=== PATIENT | female | born 1950 | race Caucasian/White ===

== ENCOUNTER → 2017-02-02 | Outpatient (CLI) | payer MEDICARE, OTHER ==
--- NOTE | 2017-02-02 15:54 | REPMRS ---
Patient History The patient states she has not had a clinical breast exam in over a year. Baseline Mammogram Patient is postmenopausal. No known family history of cancer. Reductions of both breasts, 2006. Digital Woman Screen Mammo: February 02, 2017 - Exam #: [id number] Bilateral CC and MLO view(s) were taken. Technologist: Sweetie White, Technologist FINDINGS: There are scattered fibroglandular densities. There is no evidence of cancer on this mammogram. ASSESSMENT: BI-RADS/ACR category 2 mammogram. Benign finding(s). Recommendation Routine screening mammogram of both breasts in 1 year (for women over age 40). This mammogram was interpreted with the aid of an FDA-approved computer-aided dectection system. Electronically Signed By: Jimbo Driver MD 02/02/17 [id number]
== END ==
LOC: M WHC 14:23
PROVIDERS: ATTEND Family Medicine
DX: Z12.31 Encounter for screening mammogram for malignant neoplasm of breast (principal)

== ENCOUNTER → 2017-04-28 | Outpatient (CLI) | payer MEDICARE, OTHER ==
[2017-04-28 12:50] LABS: CALCIUM LEVEL 9.6 MG/DL (8.8-10.2); CREATININE FOR GFR 1.17 MG/DL (0.55-1.02); GLOMERULAR FILTRATION RATE 49.3 (>45); PHOSPHORUS LEVEL 2.8 MG/DL (2.5-4.9); POTASSIUM SERUM 4.3 MEQ/L (3.5-5.1)
== END ==
LOC: M LAB 11:28
PROVIDERS: ATTEND Nurse Practitioner Family
DX: I10 Essential (primary) hypertension (principal)

== ENCOUNTER → 2017-12-15 | Outpatient (CLI) | payer MEDICARE, OTHER | LOC: M RAD 07:13 | DX: I70.1 Atherosclerosis of renal artery (principal) | CPT/HCPCS: 76775 ==

== ENCOUNTER → 2017-12-22 | Outpatient (CLI) | payer MEDICARE, OTHER ==
[2017-12-22 13:45] LABS: ANION GAP 6 MEQ/L (8-16); BLOOD UREA NITROGEN 12 MG/DL (7-18); CARBON DIOXIDE LEVEL 31 MEQ/L (21-32); CHLORIDE LEVEL 105 MEQ/L (98-107); GLOMERULAR FILTRATION RATE > 60.0 (>45); GLUCOSE, FASTING 113 MG/DL (70-100); POTASSIUM SERUM 4.1 MEQ/L (3.5-5.1); SODIUM LEVEL 142 MEQ/L (136-145)
== END ==
LOC: M LAB 13:00
DX: I11.9 Hypertensive heart disease without heart failure (principal)
CPT/HCPCS: 80048

== ENCOUNTER → 2018-04-18 | Outpatient (CLI) | payer MEDICARE, OTHER ==
[2018-04-18 13:14] LABS: ANION GAP 4 MEQ/L (8-16); BLOOD UREA NITROGEN 20 MG/DL (7-18); CALCIUM LEVEL 9.5 MG/DL (8.8-10.2); CARBON DIOXIDE LEVEL 34 MEQ/L (21-32); CHLORIDE LEVEL 104 MEQ/L (98-107); CREATININE FOR GFR 1.23 MG/DL (0.55-1.30); GLOMERULAR FILTRATION RATE 46.4 (>45); GLUCOSE, FASTING 87 MG/DL (70-100); POTASSIUM SERUM 4.7 MEQ/L (3.5-5.1); SODIUM LEVEL 142 MEQ/L (136-145)
== END ==
LOC: M LAB 12:05
DX: I11.9 Hypertensive heart disease without heart failure (principal)
CPT/HCPCS: 80048

== ENCOUNTER → 2018-07-12 | Outpatient (CLI) | payer MEDICARE, OTHER ==
[2018-07-12 11:09] LABS: BILIRUBIN,TOTAL 0.6 MG/DL (0.2-1.0); CALCIUM LEVEL 9.5 MG/DL (8.8-10.2); CHOLESTEROL RISK RATIO 2.253 (<5); CREATININE FOR GFR 1.26 MG/DL (0.55-1.30); GLOMERULAR FILTRATION RATE 45.1 (>45); POTASSIUM SERUM 3.8 MEQ/L (3.5-5.1); TOTAL PROTEIN 6.7 GM/DL (6.4-8.2)
== END ==
LOC: M LAB 09:57
PROVIDERS: ATTEND Physician Assistant
DX: I11.9 Hypertensive heart disease without heart failure (principal); E78.2 Mixed hyperlipidemia

== ENCOUNTER 2018-09-13 11:44 | Inpatient (IN) | payer MEDICARE, OTHER ==
[~2018-09-13] VITALS: Ht 157.5 cm; Wt 76.0 kg
[2018-09-13] MEDS: ASCORBIC ACID 500 MG TAB PO SCH (09:00)
[2018-09-13] MEDS: guaiFENesin ER 600 MG TAB PO SCH ×2 (09:00→21:41)
[2018-09-13] MEDS: IPRATROPIUM 0.5MG/ALBUTEROL 2.5MG INH SOL UD 3ML (DUONEB)(J7620) NEB PRN ×3 (11:55→12:35)
[2018-09-13 12:07] LABS: BASO % 0.2 % (0.0-1.0); EOS # 0.3 10^3/uL (0.0-0.50); EOS % 1.9 % (0.0-3.0); HEMATOCRIT 44.9 % (36.0-47.0); HEMOGLOBIN 14.6 g/dl (12.0-15.5); LYMPH # 0.9 10^3/uL (1.5-4.5); LYMPH % 6.7 % (24.0-44.0); MEAN CORPUSCULAR HEMOGLOBIN 30.5 pg (27.0-33.0); MEAN CORPUSCULAR HGB CONC 32.5 g/dl (32.0-36.5); MEAN CORPUSCULAR VOLUME 93.7 fl (80.0-96.0); MONO # 1.1 10^3/uL (0.0-0.8); MONO % 8.5 % (0.0-5.0); NEUTROPHILS # 11.1 10^3/uL (1.8-7.7); NEUTROPHILS % 82.3 % (36.0-66.0); PLATELET COUNT, AUTOMATED 211 10^3/uL (150-450); RED BLOOD COUNT 4.79 10^6/uL (4.00-5.40); WHITE BLOOD COUNT 13.4 10^3/uL (4.0-10.0)
[2018-09-13] MEDS ORDERED: CRES40TA PO (12:15)
[2018-09-13] MEDS ORDERED: ADVA230A INH (12:15)
[2018-09-13] MEDS ORDERED: PRED5TA PO (12:15)
[2018-09-13] MEDS ORDERED: PROAAER10 INH (12:15)
[2018-09-13] MEDS ORDERED: SPIR1CAP INH (12:15)
[2018-09-13] MEDS ORDERED: ASPI1TAB PO (12:15)
[2018-09-13] MEDS ORDERED: TELM1TAB37 PO (12:15)
[2018-09-13 12:19] LABS: ABG BASE EXCESS 3.5 (-2.0-2.0); ABG HCO3 29.8 MEQ/L (22.0-26.0); ABG O2 SATURATION 98.7 % (95.0-99.0); ABG PARTIAL PRESSURE CO2 51.1 mmHg (35.0-45.0); ABG PARTIAL PRESSURE O2 134.5 mmHg (75.0-100.0); ABG STANDARD HCO3 27.6 MEQ/L (22.0-26.0); ABG TOTAL CO2 31.3 MEQ/L (23.0-31.0); ABG pH (ARTERIAL) 7.383 UNITS (7.350-7.450)
--- NOTE | 2018-09-13 12:33 | REP ---
Chest one-view HISTORY: Cough Comparison: 11/03/2015 The lungs are clear. The heart is normal in size. The pulmonary vasculature is normal in appearance. Impression: No acute disease. Electronically Signed by Jesse Pierson MD 09/13/2018 12:24 P
[2018-09-13 12:47] LABS: INFLUENZA A AMPLIFICATION POSITIVE (NEGATIVE); INFLUENZA B AMPLIFICATION NEGATIVE (NEGATIVE)
[2018-09-13 12:50] LABS: ALBUMIN 4.1 GM/DL (3.2-5.2); ALT/SGPT 27 U/L (12-78); BILIRUBIN,DIRECT 0.2 MG/DL (0.0-0.2); BILIRUBIN,TOTAL 0.6 MG/DL (0.2-1.0); BLOOD UREA NITROGEN 22 MG/DL (7-18); CALCIUM LEVEL 8.6 MG/DL (8.8-10.2); CARBON DIOXIDE LEVEL 30 MEQ/L (21-32); CHLORIDE LEVEL 107 MEQ/L (98-107); CPK CREATINE PHOSPHOKINASE 252 U/L (26-192); CREATININE FOR GFR 0.98 MG/DL (0.55-1.30); GLOMERULAR FILTRATION RATE > 60.0 (>45); GLUCOSE, FASTING 100 MG/DL (70-100); POTASSIUM SERUM 3.6 MEQ/L (3.5-5.1); SODIUM LEVEL 144 MEQ/L (136-145); TOTAL PROTEIN 6.6 GM/DL (6.4-8.2)
[2018-09-13 12:51] LABS: TROPONIN I < 0.02 NG/ML (< 0.10)
[2018-09-13] MEDS ORDERED: OSELTAMIVIR PHOSPHATE 75 MG CAP (TAMIFLU) PO ONE (13:00)
[2018-09-13 13:10] LABS: MB/CK RELATIVE INDEX 1.67 (< OR =4); NT-PRO BNP 308 PG/ML (<125); THYROID STIMULATING HORMONE 0.701 uIU/ML (0.358-3.740)
[2018-09-13] MEDS ORDERED: FIBECHW4 PO (13:34)
[2018-09-13] MEDS ORDERED: MUCI600T31 PO (13:34)
[2018-09-13] MEDS ORDERED: ALBU83IN INH (13:34)
[2018-09-13] MEDS ORDERED: VITA500C24 PO (13:34)
[2018-09-13] MEDS: IPRATROPIUM 0.5MG/ALBUTEROL 2.5MG INH SOL UD 3ML (DUONEB)(J7620) NEB SCH ×2 (13:57→19:49)
[2018-09-13] MEDS ORDERED: IPRATROPIUM 0.5MG/ALBUTEROL 2.5MG INH SOL UD 3ML (DUONEB)(J7620) NEB PRN (14:00)
[2018-09-13] MEDS: HEPARIN SOD (PORCINE) 5000 UNITS/ML VIAL SC SCH ×2 (14:00→21:45)
--- NOTE | 2018-09-13 14:49 | HPE ---
DATE OF ADMISSION: 09/13/2018 CHIEF COMPLAINT: Shortness of breath times 1 day. HISTORY OF PRESENT ILLNESS: This is a 68-year-old female with a past medical history of chronic obstructive pulmonary disease (COPD) on 2 liters home oxygen at night, hypertension, hyperlipidemia, who presents with significant shortness of breath since 2 a.m. this morning. Patient reports that she does have chronic COPD for which she follows with Dr. Washburn and she has been compliant with her home inhalers and 2 liters oxygen, which she takes at night. She does report her granddaughter, who visits her son, whom she lives with, recently had respiratory syncytial virus (RSV) infection. She does have a chronic cough with white productive phlegm that is unchanged but since about 2 a.m. this morning, she just felt very tight with difficulty breathing and felt like she could not catch her breath. She also reports some chest pain only with her cough. She denies any recent fevers. Her chronic cough, again is unchanged. REVIEW OF SYSTEMS: Negative on 14 out of 14 systems except as noted above. PAST MEDICAL HISTORY: As noted above in the history of present illness (HPI). PAST SURGICAL HISTORY: Patient has a history of a stent placed in a brain aneurysm. She has a history of a cholecystectomy, section, breast reduction surgery and a right carotid endarterectomy. HOME MEDICATIONS: Patient's home medications are: - albuterol every 4 hours as needed shortness of breath. - prednisone 5 mg daily - Advair two puffs twice daily - Spiriva one inhalation daily - vitamin C 500 mg by mouth daily - aspirin 81 mg daily - Mucinex 600 mg twice daily - Crestor 40 mg at bedtime - telmisartan 80 mg at bedtime ALLERGIES: No known drug allergies. FAMILY HISTORY: No significant family history of lung cancer. SOCIAL HISTORY: Patient is . She currently lives with one of her sons. She was a former smoker, smoking one pack a day for many years but she quite 4 years ago. 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 No alcohol or drug use. PHYSICAL EXAMINATION: On exam, she is currently afebrile to 98.4. She is tachycardic up to 117, blood pressure 160/79, respiratory rate 18, saturating 93% on 2 liters. GENERAL: She appears uncomfortable and complains of chest pain while coughing. HEENT: Oropharynx is clear. CARDIOVASCULAR: Tachycardic. No murmurs, rubs or gallops. LUNGS: She has got prominent expiratory wheezing throughout with decreased air movement. ABDOMEN: Soft, nontender. Nondistended. EXTREMITIES: No clubbing, cyanosis or edema. NEURO: She is alert and oriented times three. Follows simple commands. No focal neurological deficits. SKIN: Intact. PSYCH: Mood stable. MUSCULOSKELETAL: Moves all extremities equally. LABS: Reveal a leukocytosis with white count at 13.4, hemoglobin 14.6, platelets are 211. Chemistry reveals creatinine of 0.98, potassium 3.6, blood gas shows a pH of 7.38, pCO2 51, pO2 134. She is Influenza A positive. IMAGING: She does have a chest x-ray, which shows clear lungs and no acute disease. ASSESSMENT/PLAN: This is a 68-year-old female with past medical history of COPD on home oxygen as needed at night. Hypertension, hyperlipidemia, who presents with 1-day history of shortness of breath likely secondary to COPD exacerbation triggered by influenza A infection. PROBLEMS: 1. Acute on chronic hypoxemic respiratory failure likely secondary to COPD exacerbation triggered by an influenza infection. At this time, we will admit the patient for supportive care for her COPD exacerbation likely triggered by flu. I have placed her on nebulizers around the clock and as needed. She will received supplemental oxygen. I will place her on IV steroids with Solu-Medrol 80 mg IV every 8 hours. She should continue to have this steroid tapered. I have also started her on Tamiflu given that she is less than 72 hours of symptom onset. She can continue 75 mg twice daily for 5 days. She can be discharged when she is clinically improving. 2. Hypertension: I will continue her home telmisartan. 3. Hyperlipidemia: I will continue her home Crestor. 4. Deep venous thrombosis (DVT) prophylaxis: She is placed on subcutaneous heparin.
[2018-09-13] MEDS: methylPREDNISolone INJ 125 MG/2 ML VIAL (J2930) IV SCH ×2 (15:00→23:43)
--- NOTE | 2018-09-13 15:19 | ECGEPIP ---
Stationary ECG Study [facility] - ED Test Date: 2018-09-13 Pat Name: NEELIMA HURTADO Department: Room: - Gender: F [employer]: : 1950 Requested By: Satish Mcnally Order Number: [id number] Reading MD: Susie Valdez Measurements Intervals [place] Rate: 116 P: 63 GA: 127 QRS: 63 QRSD: 86 T: 57 QT: 314 QTc: 437 Interpretive Statements SINUS TACHYCARDIA ABNORMAL RHYTHM ECG NSTTW ABNORMALITY INCREASED RATE 03/03/15 Electronically Signed On 09-13-2018 15:19:02 EDT by Susie Valdez
[2018-09-13 16:43] LABS: ABG HCO3 26.1 MEQ/L (22.0-26.0); ABG O2 SATURATION 97.3 % (95.0-99.0); ABG PARTIAL PRESSURE CO2 43.1 mmHg (35.0-45.0); ABG PARTIAL PRESSURE O2 90.3 mmHg (75.0-100.0); ABG STANDARD HCO3 25.4 MEQ/L (22.0-26.0); ABG TOTAL CO2 27.4 MEQ/L (23.0-31.0)
[2018-09-13] MEDS: ACETAMINOPHEN TAB 650MG DOSE (2X325MG) PO PRN (21:04)
[2018-09-13 21:35] VITALS: BP 172/76
[2018-09-13] MEDS: ROSUVASTATIN 10 MG TAB (CRESTOR) PO SCH (21:41)
[2018-09-13] MEDS: OSELTAMIVIR PHOSPHATE 75 MG CAP (TAMIFLU) PO SCH (21:41)
[2018-09-13] MEDS: TELMISARTAN 20 MG TAB PO SCH (21:45)
[2018-09-13] MEDS ORDERED: CHLORASEPTIC SPRAY MT PRN (23:00)
[2018-09-14] VITALS: BP 142/59
[2018-09-14] MEDS: IPRATROPIUM 0.5MG/ALBUTEROL 2.5MG INH SOL UD 3ML (DUONEB)(J7620) NEB SCH ×4 (02:00→20:00)
[2018-09-14 04:00] VITALS: BP 153/87
[2018-09-14] MEDS: HEPARIN SOD (PORCINE) 5000 UNITS/ML VIAL SC SCH ×3 (06:12→22:06)
[2018-09-14] MEDS: methylPREDNISolone INJ 125 MG/2 ML VIAL (J2930) IV SCH ×3 (06:12→22:06)
[2018-09-14] MEDS: ACETAMINOPHEN TAB 650MG DOSE (2X325MG) PO PRN (06:13)
[2018-09-14 06:17] LABS: HEMATOCRIT 41.7 % (36.0-47.0); HEMOGLOBIN 13.8 g/dl (12.0-15.5); MEAN CORPUSCULAR HGB CONC 33.1 g/dl (32.0-36.5); MEAN CORPUSCULAR VOLUME 90.7 fl (80.0-96.0); PLATELET COUNT, AUTOMATED 211 10^3/uL (150-450); WHITE BLOOD COUNT 9.4 10^3/uL (4.0-10.0)
[2018-09-14 06:42] LABS: BLOOD UREA NITROGEN 22 MG/DL (7-18); CARBON DIOXIDE LEVEL 29 MEQ/L (21-32); CHLORIDE LEVEL 105 MEQ/L (98-107); CREATININE FOR GFR 0.99 MG/DL (0.55-1.30); GLOMERULAR FILTRATION RATE 59.6 (>45); GLUCOSE, FASTING 137 MG/DL (70-100); POTASSIUM SERUM 3.9 MEQ/L (3.5-5.1); SODIUM LEVEL 140 MEQ/L (136-145)
[2018-09-14 08:00] VITALS: BP 122/78
[2018-09-14] MEDS: TIOTROPIUM INHALER/CAPSULE (SPIRIVA) INH SCH (08:00)
[2018-09-14] MEDS: ASPIRIN 81 MG ENTERIC TAB PO SCH (08:14)
[2018-09-14] MEDS: guaiFENesin ER 600 MG TAB PO SCH ×2 (08:14→22:05)
[2018-09-14] MEDS: ASCORBIC ACID 500 MG TAB PO SCH (08:14)
[2018-09-14] MEDS: OSELTAMIVIR PHOSPHATE 75 MG CAP (TAMIFLU) PO SCH ×2 (08:14→22:05)
[2018-09-14 08:33] LABS: CPK CREATINE PHOSPHOKINASE 219 U/L (26-192); MB/CK RELATIVE INDEX 2.92 (< OR =4); TROPONIN I < 0.02 NG/ML (< 0.10)
[2018-09-14] MEDS: ADVAIR HFA 230/21MCG INHALER INH SCH ×2 (09:00→20:03)
[2018-09-14 14:00] VITALS: BP 148/74
[2018-09-14 18:00] VITALS: BP 146/88
[2018-09-14 22:00] VITALS: BP 157/84
[2018-09-14] MEDS: ROSUVASTATIN 10 MG TAB (CRESTOR) PO SCH (22:05)
[2018-09-14] MEDS: TELMISARTAN 20 MG TAB PO SCH (23:43)
[2018-09-15] VITALS (7 sets, daily range): BP systolic 135–188; BP diastolic 78–89
[2018-09-15] MEDS: IPRATROPIUM 0.5MG/ALBUTEROL 2.5MG INH SOL UD 3ML (DUONEB)(J7620) NEB SCH ×4 (01:32→20:00)
[2018-09-15] MEDS: ACETAMINOPHEN TAB 650MG DOSE (2X325MG) PO PRN (03:21)
[2018-09-15] MEDS: BENZONATATE 100 MG CAP PO PRN ×2 (03:39→03:40)
[2018-09-15 06:22] LABS: HEMATOCRIT 41.7 % (36.0-47.0); HEMOGLOBIN 13.5 g/dl (12.0-15.5); MEAN CORPUSCULAR HEMOGLOBIN 29.9 pg (27.0-33.0); MEAN CORPUSCULAR HGB CONC 32.4 g/dl (32.0-36.5); MEAN CORPUSCULAR VOLUME 92.3 fl (80.0-96.0); PLATELET COUNT, AUTOMATED 216 10^3/uL (150-450); RED BLOOD COUNT 4.52 10^6/uL (4.00-5.40); WHITE BLOOD COUNT 13.1 10^3/uL (4.0-10.0)
--- NOTE | 2018-09-15 06:22 | IPN ---
DATE OF VISIT: 09/14/2018 The patient was admitted overnight. Currently reporting respirations much improved, still has some wheeze, denies any chest pain, pressure or discomfort. Denies any fever or chills. VITAL SIGNS: Temperature 98, pulse 104, respirations 20, blood pressure 146/88, pulse ox 92% on 2 liters nasal cannula. The patient at home on 2 liters nasal cannula. LABORATORY DATA: WBC 9.4, hemoglobin 13.8, hematocrit 41.7, platelets 211. Chemistries: Sodium 140, potassium 3.9, chloride 105, bicarbonate 29, BUN 22, creatinine 0.99, cardiac enzymes negative times two. Influenza A positive. PHYSICAL EXAMINATION: GENERAL: The patient is alert, comfortable, in no acute distress. HEENT: Normocephalic atraumatic. PULMONARY: Bilateral expiratory wheeze. No rhonchi. CARDIAC: Regular, S1, S2. Mild tachycardia. ABDOMEN: Soft, nontender. Positive bowel sounds. EXTREMITIES: No cyanosis, clubbing or edema. ASSESSMENT AND PLAN: This is a 68-year-old female patient with underlying medical history of chronic pulmonary obstructive disease (COPD) on 2 liters oxygen at home at night, hypertension, dyslipidemia admitted for acute COPD exacerbation due to influenza. PROBLEMS: 1. Acute COPD exacerbation due to influenza with chronic hypoxia. Oxygen supplementation, nebulizer treatment, Solu-Medrol, taper as tolerated. Tamiflu, Advair, Spiriva. 2. Hypertension. Continue home medication. 3. Dyslipidemia. Continue statin. 4. Deep venous thrombosis(DVT) prophylaxis. Heparin subcutaneous. DISPOSITION: Pending clinical improvement.
[2018-09-15 06:47] LABS: CALCIUM LEVEL 8.9 MG/DL (8.8-10.2); CREATININE FOR GFR 1.26 MG/DL (0.55-1.30); GLOMERULAR FILTRATION RATE 45.1 (>45); MAGNESIUM LEVEL 2.4 MG/DL (1.8-2.4); POTASSIUM SERUM 3.9 MEQ/L (3.5-5.1)
[2018-09-15] MEDS: methylPREDNISolone INJ 125 MG/2 ML VIAL (J2930) IV SCH (06:51)
[2018-09-15] MEDS: HEPARIN SOD (PORCINE) 5000 UNITS/ML VIAL SC SCH ×3 (06:52→21:58)
[2018-09-15] MEDS: ADVAIR HFA 230/21MCG INHALER INH SCH ×2 (08:51→20:50)
[2018-09-15] MEDS: TIOTROPIUM INHALER/CAPSULE (SPIRIVA) INH SCH (08:51)
[2018-09-15] MEDS: ASCORBIC ACID 500 MG TAB PO SCH (09:05)
[2018-09-15] MEDS: OSELTAMIVIR PHOSPHATE 75 MG CAP (TAMIFLU) PO SCH ×2 (09:05→21:57)
[2018-09-15] MEDS: ASPIRIN 81 MG ENTERIC TAB PO SCH (09:05)
[2018-09-15] MEDS: guaiFENesin ER 600 MG TAB PO SCH ×2 (09:05→21:57)
--- NOTE | 2018-09-15 12:47 | IPNPDOC ---
Text Note Date of Service The patient was seen on 09/15/18. NOTE SUBJECTIVE: Feeling better today. Currently reporting respirations much improved, still has some wheeze, denies any chest pain, pressure or discomfort. Denies any fever or chills. PHYSICAL EXAMINATION: VITAL SIGNS:As below GENERAL: The patient is alert, comfortable, in no acute distress. HEENT: Normocephalic atraumatic. PULMONARY: Bilateral wheezing and ronchi CARDIAC: Regular, S1, S2. Mild tachycardia. ABDOMEN: Soft, nontender. Positive bowel sounds. EXTREMITIES: No cyanosis, clubbing or edema. Labs and Radiology : As below ASSESSMENT AND PLAN: This is a 68-year-old female patient with underlying medical history of chronic pulmonary obstructive disease (COPD) on 2 liters oxygen at home at night, hypertension, dyslipidemia admitted for acute COPD exacerbation due to influenza. Influenza A continue Tamiflu and isolation COPD exacerbation due to influenza. nebulizer treatment, Solu-Medrol, taper as tolerated. Tamiflu, Advair, Spiriva. Acute on chronic hypoxic respiratory failure on admission due to Influenza and COPD exacerbation currently improved and back to baseline oxygen requirement. continue oxygen supplementation . Currently at 2 liters. Hypertension. Continue home medication. Dyslipidemia. Continue statin. Deep venous thrombosis(DVT) prophylaxis. Heparin subcutaneous. DISPOSITION: Home in the next 24 hours VS,Adriana, I+O VS, Adriana, I+O Laboratory Tests 09/15/18 06:04 Red Blood Count 4.52, Mean Corpuscular Volume 92.3, Mean Corpuscular Hemoglobin 29.9, Mean Corpuscular Hemoglobin Concent 32.4, Red Cell Distribution Width 13.7, Calcium Level 8.9 Vital Signs Date Time Temp Pulse Resp B/P (MAP) Pulse Ox O2 Delivery O2 Flow Rate FiO2 09/15/18 10:00 188/88 (121) 09/15/18 06:00 98.6 75 19 96 09/15/18 02:00 2.0 09/13/18 21:15 Nasal Cannula I&O- Last 24 Hours up to 6 AM 09/15/18 06:00 Intake Total 520 ml Balance 520 ml YOAN KASPER MD Sep 15, 2018 12:47
[2018-09-15] MEDS: ROSUVASTATIN 10 MG TAB (CRESTOR) PO SCH (21:57)
[2018-09-15] MEDS: TELMISARTAN 20 MG TAB PO SCH (22:07)
[2018-09-16] MEDS: IPRATROPIUM 0.5MG/ALBUTEROL 2.5MG INH SOL UD 3ML (DUONEB)(J7620) NEB SCH ×2 (00:08→07:49)
[2018-09-16 02:00] VITALS: BP 130/72
[2018-09-16] MEDS: HEPARIN SOD (PORCINE) 5000 UNITS/ML VIAL SC SCH (05:13)
[2018-09-16 06:00] VITALS: BP 136/64
[2018-09-16 06:11] LABS: HEMATOCRIT 41.1 % (36.0-47.0); HEMOGLOBIN 13.2 g/dl (12.0-15.5); MEAN CORPUSCULAR HEMOGLOBIN 30.1 pg (27.0-33.0); MEAN CORPUSCULAR HGB CONC 32.1 g/dl (32.0-36.5); MEAN CORPUSCULAR VOLUME 93.6 fl (80.0-96.0); PLATELET COUNT, AUTOMATED 217 10^3/uL (150-450); RED BLOOD COUNT 4.39 10^6/uL (4.00-5.40); WHITE BLOOD COUNT 11.6 10^3/uL (4.0-10.0)
[2018-09-16 06:31] LABS: CALCIUM LEVEL 8.7 MG/DL (8.8-10.2); CREATININE FOR GFR 1.23 MG/DL (0.55-1.30); GLOMERULAR FILTRATION RATE 46.4 (>45); MAGNESIUM LEVEL 2.4 MG/DL (1.8-2.4); POTASSIUM SERUM 3.3 MEQ/L (3.5-5.1)
[2018-09-16] MEDS: ADVAIR HFA 230/21MCG INHALER INH SCH (07:48)
[2018-09-16] MEDS ORDERED: POTASSIUM CHLORIDE 10 MEQ SR TABLET PO ONE (08:00)
[2018-09-16] MEDS: guaiFENesin ER 600 MG TAB PO SCH (08:20)
[2018-09-16] MEDS: OSELTAMIVIR PHOSPHATE 75 MG CAP (TAMIFLU) PO SCH (08:20)
[2018-09-16] MEDS: ASPIRIN 81 MG ENTERIC TAB PO SCH (08:20)
[2018-09-16] MEDS: ASCORBIC ACID 500 MG TAB PO SCH (08:20)
[2018-09-16] MEDS ORDERED: predniSONE 20 MG TAB PO SCH (09:00)
[2018-09-16] MEDS ORDERED: PRED10TA2 PO (10:10)
[2018-09-16] MEDS ORDERED: BENZ-18 PO (10:10)
[2018-09-16] MEDS ORDERED: AUGM875T28 PO (10:10)
[2018-09-16] MEDS ORDERED: OSEL75CA2 PO (10:10)
== END 2018-09-16 12:14 | disposition home or self-care (01) | DRG 193 ==
LOC: M ED 11:44 → EDBD 11:44 → M ED INP 13:53 → M MSPAV 09-14 17:59
PROVIDERS: ADMIT Internal Medicine; ATTEND Hospitalist
DX: J10.1 Influenza due to other identified influenza virus with other respiratory manifestations (principal); J96.21 Acute and chronic respiratory failure with hypoxia; J44.1 Chronic obstructive pulmonary disease with (acute) exacerbation; E78.5 Hyperlipidemia, unspecified; I10 Essential (primary) hypertension

== ENCOUNTER → 2018-11-11 | Outpatient (CLI) | payer MEDICARE, OTHER ==
[~2018-11-11] MED LIST: ADVA230A INH; ALBU83IN INH; ASPI81TA26 PO; AUGM875T28 PO; BENZ-18 PO; CRES40TA PO; FIBECHW4 PO; MUCI600T31 PO; OSEL75CA2 PO; PRED10TA2 PO; PRED5TA PO; PROAAER10 INH; SPIR1CAP INH; TELM1TAB37 PO; VITA500C24 PO
[2018-11-11 10:14] LABS: CALCIUM LEVEL 9.2 MG/DL (8.8-10.2); CREATININE FOR GFR 2.83 MG/DL (0.55-1.30); GLOMERULAR FILTRATION RATE 17.7 (>45); POTASSIUM SERUM 3.7 MEQ/L (3.5-5.1)
== END ==
LOC: M LAB 09:20
PROVIDERS: ATTEND Physician Assistant
DX: I11.9 Hypertensive heart disease without heart failure (principal)

== ENCOUNTER → 2018-11-14 | Outpatient (CLI) | payer MEDICARE, OTHER ==
[2018-11-14 10:52] LABS: CALCIUM LEVEL 8.7 MG/DL (8.8-10.2); CREATININE FOR GFR 2.76 MG/DL (0.55-1.30); GLOMERULAR FILTRATION RATE 18.2 (>45); POTASSIUM SERUM 3.6 MEQ/L (3.5-5.1)
== END ==
LOC: M LAB 09:47
PROVIDERS: ATTEND Physician Assistant
DX: I11.9 Hypertensive heart disease without heart failure (principal)

== ENCOUNTER → 2018-11-23 | Outpatient (CLI) | payer MEDICARE, OTHER ==
[2018-11-23 17:01] LABS: CALCIUM LEVEL 8.7 MG/DL (8.8-10.2); CREATININE FOR GFR 1.5 MG/DL (0.55-1.30); GLOMERULAR FILTRATION RATE 36.9 (>45); POTASSIUM SERUM 3.8 MEQ/L (3.5-5.1)
== END ==
LOC: M LAB 15:44
PROVIDERS: ATTEND Physician Assistant
DX: I11.9 Hypertensive heart disease without heart failure (principal)

== ENCOUNTER → 2018-12-13 | Outpatient (CLI) | payer MEDICARE, OTHER ==
[2018-12-13 12:41] LABS: CALCIUM LEVEL 9.2 MG/DL (8.8-10.2); CREATININE FOR GFR 1.25 MG/DL (0.55-1.30); GLOMERULAR FILTRATION RATE 45.5 (>45); POTASSIUM SERUM 4.6 MEQ/L (3.5-5.1)
== END ==
LOC: M LRY 08:21
PROVIDERS: ATTEND Physician Assistant
DX: I11.9 Hypertensive heart disease without heart failure (principal)

== ENCOUNTER → 2019-03-15 | Outpatient (CLI) | payer MEDICARE, OTHER ==
[2019-03-15 12:12] LABS: CREATININE FOR GFR 1.86 MG/DL (0.55-1.30); GLOMERULAR FILTRATION RATE 28.7 (>45); POTASSIUM SERUM 4.3 MEQ/L (3.5-5.1)
== END ==
LOC: M LRY 09:08
PROVIDERS: ATTEND Physician Assistant
DX: I11.9 Hypertensive heart disease without heart failure (principal)

== ENCOUNTER → 2019-03-27 | Outpatient (CLI) | payer MEDICARE, OTHER ==
[2019-03-27 17:02] LABS: CALCIUM LEVEL 9.2 MG/DL (8.8-10.2); CREATININE FOR GFR 1.84 MG/DL (0.55-1.30); POTASSIUM SERUM 4.6 MEQ/L (3.5-5.1)
== END ==
LOC: M LRY 10:30
PROVIDERS: ATTEND Physician Assistant
DX: I11.9 Hypertensive heart disease without heart failure (principal)

== ENCOUNTER → 2019-04-13 | Outpatient (REF) | payer MEDICARE, OTHER ==
[2019-04-13 17:49] LABS: COMPLEMENT C3 96 MG/DL (90-180); COMPLEMENT C4 22 MG/DL (10-40); TOTAL PROTEIN 6.6 GM/DL (6.4-8.2)
[2019-04-13 18:04] LABS: TOTAL PROTEIN,RANDOM URINE 107.1 MG/DL (0.0-12.0); URINE TOTAL PROTEIN 107.1 MG/DL (0-12)
[2019-04-14 10:34] LABS: HEPATITIS B SURFACE ANTIBODY NEGATIVE (POSITIVE)
[2019-04-14 10:45] LABS: HEPATITIS B SURFACE ANTIGEN NEGATIVE (NEGATIVE)
[2019-04-14 11:13] LABS: HEPATITIS B CORE ANTIBODY IGM NEGATIVE (NEGATIVE); HEPATITIS C VIRUS ABY INDEX 0.1 INDEX (<0.8)
[2019-04-18 10:44] LABS: ALBUMIN % 65.3 % (55.8-66.1); ALPHA-1-GLOBULIN % 5.2 % (2.9-4.9); ALPHA-2-GLOBULINS % 9.5 % (7.1-11.8); BETA-1-GLOBULINS % 6.5 % (4.7-7.2); BETA-2-GLOBULINS % 4.3 % (3.2-6.5); GAMMA GLOBULIN % 9.2 % (11.1-18.8)
[2019-04-18 10:45] LABS: ALBUMIN 4.31 GM/DL (3.29-5.55); ALPHA-1-GLOBULINS 0.34 GM/DL (0.17-0.41); ALPHA-2-GLOBULINS 0.63 GM/DL (0.42-0.99); BETA-1-GLOBULINS 0.43 GM/DL (0.28-0.60); BETA-2-GLOBULINS 0.28 GM/DL (0.19-0.55); GAMMA GLOBULINS 0.61 GM/DL (0.65-1.58)
[2019-04-20 00:16] LABS: ANCA-ATYPICAL <1:20 titer (Neg:<1:20); ANTI DS-DNA AB <1:10 titer (.); ANTINUCLEAR ANTIBODIES DIRECT Negative (Negative); CYTOPLASMIC NEUTROP AB ANCA-C <1:20 titer (Neg:<1:20); FREE KAPPA LIGHT CHAINS SERUM 25.7 mg/L (3.3-19.4); FREE LAMBDA LIGHT CHAINS SERUM 25.2 mg/L (5.7-26.3); KAPPA/LAMBDA RATIO SERUM 1.02 (0.26-1.65); PERINUCLEAR AB ANCA-P <1:20 titer (Neg:<1:20)
== END ==
LOC: M LAB REF 17:02
PROVIDERS: ATTEND Internal Medicine Nephrology
DX: R80.9 Proteinuria, unspecified (principal)

== ENCOUNTER → 2019-07-06 | Outpatient (CLI) | payer MEDICARE, OTHER ==
[2019-07-06 17:48] LABS: CALCIUM LEVEL 9.2 MG/DL (8.8-10.2)
[2019-07-06 18:00] LABS: TOTAL 25(OH) VITAMIN D 110.7 NG/ML (30.0-100.0)
== END ==
LOC: M LRY 13:57
PROVIDERS: ATTEND Internal Medicine Endocrinology, Diabetes & Metabolism
DX: M81.0 Age-related osteoporosis without current pathological fracture (principal); E55.9 Vitamin D deficiency, unspecified

== ENCOUNTER → 2020-10-31 | Outpatient (CLI) | payer MEDICARE, OTHER ==
--- NOTE | 2020-10-31 11:42 | REP ---
INDICATION: HYPERTENSION,SENIOR LIVING (CURRENT) USE OF SYSTEMIC S. COMPARISON: None. TECHNIQUE: Real-time sonographic evaluation of the abdominal aorta performed. The study is extremely limited due to bowel gas and body habitus. FINDINGS: There is no sonographic evidence of abdominal aortic aneurysm of the proximal and mid abdominal aorta. Other portions of the abdominal aorta are not visualized. Maximum AP diameter of abdominal aorta: Proximal (at diaphragm):2.2 cm. At renal artery level: Not visualized. Mid abdominal aorta:2.5 cm. Distal abdominal aorta (prebifurcation): Not visualized. IMPRESSION: No sonographic evidence of abdominal aortic aneurysm of the proximal and mid abdominal aorta..The abdominal aorta at the level of the renal arteries and more distally is not visualized due to overlying bowel gas and patient body habitus. Further evaluation may be made with CT scan. <Electronically signed by Jimbo Driver > 10/31/20 1514
== END ==
LOC: M RAD 09:38
PROVIDERS: ATTEND Nurse Practitioner Adult Health
DX: Z13.6 Encounter for screening for cardiovascular disorders (principal); I10 Essential (primary) hypertension; Z79.52 Long term (current) use of systemic steroids

== ENCOUNTER → 2020-12-16 | Outpatient (CLI) | payer MEDICARE, OTHER ==
--- NOTE | 2020-12-16 13:08 | REP ---
INDICATION: I77.9 CAROTID ARTERIAL STENOSIS COMPARISON: 11/30/2019. TECHNIQUE: Real-time ultrasound evaluation and duplex Doppler interrogation of the extracranial carotid vasculature is performed. FINDINGS: There is mild to moderate plaquing and narrowing in both carotid bulbs extending into the internal and external carotid arteries. Luminal narrowing is less than 50%. There is no evidence of hemodynamically significant stenosis of either internal carotid artery. Normal flow velocities are seen. There is normal direction of flow in the right vertebral artery, the left vertebral bowl artery is not visualized. RIGHT LEFT Peak systolic velocity ICA 97.7 cm/s 66.1 cm/s End diastolic velocity ICA 34.1 cm/s 19.5 cm/s Peak systolic velocity CCA 82.2 cm/s 79.4cm/s Peak systolic velocity ECA 94.0 cm/s 109.0 cm/s ICA/CCA ratio 1.19 0.83 IMPRESSION: Bilateral luminal narrowing of the internal carotid arteries less than 50%. No evidence of hemodynamically significant stenosis. <Electronically signed by Jimbo Driver > 12/16/20 [id number]
== END ==
LOC: M RAD 11:59
PROVIDERS: ATTEND Surgery
DX: I77.9 Disorder of arteries and arterioles, unspecified (principal); R09.89 Other specified symptoms and signs involving the circulatory and respiratory systems

== ENCOUNTER 2022-02-21 15:47 | Inpatient (IN) | payer MEDICARE, OTHER ==
[~2022-02-21] VITALS: Ht 157.5 cm; Wt 76.3 kg
[~2022-02-21 15:47] MED LIST changes: +ALBU2.5V10 INH; -ALBU83IN INH
[2022-02-21] MEDS: COMBIVENT RESPIMAT 100-20MCG INHALER 4GM INH SCH ×3 (16:36→19:55)
[2022-02-21 16:46] LABS: BASO % 0.2 % (0.0-1.0); EOS # 0.1 10^3/uL (0.0-0.5); EOS % 0.5 % (0.0-3.0); HEMATOCRIT 44.4 % (36.0-47.0); LYMPH # 1.2 10^3/uL (1.5-5.0); LYMPH % 6.8 % (24.0-44.0); MEAN CORPUSCULAR HEMOGLOBIN 30.5 pg (27.0-33.0); MEAN CORPUSCULAR HGB CONC 31.5 g/dl (32.0-36.5); MEAN CORPUSCULAR VOLUME 96.7 fl (80.0-96.0); MONO # 0.7 10^3/uL (0.0-0.8); NEUTROPHILS # 16.1 10^3/uL (1.5-8.5); NEUTROPHILS % 87.8 % (36.0-66.0); PLATELET COUNT, AUTOMATED 274 10^3/uL (150-450); RED BLOOD COUNT 4.59 10^6/uL (4.00-5.40); WHITE BLOOD COUNT 18.4 10^3/uL (4.0-10.0)
[2022-02-21] MEDS ORDERED: VITATAB54 PO (16:54)
[2022-02-21] MEDS ORDERED: ASPI-424 PO (16:54)
[2022-02-21] MEDS ORDERED: PRED10TA2 PO (16:54)
[2022-02-21] MEDS ORDERED: RALO1TAB PO (16:54)
[2022-02-21] MEDS ORDERED: AMLO1TAB24 PO (16:57)
[2022-02-21] MEDS ORDERED: MUCI600T31 PO (16:58)
[2022-02-21] MEDS ORDERED: HOME MED LIST COMPLETE! XX SCH (17:00)
[2022-02-21 17:22] LABS: ALBUMIN 3.6 GM/DL (3.2-5.2); BILIRUBIN,DIRECT 0.2 MG/DL (0.0-0.2); BILIRUBIN,TOTAL 0.6 MG/DL (0.2-1.0); CALCIUM LEVEL 9.4 MG/DL (8.8-10.2); CREATININE FOR GFR 1.18 MG/DL (0.55-1.30); GLOMERULAR FILTRATION RATE 48.1 (>39); POTASSIUM SERUM 4.5 MEQ/L (3.5-5.1); THYROID STIMULATING HORMONE 0.616 uIU/ML (0.358-3.740)
[2022-02-21] MEDS ORDERED: ISOVUE-370 76% 100ML VIAL As Ordered ONE ×2 (17:47→18:29)
[2022-02-21] MEDS ORDERED: guaiFENesin DM LIQ 10ML UD PO PRN (19:35)
[2022-02-21] MEDS: methylPREDNISolone 125MG 2ML VIAL IV SCH (20:00)
[2022-02-21] MEDS ORDERED: IPRATROPIUM 0.5MG/ALBUTEROL 2.5MG INH SOL UD 3ML (DUONEB) NEB SCH (20:00)
[2022-02-21] MEDS: LEVALBUTEROL 1.25 MG/0.5 ML CONCENTRATE NEB INH SCH (20:00)
[2022-02-21] MEDS: ADVAIR HFA 230/21MCG INHALER INH SCH (20:15)
[2022-02-21 20:57] LABS: APPEARANCE, URINE MANUAL CLEAR (CLEAR); COLOR, URINE MANUAL LT YELLOW (YELLOW)
[2022-02-21 20:58] LABS: PH,URINE MAN 5.5 UNITS (5.0 - 7.0)
[2022-02-21 20:59] LABS: BILIRUBIN, URINE MANUAL NEGATIVE (NEGATIVE); BLOOD URINE MANUAL POSITIVE (NEGATIVE); GLUCOSE, URINE (UA) MANUAL NEGATIVE (NEGATIVE); KETONE, URINE MANUAL NEGATIVE (NEGATIVE); NITRITE, URINE MANUAL NEGATIVE (NEGATIVE); PROTEIN, URINE MANUAL 1+ mg/dL (NEGATIVE); SPECIFIC GRAVITY,URINE MANUAL 1.005 (1.002-1.035); UROBILINOGEN, URINE MANUAL NORMAL (NORMAL)
[2022-02-21] MEDS ORDERED: guaiFENesin ER 600 MG TAB PO SCH (21:00)
[2022-02-21 21:01] LABS: LEUKOCYTE ESTERASE, URINE MAN NEGATIVE (NEGATIVE)
[2022-02-21 21:15] LABS: HYALINE CAST, URINE NONE SEEN /lpf (0-1); MUCUS, URINE SMALL AMOUNT (NEGATIVE); SQUAMOUS EPITHELIAL CELL URINE SMALL AMOUNT /hpf (SMALL AMT); WBC, URINE NONE SEEN /hpf (0-3)
[2022-02-21 21:16] LABS: BACTERIA, URINE SMALL AMOUNT
[2022-02-21 22:00] VITALS: O2SAT 95
[2022-02-21 22:01] VITALS: O2SAT 96
[2022-02-21 22:18] VITALS: BP 160/72
[2022-02-21] MEDS: DOXYCYCLINE HYCLATE 100MG TABLET PO SCH (22:53)
[2022-02-21] MEDS: ASPIRIN 81MG ENTERIC TABLET PO SCH (22:53)
[2022-02-21] MEDS: ROSUVASTATIN 10 MG TAB (CRESTOR) PO SCH (22:53)
[2022-02-21 23:00] VITALS: O2SAT 92
[2022-02-21] MEDS: LEVALBUTEROL 1.25 MG/0.5 ML CONCENTRATE NEB NEB PRN (23:38)
[2022-02-22] VITALS (21 sets, daily range): BP systolic 107–140; BP diastolic 55–69; O2SAT 90–97
[2022-02-22] MEDS: TELMISARTAN 20 MG TAB PO SCH ×2 (00:23→20:36)
[2022-02-22] MEDS: LEVALBUTEROL 1.25 MG/0.5 ML CONCENTRATE NEB INH SCH ×4 (02:00→20:00)
[2022-02-22 03:54] LABS: HEMATOCRIT 40.4 % (36.0-47.0); HEMOGLOBIN 12.7 g/dl (12.0-15.5); MEAN CORPUSCULAR HEMOGLOBIN 30.2 pg (27.0-33.0); MEAN CORPUSCULAR HGB CONC 31.4 g/dl (32.0-36.5); MEAN CORPUSCULAR VOLUME 96.2 fl (80.0-96.0); PLATELET COUNT, AUTOMATED 254 10^3/uL (150-450); WHITE BLOOD COUNT 15.9 10^3/uL (4.0-10.0)
[2022-02-22 04:05] LABS: INR 1.01; PARTIAL THROMBOPLASTIN TIME 25.2 SECONDS (25.9-37.0); PROTHROMBIN TIME 13.7 SECONDS (12.7-14.5)
[2022-02-22] MEDS: methylPREDNISolone 125MG 2ML VIAL IV SCH ×3 (04:26→20:36)
[2022-02-22 04:32] LABS: CALCIUM LEVEL 9.3 MG/DL (8.8-10.2); CREATININE FOR GFR 1.2 MG/DL (0.55-1.30); GLOMERULAR FILTRATION RATE 47.1 (>39); MAGNESIUM LEVEL 2.1 MG/DL (1.8-2.4); POTASSIUM SERUM 4.7 MEQ/L (3.5-5.1)
[2022-02-22] MEDS: LEVALBUTEROL 1.25 MG/0.5 ML CONCENTRATE NEB NEB PRN (04:34)
[2022-02-22] MEDS: TIOTROPIUM INHALER/CAPSULE (SPIRIVA) INH SCH (07:04)
[2022-02-22] MEDS: ADVAIR HFA 230/21MCG INHALER INH SCH ×2 (07:04→20:04)
[2022-02-22] MEDS ORDERED: FUROSEMIDE 40 MG TAB PO ONE (08:30)
[2022-02-22] MEDS ORDERED: ENOXAPARIN 40MG/0.4ML SYRINGE (J1650 PER 10MG) SC SCH (09:00)
[2022-02-22] MEDS: amLODIPine 5 MG TAB PO SCH (09:00)
[2022-02-22] MEDS: PANTOPRAZOLE 40MG VIAL IV SCH (09:20)
[2022-02-22] MEDS: DOXYCYCLINE HYCLATE 100MG TABLET PO SCH ×2 (09:20→20:36)
[2022-02-22] MEDS: guaiFENesin 200 MG TAB PO SCH ×3 (09:22→20:36)
[2022-02-22] MEDS: ROSUVASTATIN 10 MG TAB (CRESTOR) PO SCH (20:36)
[2022-02-22] MEDS: ASPIRIN 81MG ENTERIC TABLET PO SCH (20:36)
[2022-02-23] VITALS (18 sets, daily range): BP systolic 102–153; BP diastolic 55–78; O2SAT 89–96
[2022-02-23] MEDS: LEVALBUTEROL 1.25 MG/0.5 ML CONCENTRATE NEB INH SCH ×4 (02:03→19:44)
[2022-02-23] MEDS: methylPREDNISolone 125MG 2ML VIAL IV SCH (03:59)
[2022-02-23 06:38] LABS: HEMATOCRIT 41.7 % (36.0-47.0); HEMOGLOBIN 13.1 g/dl (12.0-15.5); MEAN CORPUSCULAR HEMOGLOBIN 30.3 pg (27.0-33.0); MEAN CORPUSCULAR HGB CONC 31.4 g/dl (32.0-36.5); MEAN CORPUSCULAR VOLUME 96.5 fl (80.0-96.0); PLATELET COUNT, AUTOMATED 249 10^3/uL (150-450); RED BLOOD COUNT 4.32 10^6/uL (4.00-5.40); WHITE BLOOD COUNT 21.7 10^3/uL (4.0-10.0)
[2022-02-23 07:09] LABS: CALCIUM LEVEL 9.3 MG/DL (8.8-10.2); CREATININE FOR GFR 1.44 MG/DL (0.55-1.30); GLOMERULAR FILTRATION RATE 38.2 (>39); MAGNESIUM LEVEL 2.4 MG/DL (1.8-2.4); POTASSIUM SERUM 4.6 MEQ/L (3.5-5.1)
[2022-02-23] MEDS: TIOTROPIUM INHALER/CAPSULE (SPIRIVA) INH SCH (07:37)
[2022-02-23] MEDS: ADVAIR HFA 230/21MCG INHALER INH SCH ×2 (07:37→19:44)
[2022-02-23] MEDS: guaiFENesin 200 MG TAB PO SCH ×3 (08:23→20:36)
[2022-02-23] MEDS: PANTOPRAZOLE 40MG VIAL IV SCH (08:23)
[2022-02-23] MEDS: DOXYCYCLINE HYCLATE 100MG TABLET PO SCH ×2 (08:24→20:36)
[2022-02-23] MEDS: amLODIPine 5 MG TAB PO SCH (08:24)
[2022-02-23] MEDS ORDERED: GI COCKTAIL 50ML BTL(HYOSCYAMINE/MAALOX/LIDOCAINE VISCOUS)(1:3:1) PO PRN (16:30)
[2022-02-23] MEDS: ASPIRIN 81MG ENTERIC TABLET PO SCH (20:36)
[2022-02-23] MEDS: ROSUVASTATIN 10 MG TAB (CRESTOR) PO SCH (20:36)
[2022-02-24] VITALS (17 sets, daily range): BP systolic 102–146; BP diastolic 61–89; O2SAT 91–98
[2022-02-24] MEDS: LEVALBUTEROL 1.25 MG/0.5 ML CONCENTRATE NEB INH SCH ×6 (01:57→20:09)
[2022-02-24 06:57] LABS: HEMATOCRIT 39.4 % (36.0-47.0); HEMOGLOBIN 12.5 g/dl (12.0-15.5); MEAN CORPUSCULAR HEMOGLOBIN 30.3 pg (27.0-33.0); MEAN CORPUSCULAR HGB CONC 31.7 g/dl (32.0-36.5); MEAN CORPUSCULAR VOLUME 95.6 fl (80.0-96.0); PLATELET COUNT, AUTOMATED 211 10^3/uL (150-450); RED BLOOD COUNT 4.12 10^6/uL (4.00-5.40); WHITE BLOOD COUNT 17.9 10^3/uL (4.0-10.0)
[2022-02-24 07:32] LABS: CALCIUM LEVEL 8.8 MG/DL (8.8-10.2); CREATININE FOR GFR 1.4 MG/DL (0.55-1.30); GLOMERULAR FILTRATION RATE 39.5 (>39); MAGNESIUM LEVEL 2.3 MG/DL (1.8-2.4); POTASSIUM SERUM 4.5 MEQ/L (3.5-5.1)
[2022-02-24] MEDS: TIOTROPIUM INHALER/CAPSULE (SPIRIVA) INH SCH (08:00)
[2022-02-24] MEDS: ADVAIR HFA 230/21MCG INHALER INH SCH ×2 (08:08→20:09)
[2022-02-24] MEDS: guaiFENesin 200 MG TAB PO SCH ×3 (08:16→21:00)
[2022-02-24] MEDS: DOXYCYCLINE HYCLATE 100MG TABLET PO SCH ×2 (08:16→22:01)
[2022-02-24] MEDS: PANTOPRAZOLE 40MG TAB (PROTONIX) PO SCH (08:17)
[2022-02-24] MEDS: amLODIPine 5 MG TAB PO SCH (08:17)
[2022-02-24] MEDS ORDERED: DOXY-350 PO (08:22)
[2022-02-24] MEDS ORDERED: PRED10TA2 PO (08:22)
[2022-02-24] MEDS ORDERED: methylPREDNISolone 125MG 2ML VIAL IV ONE (09:00)
[2022-02-24] MEDS ORDERED: predniSONE 20 MG TAB PO SCH (09:00)
[2022-02-24] MEDS ORDERED: PILL CUTTER 1 EACH XX PRN (12:40)
[2022-02-24] MEDS ORDERED: SIMETHICONE 80MG CHEW TAB PO ONE (13:00)
[2022-02-24] MEDS: methylPREDNISolone 125MG 2ML VIAL IV SCH ×2 (14:54→22:02)
[2022-02-24] MEDS ORDERED: SIMETHICONE 80MG CHEW TAB PO PRN (16:00)
[2022-02-24] MEDS: ASPIRIN 81MG ENTERIC TABLET PO SCH (22:00)
[2022-02-24] MEDS: ROSUVASTATIN 10 MG TAB (CRESTOR) PO SCH (22:01)
[2022-02-25] VITALS (16 sets, daily range): BP systolic 107–160; BP diastolic 54–90; O2SAT 91–96
[2022-02-25] MEDS: LEVALBUTEROL 1.25 MG/0.5 ML CONCENTRATE NEB INH SCH ×7 (02:15→23:32)
[2022-02-25] MEDS: methylPREDNISolone 125MG 2ML VIAL IV SCH ×4 (03:51→21:49)
[2022-02-25 05:21] LABS: HEMATOCRIT 41.3 % (36.0-47.0); HEMOGLOBIN 13.3 g/dl (12.0-15.5); MEAN CORPUSCULAR HEMOGLOBIN 30.5 pg (27.0-33.0); MEAN CORPUSCULAR HGB CONC 32.2 g/dl (32.0-36.5); MEAN CORPUSCULAR VOLUME 94.7 fl (80.0-96.0); PLATELET COUNT, AUTOMATED 237 10^3/uL (150-450); RED BLOOD COUNT 4.36 10^6/uL (4.00-5.40); WHITE BLOOD COUNT 17.5 10^3/uL (4.0-10.0)
[2022-02-25 05:59] LABS: CALCIUM LEVEL 9.2 MG/DL (8.8-10.2); CREATININE FOR GFR 1.36 MG/DL (0.55-1.30); GLOMERULAR FILTRATION RATE 40.8 (>39); MAGNESIUM LEVEL 2.4 MG/DL (1.8-2.4); POTASSIUM SERUM 4.3 MEQ/L (3.5-5.1)
[2022-02-25] MEDS: ADVAIR HFA 230/21MCG INHALER INH SCH ×2 (07:56→19:11)
[2022-02-25] MEDS: TIOTROPIUM INHALER/CAPSULE (SPIRIVA) INH SCH ×2 (07:56→07:57)
[2022-02-25] MEDS: amLODIPine 5 MG TAB PO SCH (09:03)
[2022-02-25] MEDS: PANTOPRAZOLE 40MG TAB (PROTONIX) PO SCH (09:03)
[2022-02-25] MEDS: DOXYCYCLINE HYCLATE 100MG TABLET PO SCH ×2 (09:03→21:49)
[2022-02-25] MEDS ORDERED: LEVALBUTEROL 1.25 MG/0.5 ML CONCENTRATE NEB NEB ONE (09:05)
[2022-02-25] MEDS: guaiFENesin ER 600 MG TAB PO SCH ×2 (09:49→21:48)
[2022-02-25] MEDS: ROSUVASTATIN 10 MG TAB (CRESTOR) PO SCH (21:49)
[2022-02-25] MEDS: ASPIRIN 81MG ENTERIC TABLET PO SCH (21:49)
[2022-02-26] VITALS: BP 134/60
[2022-02-26] MEDS: LEVALBUTEROL 1.25 MG/0.5 ML CONCENTRATE NEB INH SCH ×6 (03:42→23:08)
[2022-02-26] MEDS: methylPREDNISolone 125MG 2ML VIAL IV SCH ×4 (03:42→21:17)
[2022-02-26 04:00] VITALS: BP 190/100
[2022-02-26] MEDS ORDERED: hydrALAZINE 20MG/ML 1ML VIAL (J0360 PER 20MG) IV PRN (04:45)
[2022-02-26 05:20] VITALS: BP 150/80
[2022-02-26 05:45] LABS: HEMATOCRIT 41.1 % (36.0-47.0); HEMOGLOBIN 13.3 g/dl (12.0-15.5); MEAN CORPUSCULAR HEMOGLOBIN 30.8 pg (27.0-33.0); MEAN CORPUSCULAR HGB CONC 32.4 g/dl (32.0-36.5); MEAN CORPUSCULAR VOLUME 95.1 fl (80.0-96.0); PLATELET COUNT, AUTOMATED 222 10^3/uL (150-450); RED BLOOD COUNT 4.32 10^6/uL (4.00-5.40); WHITE BLOOD COUNT 17.5 10^3/uL (4.0-10.0)
[2022-02-26 06:41] LABS: CALCIUM LEVEL 8.9 MG/DL (8.8-10.2); CREATININE FOR GFR 1.5 MG/DL (0.55-1.30); GLOMERULAR FILTRATION RATE 36.4 (>39); MAGNESIUM LEVEL 2.4 MG/DL (1.8-2.4)
[2022-02-26] MEDS: ADVAIR HFA 230/21MCG INHALER INH SCH ×2 (07:55→19:43)
[2022-02-26] MEDS: TIOTROPIUM INHALER/CAPSULE (SPIRIVA) INH SCH (07:55)
[2022-02-26 08:01] VITALS: BP 147/74
[2022-02-26] MEDS: guaiFENesin ER 600 MG TAB PO SCH ×2 (09:13→21:18)
[2022-02-26] MEDS: DOXYCYCLINE HYCLATE 100MG TABLET PO SCH (09:14)
[2022-02-26] MEDS: PANTOPRAZOLE 40MG TAB (PROTONIX) PO SCH (09:14)
[2022-02-26 09:15] VITALS: O2SAT 93
[2022-02-26] MEDS: GASTROGRAFIN SOLUTION 30ML PO SCH ×2 (10:43→11:21)
[2022-02-26] MEDS: ISOSORBIDE DIN (ISORDIL) 10MG TAB PO SCH ×2 (12:00→17:39)
[2022-02-26 20:00] VITALS: BP 122/58
[2022-02-26] MEDS: ASPIRIN 81MG ENTERIC TABLET PO SCH (21:17)
[2022-02-26] MEDS: ROSUVASTATIN 10 MG TAB (CRESTOR) PO SCH (21:18)
[2022-02-27] MEDS: LEVALBUTEROL 1.25 MG/0.5 ML CONCENTRATE NEB INH SCH ×6 (03:13→23:58)
[2022-02-27] MEDS: methylPREDNISolone 125MG 2ML VIAL IV SCH (03:19)
[2022-02-27 04:00] VITALS: BP 153/66
[2022-02-27 04:12] LABS: HEMATOCRIT 41.3 % (36.0-47.0); HEMOGLOBIN 13.2 g/dl (12.0-15.5); MEAN CORPUSCULAR HEMOGLOBIN 30.3 pg (27.0-33.0); MEAN CORPUSCULAR VOLUME 94.9 fl (80.0-96.0); PLATELET COUNT, AUTOMATED 224 10^3/uL (150-450); RED BLOOD COUNT 4.35 10^6/uL (4.00-5.40); WHITE BLOOD COUNT 18.1 10^3/uL (4.0-10.0)
[2022-02-27 04:48] LABS: CALCIUM LEVEL 8.9 MG/DL (8.8-10.2); CREATININE FOR GFR 2.04 MG/DL (0.55-1.30); GLOMERULAR FILTRATION RATE 25.6 (>39); MAGNESIUM LEVEL 2.5 MG/DL (1.8-2.4); POTASSIUM SERUM 4.5 MEQ/L (3.5-5.1)
[2022-02-27] MEDS: ISOSORBIDE DIN (ISORDIL) 10MG TAB PO SCH ×3 (06:01→16:34)
[2022-02-27 07:35] VITALS: BP 155/70
[2022-02-27] MEDS: TIOTROPIUM INHALER/CAPSULE (SPIRIVA) INH SCH ×2 (07:52→07:54)
[2022-02-27] MEDS: ADVAIR HFA 230/21MCG INHALER INH SCH ×2 (07:52→19:41)
[2022-02-27] MEDS: guaiFENesin ER 600 MG TAB PO SCH ×2 (08:59→20:27)
[2022-02-27] MEDS: PANTOPRAZOLE 40MG TAB (PROTONIX) PO SCH (09:00)
[2022-02-27] MEDS: predniSONE 20 MG TAB PO SCH ×3 (09:00→20:28)
[2022-02-27] MEDS ORDERED: ALBU2.5V10 NEB ×2 (09:20→10:02)
[2022-02-27] MEDS ORDERED: AMOX875T2 PO (10:02)
[2022-02-27] MEDS ORDERED: PRED10TA2 PO (10:02)
[2022-02-27] MEDS ORDERED: LASI40TA9 PO (11:51)
[2022-02-27] MEDS ORDERED: AMLO1TAB25 PO (12:15)
[2022-02-27] MEDS ORDERED: ISOS10TA3 PO (12:15)
[2022-02-27] MEDS ORDERED: NS 500 ML IV ONE (12:25)
[2022-02-27 13:44] LABS: CALCIUM LEVEL 9.2 MG/DL (8.8-10.2); CREATININE FOR GFR 2.1 MG/DL (0.55-1.30); GLOMERULAR FILTRATION RATE 24.7 (>39); POTASSIUM SERUM 3.9 MEQ/L (3.5-5.1)
[2022-02-27] MEDS ORDERED: NS 1,000 ML IV SCH (13:50)
[2022-02-27 20:00] VITALS: BP 131/57
[2022-02-27] MEDS: ROSUVASTATIN 10 MG TAB (CRESTOR) PO SCH (20:28)
[2022-02-27] MEDS: ASPIRIN 81MG ENTERIC TABLET PO SCH (20:28)
[2022-02-27] MEDS: LEVALBUTEROL 1.25 MG/0.5 ML CONCENTRATE NEB NEB PRN (22:10)
[2022-02-28] MEDS: LEVALBUTEROL 1.25 MG/0.5 ML CONCENTRATE NEB INH SCH ×6 (03:43→23:46)
[2022-02-28 04:00] VITALS: BP 128/69
[2022-02-28] MEDS: ISOSORBIDE DIN (ISORDIL) 10MG TAB PO SCH ×3 (06:21→16:17)
[2022-02-28 07:10] LABS: HEMATOCRIT 37.8 % (36.0-47.0); HEMOGLOBIN 12.3 g/dl (12.0-15.5); MEAN CORPUSCULAR HGB CONC 32.5 g/dl (32.0-36.5); MEAN CORPUSCULAR VOLUME 95.2 fl (80.0-96.0); PLATELET COUNT, AUTOMATED 171 10^3/uL (150-450); RED BLOOD COUNT 3.97 10^6/uL (4.00-5.40); WHITE BLOOD COUNT 18.1 10^3/uL (4.0-10.0)
[2022-02-28 07:41] LABS: CALCIUM LEVEL 8.3 MG/DL (8.8-10.2); CREATININE FOR GFR 2.31 MG/DL (0.55-1.30); GLOMERULAR FILTRATION RATE 22.1 (>39); MAGNESIUM LEVEL 2.3 MG/DL (1.8-2.4); POTASSIUM SERUM 4.2 MEQ/L (3.5-5.1)
[2022-02-28] MEDS ORDERED: NS 1,000 ML IV SCH (07:45)
[2022-02-28 08:00] VITALS: BP 135/70
[2022-02-28] MEDS: TIOTROPIUM INHALER/CAPSULE (SPIRIVA) INH SCH (08:00)
[2022-02-28] MEDS: ADVAIR HFA 230/21MCG INHALER INH SCH ×2 (08:27→19:48)
[2022-02-28] MEDS: PANTOPRAZOLE 40MG TAB (PROTONIX) PO SCH (08:46)
[2022-02-28] MEDS: predniSONE 20 MG TAB PO SCH ×3 (08:46→20:35)
[2022-02-28] MEDS: guaiFENesin ER 600 MG TAB PO SCH ×2 (08:46→20:35)
[2022-02-28 09:10] LABS: CK-MB VALUE MASS 11.3 NG/ML (<3.6); MB/CK RELATIVE INDEX 3.2 (< OR =4)
[2022-02-28 12:00] VITALS: BP 124/58
[2022-02-28 16:16] VITALS: BP 123/62
[2022-02-28 20:00] VITALS: BP 144/71
[2022-02-28] MEDS: ROSUVASTATIN 10 MG TAB (CRESTOR) PO SCH (20:35)
[2022-02-28] MEDS: ASPIRIN 81MG ENTERIC TABLET PO SCH (20:35)
[2022-03-01] MEDS: LEVALBUTEROL 1.25 MG/0.5 ML CONCENTRATE NEB INH SCH ×6 (03:19→19:21)
[2022-03-01 04:00] VITALS: BP 117/57
[2022-03-01] MEDS: ISOSORBIDE DIN (ISORDIL) 10MG TAB PO SCH ×3 (06:00→16:27)
[2022-03-01] MEDS: TIOTROPIUM INHALER/CAPSULE (SPIRIVA) INH SCH ×2 (07:41→07:43)
[2022-03-01] MEDS: ADVAIR HFA 230/21MCG INHALER INH SCH ×2 (07:42→19:21)
[2022-03-01 08:13] VITALS: BP 145/58
[2022-03-01 08:18] LABS: HEMATOCRIT 41.3 % (36.0-47.0); HEMOGLOBIN 13.6 g/dl (12.0-15.5); MEAN CORPUSCULAR HEMOGLOBIN 30.6 pg (27.0-33.0); MEAN CORPUSCULAR HGB CONC 32.9 g/dl (32.0-36.5); MEAN CORPUSCULAR VOLUME 92.8 fl (80.0-96.0); PLATELET COUNT, AUTOMATED 195 10^3/uL (150-450); RED BLOOD COUNT 4.45 10^6/uL (4.00-5.40); WHITE BLOOD COUNT 23.2 10^3/uL (4.0-10.0)
[2022-03-01] MEDS: predniSONE 20 MG TAB PO SCH ×3 (08:22→20:50)
[2022-03-01] MEDS: guaiFENesin ER 600 MG TAB PO SCH ×2 (08:22→20:50)
[2022-03-01] MEDS: PANTOPRAZOLE 40MG TAB (PROTONIX) PO SCH (08:23)
[2022-03-01 08:54] LABS: CALCIUM LEVEL 8.7 MG/DL (8.8-10.2); CREATININE FOR GFR 2.44 MG/DL (0.55-1.30); GLOMERULAR FILTRATION RATE 20.8 (>39); POTASSIUM SERUM 3.7 MEQ/L (3.5-5.1)
[2022-03-01] MEDS ORDERED: FUROSEMIDE 100MG/10ML VIAL (J1940) IV ONE (11:15)
[2022-03-01] MEDS: ACETAMINOPHEN TAB 650MG DOSE (2X325MG) PO PRN (11:44)
[2022-03-01 16:25] VITALS: BP 118/64
[2022-03-01 20:00] VITALS: BP 127/60
[2022-03-01] MEDS: ASPIRIN 81MG ENTERIC TABLET PO SCH (20:50)
[2022-03-01] MEDS: ROSUVASTATIN 10 MG TAB (CRESTOR) PO SCH (20:50)
[2022-03-01] MEDS ORDERED: LEVALBUTEROL 1.25 MG/0.5 ML CONCENTRATE NEB INH SCH (21:00)
[2022-03-02] MEDS: ACETAMINOPHEN TAB 650MG DOSE (2X325MG) PO PRN ×2 (02:24→12:35)
[2022-03-02 04:00] VITALS: BP 146/63
[2022-03-02 05:14] LABS: HEMATOCRIT 39.5 % (36.0-47.0); HEMOGLOBIN 12.9 g/dl (12.0-15.5); MEAN CORPUSCULAR HEMOGLOBIN 30.4 pg (27.0-33.0); MEAN CORPUSCULAR HGB CONC 32.7 g/dl (32.0-36.5); MEAN CORPUSCULAR VOLUME 92.9 fl (80.0-96.0); PLATELET COUNT, AUTOMATED 160 10^3/uL (150-450); RED BLOOD COUNT 4.25 10^6/uL (4.00-5.40); WHITE BLOOD COUNT 18.7 10^3/uL (4.0-10.0)
[2022-03-02 05:49] LABS: CALCIUM LEVEL 8.1 MG/DL (8.8-10.2); CREATININE FOR GFR 3.04 MG/DL (0.55-1.30); GLOMERULAR FILTRATION RATE 16.1 (>39); POTASSIUM SERUM 3.5 MEQ/L (3.5-5.1)
[2022-03-02 06:23] VITALS: BP 150/80
[2022-03-02] MEDS: ISOSORBIDE DIN (ISORDIL) 10MG TAB PO SCH ×3 (06:27→17:10)
[2022-03-02 08:00] VITALS: BP 125/66
[2022-03-02] MEDS: TIOTROPIUM INHALER/CAPSULE (SPIRIVA) INH SCH (08:00)
[2022-03-02] MEDS: LEVALBUTEROL 1.25 MG/0.5 ML CONCENTRATE NEB INH SCH (08:00)
[2022-03-02] MEDS: predniSONE 20 MG TAB PO SCH ×3 (08:55→20:30)
[2022-03-02] MEDS: PANTOPRAZOLE 40MG TAB (PROTONIX) PO SCH (08:56)
[2022-03-02] MEDS: guaiFENesin ER 600 MG TAB PO SCH ×2 (08:56→20:30)
[2022-03-02] MEDS ORDERED: amLODIPine 5 MG TAB PO SCH (09:00)
[2022-03-02] MEDS: ADVAIR HFA 230/21MCG INHALER INH SCH ×2 (09:05→20:15)
[2022-03-02] MEDS ORDERED: ALPRAZolam 0.25 MG TAB PO ONE (10:05)
[2022-03-02] MEDS ORDERED: POTASSIUM CHLORIDE 10MEQ SR TABLET PO ONE (10:10)
[2022-03-02 12:00] VITALS: BP 132/63
[2022-03-02 20:00] VITALS: BP 126/59
[2022-03-02] MEDS: ASPIRIN 81MG ENTERIC TABLET PO SCH (20:30)
[2022-03-02] MEDS: ROSUVASTATIN 10 MG TAB (CRESTOR) PO SCH (20:30)
[2022-03-02] MEDS: ALPRAZolam 0.25 MG TAB PO PRN (20:36)
[2022-03-03 04:44] VITALS: BP 123/57
[2022-03-03 05:03] LABS: HEMATOCRIT 40.5 % (36.0-47.0); HEMOGLOBIN 13.3 g/dl (12.0-15.5); MEAN CORPUSCULAR HEMOGLOBIN 30.6 pg (27.0-33.0); MEAN CORPUSCULAR HGB CONC 32.8 g/dl (32.0-36.5); MEAN CORPUSCULAR VOLUME 93.3 fl (80.0-96.0); PLATELET COUNT, AUTOMATED 176 10^3/uL (150-450); RED BLOOD COUNT 4.34 10^6/uL (4.00-5.40)
[2022-03-03 05:33] LABS: CALCIUM LEVEL 8.4 MG/DL (8.8-10.2); CREATININE FOR GFR 3.72 MG/DL (0.55-1.30); GLOMERULAR FILTRATION RATE 12.8 (>39); POTASSIUM SERUM 4.1 MEQ/L (3.5-5.1)
[2022-03-03] MEDS: ISOSORBIDE DIN (ISORDIL) 10MG TAB PO SCH ×3 (06:11→17:00)
[2022-03-03] MEDS: ADVAIR HFA 230/21MCG INHALER INH SCH ×2 (07:42→20:00)
[2022-03-03] MEDS: TIOTROPIUM INHALER/CAPSULE (SPIRIVA) INH SCH (07:43)
[2022-03-03] MEDS: guaiFENesin ER 600 MG TAB PO SCH ×2 (09:01→20:56)
[2022-03-03] MEDS: PANTOPRAZOLE 40MG TAB (PROTONIX) PO SCH (09:01)
[2022-03-03] MEDS: predniSONE 20 MG TAB PO SCH ×2 (09:01→20:56)
[2022-03-03] MEDS: ALPRAZolam 0.25 MG TAB PO PRN ×2 (09:03→20:56)
[2022-03-03] MEDS ORDERED: FUROSEMIDE 100MG/10ML VIAL (J1940) IV ONE (10:00)
[2022-03-03 14:00] VITALS: BP 116/65
[2022-03-03 14:30] LABS: CREATININE,RANDOM URINE < 13.0 MG/DL
[2022-03-03 20:46] VITALS: BP 129/60
[2022-03-03] MEDS: ROSUVASTATIN 10 MG TAB (CRESTOR) PO SCH (20:55)
[2022-03-03] MEDS: HEPARIN SOD (PORCINE) 5000UNITS/ML 1ML VIAL/SYRINGE SQ SCH (20:55)
[2022-03-03] MEDS: ASPIRIN 81MG ENTERIC TABLET PO SCH (20:56)
[2022-03-04 04:00] VITALS: BP 106/71
[2022-03-04 05:38] LABS: HEMATOCRIT 41.3 % (36.0-47.0); HEMOGLOBIN 13.8 g/dl (12.0-15.5); MEAN CORPUSCULAR HEMOGLOBIN 31.3 pg (27.0-33.0); MEAN CORPUSCULAR HGB CONC 33.4 g/dl (32.0-36.5); MEAN CORPUSCULAR VOLUME 93.7 fl (80.0-96.0); PLATELET COUNT, AUTOMATED 168 10^3/uL (150-450); RED BLOOD COUNT 4.41 10^6/uL (4.00-5.40); WHITE BLOOD COUNT 23.7 10^3/uL (4.0-10.0)
[2022-03-04] MEDS: HEPARIN SOD (PORCINE) 5000UNITS/ML 1ML VIAL/SYRINGE SQ SCH ×3 (05:40→21:23)
[2022-03-04 06:03] LABS: CALCIUM LEVEL 8.1 MG/DL (8.8-10.2); CREATININE FOR GFR 4.29 MG/DL (0.55-1.30); GLOMERULAR FILTRATION RATE 10.8 (>39)
[2022-03-04] MEDS: ADVAIR HFA 230/21MCG INHALER INH SCH ×2 (07:55→19:34)
[2022-03-04] MEDS: TIOTROPIUM INHALER/CAPSULE (SPIRIVA) INH SCH (07:55)
[2022-03-04 08:00] VITALS: BP 140/67
[2022-03-04 08:30] LABS: ALBUMIN 3.4 GM/DL (3.2-5.2); BILIRUBIN,DIRECT 0.2 MG/DL (0.0-0.2); BILIRUBIN,TOTAL 0.7 MG/DL (0.2-1.0); TOTAL PROTEIN 5.6 GM/DL (6.4-8.2)
[2022-03-04] MEDS: PANTOPRAZOLE 40MG TAB (PROTONIX) PO SCH (09:23)
[2022-03-04] MEDS: predniSONE 20 MG TAB PO SCH ×2 (09:23→20:36)
[2022-03-04] MEDS: guaiFENesin ER 600 MG TAB PO SCH ×2 (09:24→20:36)
[2022-03-04] MEDS: ISOSORBIDE DIN (ISORDIL) 10MG TAB PO SCH ×3 (09:24→16:30)
[2022-03-04] MEDS: ALPRAZolam 0.25 MG TAB PO PRN ×2 (09:35→21:24)
[2022-03-04 12:02] VITALS: BP 132/70
[2022-03-04 12:26] VITALS: BP 137/64
[2022-03-04 16:27] VITALS: BP 114/69
[2022-03-04 20:00] VITALS: BP 128/59
[2022-03-04] MEDS: ASPIRIN 81MG ENTERIC TABLET PO SCH (20:36)
[2022-03-04] MEDS: ROSUVASTATIN 10 MG TAB (CRESTOR) PO SCH (20:36)
[2022-03-05] VITALS (7 sets, daily range): BP systolic 114–163; BP diastolic 63–82
[2022-03-05 06:09] LABS: HEMATOCRIT 40.3 % (36.0-47.0); HEMOGLOBIN 13.6 g/dl (12.0-15.5); MEAN CORPUSCULAR HEMOGLOBIN 30.3 pg (27.0-33.0); MEAN CORPUSCULAR HGB CONC 33.7 g/dl (32.0-36.5); MEAN CORPUSCULAR VOLUME 89.8 fl (80.0-96.0); PLATELET COUNT, AUTOMATED 171 10^3/uL (150-450); RED BLOOD COUNT 4.49 10^6/uL (4.00-5.40); WHITE BLOOD COUNT 23.5 10^3/uL (4.0-10.0)
[2022-03-05] MEDS: HEPARIN SOD (PORCINE) 5000UNITS/ML 1ML VIAL/SYRINGE SQ SCH ×3 (06:37→21:28)
[2022-03-05] MEDS: ISOSORBIDE DIN (ISORDIL) 10MG TAB PO SCH ×3 (06:37→17:08)
[2022-03-05 07:28] LABS: CALCIUM LEVEL 8.3 MG/DL (8.8-10.2); CREATININE FOR GFR 4.37 MG/DL (0.55-1.30); GLOMERULAR FILTRATION RATE 10.6 (>39); POTASSIUM SERUM 4.1 MEQ/L (3.5-5.1)
[2022-03-05] MEDS: ADVAIR HFA 230/21MCG INHALER INH SCH ×2 (07:59→19:36)
[2022-03-05] MEDS: TIOTROPIUM INHALER/CAPSULE (SPIRIVA) INH SCH ×2 (07:59→08:00)
[2022-03-05] MEDS: guaiFENesin ER 600 MG TAB PO SCH ×2 (08:26→21:29)
[2022-03-05] MEDS: predniSONE 20 MG TAB PO SCH (08:26)
[2022-03-05] MEDS: PANTOPRAZOLE 40MG TAB (PROTONIX) PO SCH (08:26)
[2022-03-05] MEDS: ROSUVASTATIN 10 MG TAB (CRESTOR) PO SCH (21:28)
[2022-03-05] MEDS: ASPIRIN 81MG ENTERIC TABLET PO SCH (21:28)
[2022-03-05] MEDS: ALPRAZolam 0.25 MG TAB PO PRN (21:41)
[2022-03-06 04:00] VITALS: BP 132/66
[2022-03-06] MEDS: ONDANSETRON 4MG 2ML VIAL IV PRN (05:40)
[2022-03-06 06:39] VITALS: BP_SYST 100; BP_SYST 148; BP_DIAS 62; BP_DIAS 84
[2022-03-06] MEDS: ISOSORBIDE DIN (ISORDIL) 10MG TAB PO SCH ×3 (06:47→16:46)
[2022-03-06] MEDS: HEPARIN SOD (PORCINE) 5000UNITS/ML 1ML VIAL/SYRINGE SQ SCH ×3 (06:47→20:28)
[2022-03-06 08:00] VITALS: BP 111/55
[2022-03-06] MEDS: ADVAIR HFA 230/21MCG INHALER INH SCH ×2 (08:00→19:49)
[2022-03-06] MEDS: TIOTROPIUM INHALER/CAPSULE (SPIRIVA) INH SCH (08:00)
[2022-03-06] MEDS: PANTOPRAZOLE 40MG TAB (PROTONIX) PO SCH (08:05)
[2022-03-06] MEDS: guaiFENesin ER 600 MG TAB PO SCH ×2 (08:05→20:28)
[2022-03-06] MEDS: predniSONE 20 MG TAB PO SCH (08:05)
[2022-03-06 08:49] LABS: HEMATOCRIT 38.2 % (36.0-47.0); HEMOGLOBIN 12.7 g/dl (12.0-15.5); MEAN CORPUSCULAR HEMOGLOBIN 30.5 pg (27.0-33.0); MEAN CORPUSCULAR HGB CONC 33.2 g/dl (32.0-36.5); MEAN CORPUSCULAR VOLUME 91.6 fl (80.0-96.0); PLATELET COUNT, AUTOMATED 148 10^3/uL (150-450); RED BLOOD COUNT 4.17 10^6/uL (4.00-5.40); WHITE BLOOD COUNT 25.3 10^3/uL (4.0-10.0)
[2022-03-06 09:36] LABS: ALBUMIN 3.3 GM/DL (3.2-5.2); BILIRUBIN,TOTAL 0.7 MG/DL (0.2-1.0); CALCIUM LEVEL 8.3 MG/DL (8.8-10.2); CREATININE FOR GFR 4.16 MG/DL (0.55-1.30); GLOMERULAR FILTRATION RATE 11.2 (>39); POTASSIUM SERUM 3.8 MEQ/L (3.5-5.1); TOTAL PROTEIN 5.2 GM/DL (6.4-8.2)
[2022-03-06 12:00] VITALS: BP 118/58
[2022-03-06 16:00] VITALS: BP 159/70
[2022-03-06 16:08] LABS: ANTINUCLEAR ANTIBODIES DIRECT Negative (Negative); COMPLEMENT TOTAL (CH50) 59 U/mL (>41)
[2022-03-06 20:00] VITALS: BP 113/78
[2022-03-06] MEDS: ROSUVASTATIN 10 MG TAB (CRESTOR) PO SCH (20:27)
[2022-03-06] MEDS: ASPIRIN 81MG ENTERIC TABLET PO SCH (20:28)
[2022-03-06] MEDS: ALPRAZolam 0.25 MG TAB PO PRN (23:41)
[2022-03-07 04:00] VITALS: BP 144/76
[2022-03-07] MEDS: HEPARIN SOD (PORCINE) 5000UNITS/ML 1ML VIAL/SYRINGE SQ SCH ×3 (06:07→22:08)
[2022-03-07] MEDS: ISOSORBIDE DIN (ISORDIL) 10MG TAB PO SCH ×3 (06:07→17:44)
[2022-03-07 07:06] LABS: HEMATOCRIT 36.1 % (36.0-47.0); HEMOGLOBIN 12.3 g/dl (12.0-15.5); MEAN CORPUSCULAR HEMOGLOBIN 30.8 pg (27.0-33.0); MEAN CORPUSCULAR HGB CONC 34.1 g/dl (32.0-36.5); MEAN CORPUSCULAR VOLUME 90.5 fl (80.0-96.0); PLATELET COUNT, AUTOMATED 129 10^3/uL (150-450); RED BLOOD COUNT 3.99 10^6/uL (4.00-5.40); WHITE BLOOD COUNT 22.9 10^3/uL (4.0-10.0)
[2022-03-07 07:49] LABS: BILIRUBIN,TOTAL 0.7 MG/DL (0.2-1.0); CALCIUM LEVEL 8.4 MG/DL (8.8-10.2); CREATININE FOR GFR 4.09 MG/DL (0.55-1.30); GLOMERULAR FILTRATION RATE 11.5 (>39); TOTAL PROTEIN 4.9 GM/DL (6.4-8.2)
[2022-03-07] MEDS: ADVAIR HFA 230/21MCG INHALER INH SCH ×2 (07:54→20:00)
[2022-03-07] MEDS: TIOTROPIUM INHALER/CAPSULE (SPIRIVA) INH SCH (07:54)
[2022-03-07 08:00] VITALS: BP 147/79
[2022-03-07] MEDS: PANTOPRAZOLE 40MG TAB (PROTONIX) PO SCH (08:47)
[2022-03-07] MEDS: guaiFENesin ER 600 MG TAB PO SCH ×2 (08:47→20:25)
[2022-03-07] MEDS: predniSONE 20 MG TAB PO SCH (08:47)
[2022-03-07 12:00] VITALS: BP 177/83
[2022-03-07 16:00] VITALS: BP 145/88
[2022-03-07] MEDS ORDERED: FUROSEMIDE injection 250 MG in D5W 225 ML IV SCH (16:00)
[2022-03-07 20:00] VITALS: BP 133/99
[2022-03-07] MEDS: ASPIRIN 81MG ENTERIC TABLET PO SCH (20:25)
[2022-03-07] MEDS: ROSUVASTATIN 10 MG TAB (CRESTOR) PO SCH (20:26)
[2022-03-07] MEDS: diphenhydrAMINE CREAM 30GM TOP PRN (22:11)
[2022-03-08 00:20] VITALS: BP 162/94
[2022-03-08] MEDS: ONDANSETRON 4MG 2ML VIAL IV PRN (02:57)
[2022-03-08 03:40] LABS: HEMATOCRIT 39.5 % (36.0-47.0); HEMOGLOBIN 13.2 g/dl (12.0-15.5); MEAN CORPUSCULAR HEMOGLOBIN 30.3 pg (27.0-33.0); MEAN CORPUSCULAR HGB CONC 33.4 g/dl (32.0-36.5); MEAN CORPUSCULAR VOLUME 90.8 fl (80.0-96.0); PLATELET COUNT, AUTOMATED 144 10^3/uL (150-450); RED BLOOD COUNT 4.35 10^6/uL (4.00-5.40); WHITE BLOOD COUNT 22.8 10^3/uL (4.0-10.0)
[2022-03-08 04:40] LABS: ALBUMIN 3.4 GM/DL (3.2-5.2); BILIRUBIN,TOTAL 0.8 MG/DL (0.2-1.0); CALCIUM LEVEL 8.7 MG/DL (8.8-10.2); CREATININE FOR GFR 4.34 MG/DL (0.55-1.30); GLOMERULAR FILTRATION RATE 10.7 (>39); MAGNESIUM LEVEL 2.5 MG/DL (1.8-2.4); PHOSPHORUS LEVEL 5.1 MG/DL (2.5-4.9); POTASSIUM SERUM 4.1 MEQ/L (3.5-5.1); TOTAL PROTEIN 5.6 GM/DL (6.4-8.2)
[2022-03-08] MEDS: HEPARIN SOD (PORCINE) 5000UNITS/ML 1ML VIAL/SYRINGE SQ SCH ×3 (04:58→21:35)
[2022-03-08 06:00] VITALS: BP 153/86
[2022-03-08] MEDS: ISOSORBIDE DIN (ISORDIL) 10MG TAB PO SCH ×3 (06:32→16:31)
[2022-03-08] MEDS: ADVAIR HFA 230/21MCG INHALER INH SCH ×2 (07:46→19:38)
[2022-03-08] MEDS: TIOTROPIUM INHALER/CAPSULE (SPIRIVA) INH SCH (07:46)
[2022-03-08] MEDS: PANTOPRAZOLE 40MG TAB (PROTONIX) PO SCH (08:54)
[2022-03-08] MEDS: guaiFENesin ER 600 MG TAB PO SCH ×2 (08:54→21:34)
[2022-03-08] MEDS: predniSONE 20 MG TAB PO SCH (08:54)
[2022-03-08 14:00] VITALS: BP 110/64
[2022-03-08 16:26] VITALS: BP 110/64
[2022-03-08] MEDS: ALPRAZolam 0.25 MG TAB PO PRN (21:34)
[2022-03-08] MEDS: ASPIRIN 81MG ENTERIC TABLET PO SCH (21:34)
[2022-03-08] MEDS: ACETAMINOPHEN TAB 650MG DOSE (2X325MG) PO PRN (21:34)
[2022-03-08] MEDS: ROSUVASTATIN 10 MG TAB (CRESTOR) PO SCH (21:35)
[2022-03-08] MEDS: diphenhydrAMINE CREAM 30GM TOP PRN (21:36)
[2022-03-09] MEDS: HEPARIN SOD (PORCINE) 5000UNITS/ML 1ML VIAL/SYRINGE SQ SCH ×3 (05:26→21:49)
[2022-03-09 06:43] LABS: HEMATOCRIT 37.7 % (36.0-47.0); HEMOGLOBIN 12.5 g/dl (12.0-15.5); MEAN CORPUSCULAR HGB CONC 33.2 g/dl (32.0-36.5); MEAN CORPUSCULAR VOLUME 90.4 fl (80.0-96.0); PLATELET COUNT, AUTOMATED 125 10^3/uL (150-450); RED BLOOD COUNT 4.17 10^6/uL (4.00-5.40); WHITE BLOOD COUNT 19.8 10^3/uL (4.0-10.0)
[2022-03-09] MEDS: ISOSORBIDE DIN (ISORDIL) 10MG TAB PO SCH ×3 (07:00→17:00)
[2022-03-09 07:02] VITALS: BP 126/73
[2022-03-09 07:37] LABS: ALBUMIN 3.1 GM/DL (3.2-5.2); ALT/SGPT 184 U/L (12-78); BILIRUBIN,TOTAL 0.8 MG/DL (0.2-1.0); BLOOD UREA NITROGEN 97 MG/DL (7-18); CALCIUM LEVEL 8.7 MG/DL (8.8-10.2); CARBON DIOXIDE LEVEL 30 MEQ/L (21-32); CHLORIDE LEVEL 97 MEQ/L (98-107); CREATININE FOR GFR 4.64 MG/DL (0.55-1.30); GLOMERULAR FILTRATION RATE 9.9 (>39); GLUCOSE, FASTING 80 MG/DL (70-100); POTASSIUM SERUM 3.4 MEQ/L (3.5-5.1); SODIUM LEVEL 133 MEQ/L (136-145); TOTAL PROTEIN 5.2 GM/DL (6.4-8.2)
[2022-03-09] MEDS: TIOTROPIUM INHALER/CAPSULE (SPIRIVA) INH SCH (07:55)
[2022-03-09] MEDS: ADVAIR HFA 230/21MCG INHALER INH SCH ×2 (07:55→20:20)
[2022-03-09] MEDS ORDERED: POTASSIUM CHLORIDE 10MEQ SR TABLET PO ONE (08:15)
[2022-03-09 09:54] LABS: HEPATITIS B SURFACE ANTIGEN NEGATIVE (NEGATIVE)
[2022-03-09 10:19] LABS: HEPATITIS B CORE ANTIBODY IGM NEGATIVE (NEGATIVE); HEPATITIS C VIRUS ABY INDEX < 0.0 INDEX (<0.8)
[2022-03-09] MEDS: PANTOPRAZOLE 40MG TAB (PROTONIX) PO SCH (10:22)
[2022-03-09] MEDS: guaiFENesin ER 600 MG TAB PO SCH ×2 (10:22→20:06)
[2022-03-09 14:00] VITALS: BP 123/84
[2022-03-09] MEDS: ROSUVASTATIN 10 MG TAB (CRESTOR) PO SCH (20:06)
[2022-03-09] MEDS: ACETAMINOPHEN TAB 650MG DOSE (2X325MG) PO PRN (20:06)
[2022-03-09] MEDS: ASPIRIN 81MG ENTERIC TABLET PO SCH (20:06)
[2022-03-09 20:13] VITALS: BP 100/65
[2022-03-10] MEDS: HEPARIN SOD (PORCINE) 5000UNITS/ML 1ML VIAL/SYRINGE SQ SCH ×3 (05:34→20:17)
[2022-03-10 06:02] VITALS: BP 106/67
[2022-03-10 06:23] LABS: HEMATOCRIT 37.6 % (36.0-47.0); HEMOGLOBIN 12.7 g/dl (12.0-15.5); MEAN CORPUSCULAR HEMOGLOBIN 30.8 pg (27.0-33.0); MEAN CORPUSCULAR HGB CONC 33.8 g/dl (32.0-36.5); PLATELET COUNT, AUTOMATED 108 10^3/uL (150-450); RED BLOOD COUNT 4.13 10^6/uL (4.00-5.40); WHITE BLOOD COUNT 16.7 10^3/uL (4.0-10.0)
[2022-03-10] MEDS: ISOSORBIDE DIN (ISORDIL) 10MG TAB PO SCH ×3 (06:29→17:00)
[2022-03-10 07:04] LABS: ALBUMIN 3.1 GM/DL (3.2-5.2); BILIRUBIN,TOTAL 0.7 MG/DL (0.2-1.0); CALCIUM LEVEL 8.7 MG/DL (8.8-10.2); CREATININE FOR GFR 4.32 MG/DL (0.55-1.30); GLOMERULAR FILTRATION RATE 10.8 (>39); POTASSIUM SERUM 3.6 MEQ/L (3.5-5.1); TOTAL PROTEIN 5.3 GM/DL (6.4-8.2)
[2022-03-10] MEDS: ADVAIR HFA 230/21MCG INHALER INH SCH ×2 (07:26→19:48)
[2022-03-10] MEDS: TIOTROPIUM INHALER/CAPSULE (SPIRIVA) INH SCH (07:26)
[2022-03-10] MEDS: PANTOPRAZOLE 40MG TAB (PROTONIX) PO SCH (08:42)
[2022-03-10] MEDS: guaiFENesin ER 600 MG TAB PO SCH ×2 (08:42→20:22)
[2022-03-10] MEDS: ONDANSETRON 4MG 2ML VIAL IV PRN ×2 (08:42→23:18)
[2022-03-10] MEDS: ACETAMINOPHEN TAB 650MG DOSE (2X325MG) PO PRN ×2 (08:44→20:23)
[2022-03-10] MEDS ORDERED: POTASSIUM CHLORIDE 10MEQ SR TABLET PO ONE (11:40)
[2022-03-10 14:00] VITALS: BP 93/64
[2022-03-10] MEDS: ASPIRIN 81MG ENTERIC TABLET PO SCH (20:22)
[2022-03-10] MEDS: ALPRAZolam 0.25 MG TAB PO PRN (20:22)
[2022-03-10] MEDS: ROSUVASTATIN 10 MG TAB (CRESTOR) PO SCH (20:23)
[2022-03-10 22:00] VITALS: BP 100/66
[2022-03-11] VITALS (7 sets, daily range): BP systolic 84–125; BP diastolic 60–72
[2022-03-11] MEDS: HEPARIN SOD (PORCINE) 5000UNITS/ML 1ML VIAL/SYRINGE SQ SCH ×2 (05:44→08:18)
[2022-03-11] MEDS: ISOSORBIDE DIN (ISORDIL) 10MG TAB PO SCH ×3 (06:12→17:00)
[2022-03-11 07:08] LABS: HEMATOCRIT 34.7 % (36.0-47.0); HEMOGLOBIN 11.6 g/dl (12.0-15.5); MEAN CORPUSCULAR HEMOGLOBIN 30.5 pg (27.0-33.0); MEAN CORPUSCULAR HGB CONC 33.4 g/dl (32.0-36.5); MEAN CORPUSCULAR VOLUME 91.3 fl (80.0-96.0); WHITE BLOOD COUNT 15.8 10^3/uL (4.0-10.0)
[2022-03-11 07:31] LABS: ALBUMIN 2.7 GM/DL (3.2-5.2); BILIRUBIN,TOTAL 0.7 MG/DL (0.2-1.0); CALCIUM LEVEL 8.4 MG/DL (8.8-10.2); CREATININE FOR GFR 4.04 MG/DL (0.55-1.30); GLOMERULAR FILTRATION RATE 11.6 (>39); POTASSIUM SERUM 3.7 MEQ/L (3.5-5.1); TOTAL PROTEIN 4.7 GM/DL (6.4-8.2)
[2022-03-11] MEDS: TIOTROPIUM INHALER/CAPSULE (SPIRIVA) INH SCH (07:32)
[2022-03-11] MEDS: ADVAIR HFA 230/21MCG INHALER INH SCH ×2 (07:32→19:30)
[2022-03-11 07:35] LABS: PLATELET COUNT, AUTOMATED 79 10^3/uL (150-450)
[2022-03-11] MEDS: PANTOPRAZOLE 40MG TAB (PROTONIX) PO SCH (09:15)
[2022-03-11] MEDS: guaiFENesin ER 600 MG TAB PO SCH ×2 (09:15→21:04)
[2022-03-11] MEDS: ASPIRIN 81MG ENTERIC TABLET PO SCH (21:04)
[2022-03-11] MEDS: ROSUVASTATIN 10 MG TAB (CRESTOR) PO SCH (21:04)
[2022-03-11] MEDS: ACETAMINOPHEN TAB 650MG DOSE (2X325MG) PO PRN (23:46)
[2022-03-12 05:28] VITALS: BP 103/63
[2022-03-12 06:13] LABS: HEMATOCRIT 31.9 % (36.0-47.0); HEMOGLOBIN 10.8 g/dl (12.0-15.5); MEAN CORPUSCULAR HGB CONC 33.9 g/dl (32.0-36.5); MEAN CORPUSCULAR VOLUME 91.7 fl (80.0-96.0); RED BLOOD COUNT 3.48 10^6/uL (4.00-5.40); WHITE BLOOD COUNT 13.9 10^3/uL (4.0-10.0)
[2022-03-12 06:16] LABS: PLATELET COUNT, AUTOMATED 69 10^3/uL (150-450)
[2022-03-12 06:51] LABS: ALBUMIN 2.3 GM/DL (3.2-5.2); BILIRUBIN,TOTAL 0.6 MG/DL (0.2-1.0); CREATININE FOR GFR 3.71 MG/DL (0.55-1.30); GLOMERULAR FILTRATION RATE 12.8 (>39); MAGNESIUM LEVEL 1.9 MG/DL (1.8-2.4); POTASSIUM SERUM 3.5 MEQ/L (3.5-5.1); TOTAL PROTEIN 4.2 GM/DL (6.4-8.2)
[2022-03-12] MEDS: ADVAIR HFA 230/21MCG INHALER INH SCH ×2 (07:18→20:42)
[2022-03-12] MEDS: TIOTROPIUM INHALER/CAPSULE (SPIRIVA) INH SCH (07:19)
[2022-03-12 08:00] VITALS: BP 108/66
[2022-03-12] MEDS: PANTOPRAZOLE 40MG TAB (PROTONIX) PO SCH (10:00)
[2022-03-12] MEDS: guaiFENesin ER 600 MG TAB PO SCH ×2 (10:00→21:11)
[2022-03-12] MEDS: ALPRAZolam 0.25 MG TAB PO PRN ×2 (10:00→21:11)
[2022-03-12 12:43] LABS: HEMATOCRIT 33.5 % (36.0-47.0); HEMOGLOBIN 11.3 g/dl (12.0-15.5)
[2022-03-12] MEDS ORDERED: POTASSIUM CHLORIDE 10MEQ SR TABLET PO ONE (12:50)
[2022-03-12] MEDS: HEPARIN SOD (PORCINE) 5000UNITS/ML 1ML VIAL/SYRINGE SQ SCH (14:00)
[2022-03-12 14:30] VITALS: BP 92/58
[2022-03-12 16:40] VITALS: BP 106/62
[2022-03-12] MEDS: ROSUVASTATIN 10 MG TAB (CRESTOR) PO SCH (21:10)
[2022-03-12] MEDS: ASPIRIN 81MG ENTERIC TABLET PO SCH (21:11)
[2022-03-12] MEDS: ACETAMINOPHEN TAB 650MG DOSE (2X325MG) PO PRN (21:19)
[2022-03-12 22:00] VITALS: BP 121/68
[2022-03-13 05:38] LABS: HEMATOCRIT 33.5 % (36.0-47.0); HEMOGLOBIN 10.8 g/dl (12.0-15.5); MEAN CORPUSCULAR HEMOGLOBIN 29.9 pg (27.0-33.0); MEAN CORPUSCULAR HGB CONC 32.2 g/dl (32.0-36.5); MEAN CORPUSCULAR VOLUME 92.8 fl (80.0-96.0); PLATELET COUNT, AUTOMATED 72 10^3/uL (150-450); RED BLOOD COUNT 3.61 10^6/uL (4.00-5.40); WHITE BLOOD COUNT 12.1 10^3/uL (4.0-10.0)
[2022-03-13 06:00] VITALS: BP 123/67
[2022-03-13 06:14] LABS: ALBUMIN 2.4 GM/DL (3.2-5.2); BILIRUBIN,TOTAL 0.7 MG/DL (0.2-1.0); CREATININE FOR GFR 3.38 MG/DL (0.55-1.30); GLOMERULAR FILTRATION RATE 14.3 (>39); MAGNESIUM LEVEL 1.8 MG/DL (1.8-2.4); POTASSIUM SERUM 3.5 MEQ/L (3.5-5.1); TOTAL PROTEIN 4.4 GM/DL (6.4-8.2)
[2022-03-13] MEDS: ADVAIR HFA 230/21MCG INHALER INH SCH ×2 (07:24→20:24)
[2022-03-13] MEDS: TIOTROPIUM INHALER/CAPSULE (SPIRIVA) INH SCH (07:24)
[2022-03-13] MEDS: guaiFENesin ER 600 MG TAB PO SCH ×2 (08:35→21:12)
[2022-03-13] MEDS: ALPRAZolam 0.25 MG TAB PO PRN ×2 (08:37→21:43)
[2022-03-13] MEDS: ACETAMINOPHEN TAB 650MG DOSE (2X325MG) PO PRN ×2 (08:37→21:23)
[2022-03-13] MEDS: FUROSEMIDE 20 MG TAB PO SCH ×2 (12:51→17:06)
[2022-03-13] MEDS: POTASSIUM CHLORIDE 10MEQ SR TABLET PO SCH ×2 (12:52→21:12)
[2022-03-13 13:25] LABS: HEMATOCRIT 33.5 % (36.0-47.0); HEMOGLOBIN 11.1 g/dl (12.0-15.5); MEAN CORPUSCULAR HEMOGLOBIN 30.4 pg (27.0-33.0); MEAN CORPUSCULAR HGB CONC 33.1 g/dl (32.0-36.5); MEAN CORPUSCULAR VOLUME 91.8 fl (80.0-96.0); RED BLOOD COUNT 3.65 10^6/uL (4.00-5.40); WHITE BLOOD COUNT 12.6 10^3/uL (4.0-10.0)
[2022-03-13 13:28] LABS: PLATELET COUNT, AUTOMATED 68 10^3/uL (150-450)
[2022-03-13 14:00] VITALS: BP 100/52
[2022-03-13 20:00] VITALS: BP 130/75
[2022-03-13] MEDS: ROSUVASTATIN 10 MG TAB (CRESTOR) PO SCH (21:12)
[2022-03-13] MEDS: ASPIRIN 81MG ENTERIC TABLET PO SCH (21:14)
[2022-03-13] MEDS: ONDANSETRON 4MG 2ML VIAL IV PRN (21:41)
[2022-03-14 06:00] VITALS: BP 123/76
[2022-03-14 06:59] LABS: HEMATOCRIT 33.5 % (36.0-47.0); HEMOGLOBIN 11.2 g/dl (12.0-15.5); MEAN CORPUSCULAR HEMOGLOBIN 30.9 pg (27.0-33.0); MEAN CORPUSCULAR HGB CONC 33.4 g/dl (32.0-36.5); MEAN CORPUSCULAR VOLUME 92.5 fl (80.0-96.0); RED BLOOD COUNT 3.62 10^6/uL (4.00-5.40); WHITE BLOOD COUNT 12.5 10^3/uL (4.0-10.0)
[2022-03-14 07:00] LABS: PLATELET COUNT, AUTOMATED 79 10^3/uL (150-450)
[2022-03-14 07:41] LABS: ALBUMIN 2.4 GM/DL (3.2-5.2); BILIRUBIN,TOTAL 0.7 MG/DL (0.2-1.0); CALCIUM LEVEL 8.2 MG/DL (8.8-10.2); CREATININE FOR GFR 3.21 MG/DL (0.55-1.30); GLOMERULAR FILTRATION RATE 15.1 (>39); MAGNESIUM LEVEL 1.6 MG/DL (1.8-2.4); POTASSIUM SERUM 3.7 MEQ/L (3.5-5.1); TOTAL PROTEIN 4.8 GM/DL (6.4-8.2)
[2022-03-14] MEDS: TIOTROPIUM INHALER/CAPSULE (SPIRIVA) INH SCH (07:41)
[2022-03-14] MEDS: ADVAIR HFA 230/21MCG INHALER INH SCH (07:41)
[2022-03-14] MEDS ORDERED: MAGNESIUM OXIDE 400MG TAB (MAG-OX) PO ONE (08:00)
[2022-03-14] MEDS: guaiFENesin ER 600 MG TAB PO SCH (08:10)
[2022-03-14] MEDS: POTASSIUM CHLORIDE 10MEQ SR TABLET PO SCH (08:10)
[2022-03-14] MEDS: FUROSEMIDE 20 MG TAB PO SCH (08:10)
[2022-03-14] MEDS: ALPRAZolam 0.25 MG TAB PO PRN (08:16)
[2022-03-14] MEDS ORDERED: POTA-136 PO (12:10)
[2022-03-14] MEDS ORDERED: FURO20TA2 PO (12:10)
[2022-03-14] MEDS ORDERED: PRED20TA PO (12:41)
[2022-03-14] MEDS ORDERED: IPRA0.00 INH (12:41)
[2022-03-14] MEDS ORDERED: ALBU2.5V10 INH (12:41)
[2022-03-14] MEDS ORDERED: ALBU8.5H INH (12:41)
[2022-03-14] MEDS ORDERED: DOXY100T PO (12:41)
== END 2022-03-14 15:20 | disposition home health service (06) | DRG 190 ==
LOC: M ED 15:47 → M ED INP 19:33 → ENRESERV 20:17 → M PCU 22:21 → M MSPAV 03-08 00:21
PROVIDERS: ADMIT Family Medicine; ATTEND Family Medicine
DX: J44.1 Chronic obstructive pulmonary disease with (acute) exacerbation (principal); J96.21 Acute and chronic respiratory failure with hypoxia; N17.9 Acute kidney failure, unspecified; I13.0 Hypertensive heart and chronic kidney disease with heart failure and stage 1 through stage 4 chronic kidney disease, or unspecified chronic kidney disease; E87.2 Acidosis; E87.1 Hypo-osmolality and hyponatremia; D61.818 Other pancytopenia; I50.32 Chronic diastolic (congestive) heart failure; E78.5 Hyperlipidemia, unspecified; R19.7 Diarrhea, unspecified; Z99.81 Dependence on supplemental oxygen; R14.0 Abdominal distension (gaseous); N18.30 Chronic kidney disease, stage 3 unspecified; R74.01 Elevation of levels of liver transaminase levels; E87.6 Hypokalemia; Z79.82 Long term (current) use of aspirin; Z79.899 Other long term (current) drug therapy; D72.829 Elevated white blood cell count, unspecified; F41.9 Anxiety disorder, unspecified

== ENCOUNTER 2022-03-18 12:52 | Emergency (ER) | payer MEDICARE, OTHER ==
[~2022-03-18] VITALS: Ht 157.5 cm; Wt 75.5 kg
[~2022-03-18 12:52] MED LIST changes: +ALBU2.5V10 NEB; +ALBU8.5H INH; +AMLO1TAB24 PO; +AMLO1TAB25 PO; +AMOX875T2 PO; +ASPI-424 PO; +DOXY-350 PO; +DOXY100T PO; +FURO20TA2 PO; +IPRA0.00 INH; +ISOS10TA3 PO; +LASI40TA9 PO; +POTA-136 PO; +PRED20TA PO; +RALO1TAB PO; +VITATAB54 PO
[2022-03-18] MEDS ORDERED: ASPIRIN 81 MG CHEW TABLET PO ONE (13:20)
[2022-03-18 13:46] LABS: BASO % 0.2 % (0.0-1.0); EOS # 0.2 10^3/uL (0.0-0.5); EOS % 1.6 % (0.0-3.0); HEMATOCRIT 32.7 % (36.0-47.0); HEMOGLOBIN 10.8 g/dl (12.0-15.5); LYMPH # 1.1 10^3/uL (1.5-5.0); LYMPH % 10.7 % (24.0-44.0); MEAN CORPUSCULAR HEMOGLOBIN 30.6 pg (27.0-33.0); MEAN CORPUSCULAR VOLUME 92.6 fl (80.0-96.0); MONO # 0.8 10^3/uL (0.0-0.8); MONO % 7.9 % (2.0-8.0); PLATELET COUNT, AUTOMATED 246 10^3/uL (150-450); RED BLOOD COUNT 3.53 10^6/uL (4.00-5.40); WHITE BLOOD COUNT 10.1 10^3/uL (4.0-10.0)
[2022-03-18 14:15] LABS: ABG BASE EXCESS 1.3 (-2.0-2.0); ABG HCO3 25.7 MEQ/L (22.0-26.0); ABG O2 SATURATION 94.7 % (95.0-99.0); ABG PARTIAL PRESSURE CO2 40.1 mmHg (35.0-45.0); ABG PARTIAL PRESSURE O2 74.5 mmHg (75.0-100.0); ABG STANDARD HCO3 25.6 MEQ/L (22.0-26.0); ABG pH (ARTERIAL) 7.425 UNITS (7.350-7.450)
[2022-03-18 14:24] LABS: ALBUMIN 2.9 GM/DL (3.2-5.2); BILIRUBIN,DIRECT 0.3 MG/DL (0.0-0.2); BILIRUBIN,TOTAL 0.8 MG/DL (0.2-1.0); CALCIUM LEVEL 8.8 MG/DL (8.8-10.2); CREATININE FOR GFR 3.21 MG/DL (0.55-1.30); GLOMERULAR FILTRATION RATE 15.1 (>39); POTASSIUM SERUM 3.9 MEQ/L (3.5-5.1); TOTAL PROTEIN 5.6 GM/DL (6.4-8.2)
[2022-03-18 14:25] LABS: CK-MB VALUE MASS 3.1 NG/ML (<3.6); MB/CK RELATIVE INDEX 2.42 (< OR =4)
[2022-03-18 14:27] LABS: RSV AMPLIFICATION NEGATIVE (NEGATIVE)
[2022-03-18 16:25] LABS: CK-MB VALUE MASS 3.5 NG/ML (<3.6); MB/CK RELATIVE INDEX 3.21 (< OR =4)
[2022-03-18 16:30] VITALS: BP 121/79
== END 2022-03-18 16:45 | disposition home or self-care (01) ==
LOC: M ED 12:52 → EDBD 12:52 → M ED 16:45
DX: I50.9 Heart failure, unspecified (principal); R07.9 Chest pain, unspecified; R00.0 Tachycardia, unspecified; I51.9 Heart disease, unspecified; I10 Essential (primary) hypertension; E78.5 Hyperlipidemia, unspecified; Z79.51 Long term (current) use of inhaled steroids; Z79.899 Other long term (current) drug therapy; Z79.82 Long term (current) use of aspirin

== ENCOUNTER → 2022-04-14 | Outpatient (CLI) | payer MEDICARE, OTHER ==
[~2022-04-14] MED LIST changes: +POTA-151 PO
[2022-04-14 15:29] LABS: CREATININE FOR GFR 7.6 MG/DL (0.55-1.30); GLOMERULAR FILTRATION RATE 5.6 (>39); POTASSIUM SERUM 4.5 MEQ/L (3.5-5.1)
== END ==
LOC: M LAB 14:21
PROVIDERS: ATTEND Internal Medicine Medical Oncology
DX: R79.89 Other specified abnormal findings of blood chemistry (principal)

== ENCOUNTER 2022-04-16 14:01 | Inpatient (IN) | payer MEDICARE, OTHER ==
[~2022-04-16] VITALS: Ht 157.5 cm; Wt 86.6 kg
[~2022-04-16 14:01] MED LIST changes: -DOXY-350 PO; +DOXY-444 PO
[2022-04-16] MEDS ORDERED: IPRA0.00 (14:12)
[2022-04-16] MEDS ORDERED: FENO145T7 PO (14:12)
[2022-04-16] MEDS ORDERED: VITMTA PO (14:12)
[2022-04-16] MEDS ORDERED: PROC10TA5 PO (14:12)
[2022-04-16] MEDS ORDERED: ADV250INH INH (14:12)
[2022-04-16] MEDS ORDERED: AMLO25TA PO (14:12)
[2022-04-16] MEDS ORDERED: ALPRAZolam 0.25 MG TAB PO ONE (14:30)
[2022-04-16 15:22] LABS: BASO # 0.1 10^3/uL (0.0-0.2); BASO % 0.7 % (0.0-1.0); EOS # 0.3 10^3/uL (0.0-0.5); EOS % 2.2 % (0.0-3.0); HEMATOCRIT 33.2 % (36.0-47.0); HEMOGLOBIN 10.5 g/dl (12.0-15.5); LYMPH # 1.8 10^3/uL (1.5-5.0); LYMPH % 14.6 % (24.0-44.0); MEAN CORPUSCULAR HEMOGLOBIN 30.4 pg (27.0-33.0); MEAN CORPUSCULAR HGB CONC 31.6 g/dl (32.0-36.5); MEAN CORPUSCULAR VOLUME 96.2 fl (80.0-96.0); MONO # 1.1 10^3/uL (0.0-0.8); MONO % 8.6 % (2.0-8.0); NEUTROPHILS # 9.1 10^3/uL (1.5-8.5); NEUTROPHILS % 73.1 % (36.0-66.0); PLATELET COUNT, AUTOMATED 295 10^3/uL (150-450); RED BLOOD COUNT 3.45 10^6/uL (4.00-5.40); WHITE BLOOD COUNT 12.5 10^3/uL (4.0-10.0)
[2022-04-16 15:25] LABS: ALBUMIN 2.7 GM/DL (3.2-5.2); CALCIUM LEVEL 8.8 MG/DL (8.8-10.2); CREATININE FOR GFR 6.79 MG/DL (0.55-1.30); GLOMERULAR FILTRATION RATE 6.4 (>39); PHOSPHORUS LEVEL 3.7 MG/DL (2.5-4.9)
[2022-04-16 15:32] LABS: CALCIUM LEVEL 8.7 MG/DL (8.8-10.2); CREATININE FOR GFR 6.67 MG/DL (0.55-1.30); GLOMERULAR FILTRATION RATE 6.5 (>39)
[2022-04-16 15:33] LABS: ALBUMIN 2.7 GM/DL (3.2-5.2); BILIRUBIN,TOTAL 0.3 MG/DL (0.2-1.0); MAGNESIUM LEVEL 1.7 MG/DL (1.8-2.4); URIC ACID 5.4 MG/DL (2.6-6.0)
[2022-04-16 15:48] LABS: RSV AMPLIFICATION NEGATIVE (NEGATIVE)
[2022-04-16] MEDS ORDERED: FURO20TA2 PO (16:33)
[2022-04-16] MEDS ORDERED: OMEG10005 PO (16:37)
[2022-04-16] MEDS ORDERED: ACET650T61 PO (16:37)
[2022-04-16] MEDS ORDERED: HOME MED LIST COMPLETE! XX SCH (16:40)
[2022-04-16] MEDS ORDERED: IPRATROPIUM 0.5MG/ALBUTEROL 2.5MG INH SOL UD 3ML (DUONEB) NEB PRN (17:00)
[2022-04-16 17:38] LABS: ERYTHROCYTE SEDIMENTATION RATE 65 mm/hr (0-30)
[2022-04-16] MEDS: ROSUVASTATIN 10 MG TAB (CRESTOR) PO SCH (20:43)
[2022-04-16] MEDS: ASPIRIN 81MG ENTERIC TABLET PO SCH (20:43)
[2022-04-16 20:51] LABS: POTASSIUM RANDOM URINE 55.4 MEQ/L
[2022-04-16] MEDS: ADVAIR HFA 115/21MCG INHALER INH SCH (21:10)
[2022-04-16 22:00] VITALS: BP 134/75
[2022-04-17 06:00] VITALS: BP 125/72
[2022-04-17] MEDS: HEPARIN SOD (PORCINE) 5000UNITS/ML 1ML VIAL/SYRINGE SC SCH ×3 (06:01→23:56)
[2022-04-17 06:59] LABS: HEMATOCRIT 29.9 % (36.0-47.0); HEMOGLOBIN 9.3 g/dl (12.0-15.5); MEAN CORPUSCULAR HEMOGLOBIN 29.9 pg (27.0-33.0); MEAN CORPUSCULAR HGB CONC 31.1 g/dl (32.0-36.5); MEAN CORPUSCULAR VOLUME 96.1 fl (80.0-96.0); PLATELET COUNT, AUTOMATED 239 10^3/uL (150-450); RED BLOOD COUNT 3.11 10^6/uL (4.00-5.40)
[2022-04-17] MEDS: ADVAIR HFA 115/21MCG INHALER INH SCH ×2 (07:50→19:27)
[2022-04-17 07:51] LABS: CALCIUM LEVEL 8.7 MG/DL (8.8-10.2); CREATININE FOR GFR 6.34 MG/DL (0.55-1.30); GLOMERULAR FILTRATION RATE 6.9 (>39); MAGNESIUM LEVEL 1.7 MG/DL (1.8-2.4); PHOSPHORUS LEVEL 4.3 MG/DL (2.5-4.9); POTASSIUM SERUM 4.5 MEQ/L (3.5-5.1)
[2022-04-17] MEDS ORDERED: methylPREDNISolone 40MG 1ML VIAL IV ONE (08:05)
[2022-04-17] MEDS: CEFDINIR 300 MG CAP (OMNICEF) PO SCH (08:17)
[2022-04-17] MEDS: FENOFIBRATE 145MG TABLET (TRICOR) PO SCH (08:17)
[2022-04-17] MEDS: IPRATROPIUM 0.5MG/ALBUTEROL 2.5MG INH SOL UD 3ML (DUONEB) NEB SCH ×4 (08:27→19:27)
[2022-04-17] MEDS ORDERED: MAGNESIUM OXIDE 400MG TAB (MAG-OX) PO ONE (13:30)
[2022-04-17 14:00] VITALS: BP 121/58
[2022-04-17] MEDS: AZITHROMYCIN 250MG TABLET PO SCH (14:20)
[2022-04-17 17:48] VITALS: BP 149/71
[2022-04-17 20:30] VITALS: BP 125/66
[2022-04-17 21:00] VITALS: BP 146/72
[2022-04-17] MEDS ORDERED: HEPARIN SOD (PORCINE) 5000UNITS/ML 1ML VIAL/SYRINGE As Ordered ONE (21:02)
[2022-04-17] MEDS ORDERED: BUPIVACAINE HCL 0.5% 30ML VIAL As Ordered ONE (21:02)
[2022-04-17] MEDS ORDERED: LIDOCAINE 1% MDV 20ML VIAL As Ordered ONE (21:02)
[2022-04-17 21:30] VITALS: BP 148/72
[2022-04-17] MEDS ORDERED: fentaNYL 100 MCG/2 ML INJECTION As Ordered ONE (21:33)
[2022-04-17] MEDS ORDERED: MIDAZOLAM INJ 2MG/2ML VIAL (J2250 PER 1MG) As Ordered ONE (21:33)
[2022-04-17] MEDS ORDERED: LIDOCAINE 2% 100MG/5ML SDV (FOR ANES.) As Ordered ONE (21:33)
[2022-04-17] MEDS ORDERED: propofoL 200 MG/20 ML VIAL As Ordered ONE (21:33)
[2022-04-17] MEDS ORDERED: ceFAZolin 2 GM/D5W 50 ML IV BAG (J0690 PER 500MG) As Ordered ONE (21:41)
[2022-04-17] MEDS ORDERED: PHENYLephrine 500MCG 5ML (100MCG/ML) SYRINGE As Ordered ONE (21:46)
[2022-04-17] MEDS ORDERED: fentaNYL 100 MCG/2 ML INJECTION IV PRN (22:25)
[2022-04-17] MEDS ORDERED: oxyCODONE 5MG TAB PO PRN (22:25)
[2022-04-17] MEDS ORDERED: LR 1,000 ML IV SCH (22:25)
[2022-04-17] MEDS ORDERED: ONDANSETRON 4MG 2ML VIAL IV PRN (22:25)
[2022-04-17] MEDS: ASPIRIN 81MG ENTERIC TABLET PO SCH (23:56)
[2022-04-18] VITALS (8 sets, daily range): BP systolic 103–139; BP diastolic 67–82
[2022-04-18] MEDS: ROSUVASTATIN 10 MG TAB (CRESTOR) PO SCH ×2 (00:01→20:57)
[2022-04-18] MEDS: HEPARIN SOD (PORCINE) 5000UNITS/ML 1ML VIAL/SYRINGE SC SCH ×3 (05:09→20:57)
[2022-04-18] MEDS: IPRATROPIUM 0.5MG/ALBUTEROL 2.5MG INH SOL UD 3ML (DUONEB) NEB SCH ×7 (05:10→23:14)
[2022-04-18 06:54] LABS: HEMATOCRIT 26.1 % (36.0-47.0); HEMOGLOBIN 8.2 g/dl (12.0-15.5); MEAN CORPUSCULAR HEMOGLOBIN 29.8 pg (27.0-33.0); MEAN CORPUSCULAR HGB CONC 31.4 g/dl (32.0-36.5); MEAN CORPUSCULAR VOLUME 94.9 fl (80.0-96.0); PLATELET COUNT, AUTOMATED 225 10^3/uL (150-450); RED BLOOD COUNT 2.75 10^6/uL (4.00-5.40); WHITE BLOOD COUNT 11.5 10^3/uL (4.0-10.0)
[2022-04-18 07:29] LABS: CALCIUM LEVEL 8.6 MG/DL (8.8-10.2); CREATININE FOR GFR 5.78 MG/DL (0.55-1.30); GLOMERULAR FILTRATION RATE 7.7 (>39); MAGNESIUM LEVEL 1.7 MG/DL (1.8-2.4); PHOSPHORUS LEVEL 3.2 MG/DL (2.5-4.9); POTASSIUM SERUM 4.7 MEQ/L (3.5-5.1)
[2022-04-18] MEDS: ADVAIR HFA 115/21MCG INHALER INH SCH ×2 (07:36→20:00)
[2022-04-18] MEDS: methylPREDNISolone 40MG 1ML VIAL IV SCH (08:35)
[2022-04-18] MEDS: FENOFIBRATE 145MG TABLET (TRICOR) PO SCH (08:36)
[2022-04-18] MEDS: AZITHROMYCIN 250MG TABLET PO SCH (08:36)
[2022-04-18] MEDS: CEFDINIR 300 MG CAP (OMNICEF) PO SCH (08:37)
[2022-04-18] MEDS ORDERED: SODIUM CHLORIDE 0.9% 1000ML IV PRN (09:35)
[2022-04-18] MEDS: ACETAMINOPHEN 650MG ER TAB (TYLENOL ARTHRITIS) PO PRN (16:17)
[2022-04-18] MEDS: ASPIRIN 81MG ENTERIC TABLET PO SCH (20:57)
[2022-04-19] VITALS: BP 99/59
[2022-04-19] MEDS: IPRATROPIUM 0.5MG/ALBUTEROL 2.5MG INH SOL UD 3ML (DUONEB) NEB SCH ×6 (03:03→23:00)
[2022-04-19] MEDS: HEPARIN SOD (PORCINE) 5000UNITS/ML 1ML VIAL/SYRINGE SC SCH ×3 (05:13→21:09)
[2022-04-19 05:31] VITALS: BP 130/73
[2022-04-19 06:33] LABS: HEMATOCRIT 26.7 % (36.0-47.0); HEMOGLOBIN 8.7 g/dl (12.0-15.5); MEAN CORPUSCULAR HEMOGLOBIN 30.6 pg (27.0-33.0); MEAN CORPUSCULAR HGB CONC 32.6 g/dl (32.0-36.5); PLATELET COUNT, AUTOMATED 230 10^3/uL (150-450); RED BLOOD COUNT 2.84 10^6/uL (4.00-5.40); WHITE BLOOD COUNT 11.8 10^3/uL (4.0-10.0)
[2022-04-19 07:12] LABS: CALCIUM LEVEL 8.7 MG/DL (8.8-10.2); CREATININE FOR GFR 3.76 MG/DL (0.55-1.30); GLOMERULAR FILTRATION RATE 12.6 (>39); MAGNESIUM LEVEL 1.7 MG/DL (1.8-2.4); PHOSPHORUS LEVEL 2.2 MG/DL (2.5-4.9)
[2022-04-19] MEDS: ADVAIR HFA 115/21MCG INHALER INH SCH ×2 (08:08→21:16)
[2022-04-19] MEDS: methylPREDNISolone 40MG 1ML VIAL IV SCH (08:14)
[2022-04-19] MEDS: CEFDINIR 300 MG CAP (OMNICEF) PO SCH (08:14)
[2022-04-19] MEDS: FENOFIBRATE 145MG TABLET (TRICOR) PO SCH (08:14)
[2022-04-19 08:15] VITALS: BP 132/75
[2022-04-19] MEDS ORDERED: FUROSEMIDE 80 MG TAB PO ONE (10:20)
[2022-04-19] MEDS ORDERED: MAGNESIUM OXIDE 400MG TAB (MAG-OX) PO ONE (13:40)
[2022-04-19 14:00] VITALS: BP 128/104
[2022-04-19] MEDS: ASPIRIN 81MG ENTERIC TABLET PO SCH (19:59)
[2022-04-19] MEDS: ROSUVASTATIN 10 MG TAB (CRESTOR) PO SCH (19:59)
[2022-04-19 21:00] VITALS: BP 138/67
[2022-04-19] MEDS ORDERED: VANCOMYCIN HCL 1,000 MG, VIAL MATE ADAPTER 1 EACH in NS 250 ML IV ONE (21:00)
[2022-04-19] MEDS ORDERED: VANCOMYCIN HCL 500 MG in D5W MINI-BAG PLUS 100 ML IV ONE (22:00)
[2022-04-20] MEDS: IPRATROPIUM 0.5MG/ALBUTEROL 2.5MG INH SOL UD 3ML (DUONEB) NEB SCH ×5 (03:17→18:43)
[2022-04-20 05:30] VITALS: BP 125/66
[2022-04-20] MEDS: FENOFIBRATE 145MG TABLET (TRICOR) PO SCH (05:30)
[2022-04-20] MEDS: HEPARIN SOD (PORCINE) 5000UNITS/ML 1ML VIAL/SYRINGE SC SCH ×3 (05:31→21:00)
[2022-04-20] MEDS: methylPREDNISolone 40MG 1ML VIAL IV SCH (05:31)
[2022-04-20] MEDS: CEFDINIR 300 MG CAP (OMNICEF) PO SCH ×2 (05:31→15:05)
[2022-04-20 06:09] LABS: HEMATOCRIT 25.9 % (36.0-47.0); HEMOGLOBIN 8.2 g/dl (12.0-15.5); MEAN CORPUSCULAR HEMOGLOBIN 29.8 pg (27.0-33.0); MEAN CORPUSCULAR HGB CONC 31.7 g/dl (32.0-36.5); MEAN CORPUSCULAR VOLUME 94.2 fl (80.0-96.0); PLATELET COUNT, AUTOMATED 209 10^3/uL (150-450); RED BLOOD COUNT 2.75 10^6/uL (4.00-5.40); WHITE BLOOD COUNT 10.8 10^3/uL (4.0-10.0)
[2022-04-20 06:42] LABS: CALCIUM LEVEL 8.4 MG/DL (8.8-10.2); CREATININE FOR GFR 4.61 MG/DL (0.55-1.30); MAGNESIUM LEVEL 1.8 MG/DL (1.8-2.4); PHOSPHORUS LEVEL 2.5 MG/DL (2.5-4.9); POTASSIUM SERUM 3.6 MEQ/L (3.5-5.1)
[2022-04-20] MEDS ORDERED: SODIUM CHLORIDE 0.9% 1000ML IV PRN (06:50)
[2022-04-20] MEDS: ADVAIR HFA 115/21MCG INHALER INH SCH ×2 (09:05→18:43)
[2022-04-20 11:30] LABS: HEPATITIS B CORE ANTIBODY IGM NEGATIVE (NEGATIVE); HEPATITIS B SURFACE ANTIBODY NEGATIVE (POSITIVE); HEPATITIS B SURFACE ANTIGEN NEGATIVE (NEGATIVE); HEPATITIS C VIRUS ABY INDEX < 0.0 INDEX (<0.8)
[2022-04-20 14:00] VITALS: BP 128/67
[2022-04-20] MEDS: ACETAMINOPHEN 650MG ER TAB (TYLENOL ARTHRITIS) PO PRN ×2 (17:53)
[2022-04-20 20:00] VITALS: BP 157/74
[2022-04-20] MEDS: ROSUVASTATIN 10 MG TAB (CRESTOR) PO SCH (20:58)
[2022-04-20] MEDS: ASPIRIN 81MG ENTERIC TABLET PO SCH (20:58)
[2022-04-21] MEDS: IPRATROPIUM 0.5MG/ALBUTEROL 2.5MG INH SOL UD 3ML (DUONEB) NEB SCH ×9 (01:30→21:03)
[2022-04-21] MEDS ORDERED: traMADol 50 MG TAB PO ONE (04:35)
[2022-04-21] MEDS: HEPARIN SOD (PORCINE) 5000UNITS/ML 1ML VIAL/SYRINGE SC SCH ×3 (05:04→20:15)
[2022-04-21 05:05] VITALS: BP 131/74
[2022-04-21 06:47] LABS: HEMATOCRIT 26.8 % (36.0-47.0); HEMOGLOBIN 8.5 g/dl (12.0-15.5); MEAN CORPUSCULAR HEMOGLOBIN 30.2 pg (27.0-33.0); MEAN CORPUSCULAR HGB CONC 31.7 g/dl (32.0-36.5); MEAN CORPUSCULAR VOLUME 95.4 fl (80.0-96.0); PLATELET COUNT, AUTOMATED 218 10^3/uL (150-450); RED BLOOD COUNT 2.81 10^6/uL (4.00-5.40); WHITE BLOOD COUNT 13.2 10^3/uL (4.0-10.0)
[2022-04-21 07:13] LABS: CALCIUM LEVEL 7.7 MG/DL (8.8-10.2); GLOMERULAR FILTRATION RATE 16.4 (>39); MAGNESIUM LEVEL 1.8 MG/DL (1.8-2.4); PHOSPHORUS LEVEL 2.1 MG/DL (2.5-4.9)
[2022-04-21] MEDS: ADVAIR HFA 115/21MCG INHALER INH SCH ×2 (07:41→20:16)
[2022-04-21] MEDS: FENOFIBRATE 145MG TABLET (TRICOR) PO SCH (08:30)
[2022-04-21] MEDS: methylPREDNISolone 40MG 1ML VIAL IV SCH (08:30)
[2022-04-21 14:00] VITALS: BP 130/74
[2022-04-21] MEDS: ROSUVASTATIN 10 MG TAB (CRESTOR) PO SCH (20:14)
[2022-04-21] MEDS: ASPIRIN 81MG ENTERIC TABLET PO SCH (20:14)
[2022-04-21 22:00] VITALS: BP 142/75
[2022-04-22] MEDS: HEPARIN SOD (PORCINE) 5000UNITS/ML 1ML VIAL/SYRINGE SC SCH ×3 (05:16→20:03)
[2022-04-22 06:00] VITALS: BP 116/72
[2022-04-22] MEDS: ADVAIR HFA 115/21MCG INHALER INH SCH ×2 (06:16→20:00)
[2022-04-22] MEDS: IPRATROPIUM 0.5MG/ALBUTEROL 2.5MG INH SOL UD 3ML (DUONEB) NEB SCH ×4 (06:17→20:08)
[2022-04-22 07:10] LABS: BASO % 0.1 % (0.0-1.0); HEMATOCRIT 27.2 % (36.0-47.0); HEMOGLOBIN 8.5 g/dl (12.0-15.5); LYMPH % 12.2 % (24.0-44.0); MEAN CORPUSCULAR HGB CONC 31.3 g/dl (32.0-36.5); MEAN CORPUSCULAR VOLUME 96.1 fl (80.0-96.0); MONO # 1.5 10^3/uL (0.0-0.8); MONO % 9.4 % (2.0-8.0); NEUTROPHILS # 12.5 10^3/uL (1.5-8.5); NEUTROPHILS % 76.4 % (36.0-66.0); PLATELET COUNT, AUTOMATED 215 10^3/uL (150-450); RED BLOOD COUNT 2.83 10^6/uL (4.00-5.40); WHITE BLOOD COUNT 16.3 10^3/uL (4.0-10.0)
[2022-04-22] MEDS ORDERED: SODIUM CHLORIDE 0.9% 1000ML IV PRN (07:25)
[2022-04-22] MEDS: FENOFIBRATE 145MG TABLET (TRICOR) PO SCH (07:32)
[2022-04-22 08:33] LABS: C REACTIVE PROTEIN QUANTITATIV 0.3 MG/DL (0.00-0.30); CALCIUM LEVEL 8.4 MG/DL (8.8-10.2); CREATININE FOR GFR 3.81 MG/DL (0.55-1.30); GLOMERULAR FILTRATION RATE 12.4 (>39); POTASSIUM SERUM 3.9 MEQ/L (3.5-5.1)
[2022-04-22] MEDS ORDERED: predniSONE 20 MG TAB PO ONE (09:00)
[2022-04-22] MEDS ORDERED: IRON SUCROSE 100MG 5ML VIAL (J1756 PER 1MG) IV SCH (12:40)
[2022-04-22] MEDS ORDERED: DARBEPOETIN 100 MCG/0.5 ML *DIALYSIS* SYRINGE (J0882) IV SCH (12:40)
[2022-04-22] MEDS: CEFDINIR 300 MG CAP (OMNICEF) PO SCH (17:11)
[2022-04-22] MEDS: ACETAMINOPHEN 650MG ER TAB (TYLENOL ARTHRITIS) PO PRN (19:54)
[2022-04-22] MEDS: ROSUVASTATIN 10 MG TAB (CRESTOR) PO SCH (19:55)
[2022-04-22] MEDS: ASPIRIN 81MG ENTERIC TABLET PO SCH (19:55)
[2022-04-23] MEDS: IPRATROPIUM 0.5MG/ALBUTEROL 2.5MG INH SOL UD 3ML (DUONEB) NEB SCH ×4 (00:18→11:27)
[2022-04-23] MEDS: HEPARIN SOD (PORCINE) 5000UNITS/ML 1ML VIAL/SYRINGE SC SCH ×3 (05:49→21:22)
[2022-04-23 06:00] VITALS: BP 138/71
[2022-04-23 06:35] LABS: BASO # 0.1 10^3/uL (0.0-0.2); BASO % 0.3 % (0.0-1.0); EOS % 0.1 % (0.0-3.0); HEMOGLOBIN 8.6 g/dl (12.0-15.5); LYMPH # 2.7 10^3/uL (1.5-5.0); LYMPH % 13.8 % (24.0-44.0); MEAN CORPUSCULAR HGB CONC 31.9 g/dl (32.0-36.5); MEAN CORPUSCULAR VOLUME 94.1 fl (80.0-96.0); NEUTROPHILS # 14.2 10^3/uL (1.5-8.5); NEUTROPHILS % 73.6 % (36.0-66.0); PLATELET COUNT, AUTOMATED 228 10^3/uL (150-450); RED BLOOD COUNT 2.87 10^6/uL (4.00-5.40); WHITE BLOOD COUNT 19.2 10^3/uL (4.0-10.0)
[2022-04-23 07:12] LABS: CREATININE FOR GFR 2.68 MG/DL (0.55-1.30); GLOMERULAR FILTRATION RATE 18.7 (>39); POTASSIUM SERUM 3.7 MEQ/L (3.5-5.1)
[2022-04-23 07:30] LABS: MONO # 1.7 10^3/uL (0.0-0.8)
[2022-04-23] MEDS: ADVAIR HFA 115/21MCG INHALER INH SCH ×2 (07:39→19:45)
[2022-04-23] MEDS: FENOFIBRATE 145MG TABLET (TRICOR) PO SCH (07:48)
[2022-04-23] MEDS ORDERED: IPRATROPIUM 0.5MG/ALBUTEROL 2.5MG INH SOL UD 3ML (DUONEB) NEB PRN (12:50)
[2022-04-23 14:00] VITALS: BP 136/67
[2022-04-23] MEDS: ASPIRIN 81MG ENTERIC TABLET PO SCH (20:52)
[2022-04-23] MEDS: ROSUVASTATIN 10 MG TAB (CRESTOR) PO SCH (20:52)
[2022-04-23 22:00] VITALS: BP 138/68
[2022-04-24] MEDS: HEPARIN SOD (PORCINE) 5000UNITS/ML 1ML VIAL/SYRINGE SC SCH ×2 (05:03→13:23)
[2022-04-24 05:04] VITALS: BP 137/68
[2022-04-24 06:15] LABS: BASO % 0.2 % (0.0-1.0); EOS # 0.3 10^3/uL (0.0-0.5); HEMATOCRIT 26.7 % (36.0-47.0); HEMOGLOBIN 8.3 g/dl (12.0-15.5); LYMPH # 3.1 10^3/uL (1.5-5.0); LYMPH % 19.9 % (24.0-44.0); MEAN CORPUSCULAR HEMOGLOBIN 29.4 pg (27.0-33.0); MEAN CORPUSCULAR HGB CONC 31.1 g/dl (32.0-36.5); MEAN CORPUSCULAR VOLUME 94.7 fl (80.0-96.0); MONO % 10.8 % (2.0-8.0); NEUTROPHILS % 63.5 % (36.0-66.0); PLATELET COUNT, AUTOMATED 226 10^3/uL (150-450); RED BLOOD COUNT 2.82 10^6/uL (4.00-5.40); WHITE BLOOD COUNT 15.7 10^3/uL (4.0-10.0)
[2022-04-24 06:58] LABS: C REACTIVE PROTEIN QUANTITATIV 0.3 MG/DL (0.00-0.30); CALCIUM LEVEL 8.8 MG/DL (8.8-10.2); CREATININE FOR GFR 3.58 MG/DL (0.55-1.30); GLOMERULAR FILTRATION RATE 13.4 (>39); POTASSIUM SERUM 3.7 MEQ/L (3.5-5.1)
[2022-04-24] MEDS: ADVAIR HFA 115/21MCG INHALER INH SCH (07:54)
[2022-04-24 08:25] LABS: MONO # 1.7 10^3/uL (0.0-0.8)
[2022-04-24 08:48] VITALS: BP 121/69
[2022-04-24 09:12] LABS: ERYTHROCYTE SEDIMENTATION RATE 11 mm/hr (0-30)
[2022-04-24] MEDS: FENOFIBRATE 145MG TABLET (TRICOR) PO SCH (09:20)
[2022-04-24 14:00] VITALS: BP 132/69
== END 2022-04-24 14:18 | disposition home or self-care (01) | DRG 291 ==
LOC: M ED 14:01 → EEVIPCON 15:48 → M MSPAV 15:48 → M ED INP 15:48 → M MSPAV 19:45
PROVIDERS: ADMIT Internal Medicine; ATTEND Internal Medicine
PROC: 02HV33Z Insertion of Infusion Device into Superior Vena Cava, Percutaneous Approach (ICD-10-PCS; 2022-04-17)
PROC: 0JH63XZ Insertion of Tunneled Vascular Access Device into Chest Subcutaneous Tissue and Fascia, Percutaneous Approach (ICD-10-PCS; principal; 2022-04-17 18:00)
DX: I13.2 Hypertensive heart and chronic kidney disease with heart failure and with stage 5 chronic kidney disease, or end stage renal disease (principal); I50.33 Acute on chronic diastolic (congestive) heart failure; N18.6 End stage renal disease; N39.0 Urinary tract infection, site not specified; J44.1 Chronic obstructive pulmonary disease with (acute) exacerbation; J96.11 Chronic respiratory failure with hypoxia; E78.5 Hyperlipidemia, unspecified; R25.1 Tremor, unspecified; R19.7 Diarrhea, unspecified; M19.90 Unspecified osteoarthritis, unspecified site; D72.829 Elevated white blood cell count, unspecified; Z91.14 Patient's other noncompliance with medication regimen; F41.9 Anxiety disorder, unspecified; D63.1 Anemia in chronic kidney disease; Z79.82 Long term (current) use of aspirin; Z79.899 Other long term (current) drug therapy; Z99.81 Dependence on supplemental oxygen

== ENCOUNTER → 2022-05-04 | Outpatient (REF) | payer MEDICARE, OTHER ==
[~2022-05-04] MED LIST changes: +ACET650T61 PO; +ADV250INH INH; +AMLO25TA PO; +FENO145T7 PO; +IPRA0.00; +OMEG10005 PO; +PROC10TA5 PO; +VITMTA PO
[2022-05-04 15:47] LABS: HEMATOCRIT 29.6 % (36.0-47.0); HEMOGLOBIN 9.1 g/dl (12.0-15.5); MEAN CORPUSCULAR HEMOGLOBIN 29.7 pg (27.0-33.0); MEAN CORPUSCULAR HGB CONC 30.7 g/dl (32.0-36.5); MEAN CORPUSCULAR VOLUME 96.7 fl (80.0-96.0); PLATELET COUNT, AUTOMATED 199 10^3/uL (150-450); RED BLOOD COUNT 3.06 10^6/uL (4.00-5.40); WHITE BLOOD COUNT 10.3 10^3/uL (4.0-10.0)
== END ==
LOC: M LAB REF 15:10
PROVIDERS: ATTEND Internal Medicine
DX: D72.829 Elevated white blood cell count, unspecified (principal)

== ENCOUNTER 2022-05-12 12:58 | Inpatient (IN) | payer MEDICARE, OTHER ==
[~2022-05-12] VITALS: Ht 157.5 cm; Wt 64.7 kg
[2022-05-12] MEDS ORDERED: FURO20TA2 PO (13:23)
[2022-05-12 13:38] LABS: BASO % 0.1 % (0.0-1.0); EOS % 0.2 % (0.0-3.0); HEMOGLOBIN 7.7 g/dl (12.0-15.5); LYMPH # 0.3 10^3/uL (1.5-5.0); LYMPH % 3.1 % (24.0-44.0); MEAN CORPUSCULAR HEMOGLOBIN 28.4 pg (27.0-33.0); MEAN CORPUSCULAR HGB CONC 30.8 g/dl (32.0-36.5); MEAN CORPUSCULAR VOLUME 92.3 fl (80.0-96.0); MONO # 1.5 10^3/uL (0.0-0.8); MONO % 14.5 % (2.0-8.0); NEUTROPHILS # 8.3 10^3/uL (1.5-8.5); NEUTROPHILS % 80.7 % (36.0-66.0); PLATELET COUNT, AUTOMATED 238 10^3/uL (150-450); RED BLOOD COUNT 2.71 10^6/uL (4.00-5.40); WHITE BLOOD COUNT 10.3 10^3/uL (4.0-10.0)
[2022-05-12 14:18] LABS: ALBUMIN 1.9 G/DL (3.2-5.2); BILIRUBIN,DIRECT 0.3 MG/DL (<0.4); BILIRUBIN,TOTAL 0.5 MG/DL (0.3-1.2); CALCIUM LEVEL 7.1 MG/DL (8.3-10.6); CREATININE FOR GFR 4.59 MG/DL (0.55-1.30); POTASSIUM SERUM 3.3 MMOL/L (3.5-5.1); THYROID STIMULATING HORMONE 0.644 uIU/ML (0.55-4.78); TOTAL PROTEIN 4.2 G/DL
[2022-05-12 16:53] LABS: CK-MB VALUE MASS < 1.0 NG/ML (<3.6); CPK CREATINE PHOSPHOKINASE 24 U/L (34-145); MB/CK RELATIVE INDEX 4.16 (< OR =4)
[2022-05-12] MEDS ORDERED: HYDR-3363 PO (20:31)
[2022-05-12] MEDS ORDERED: ADVA230A INH (20:31)
[2022-05-12] MEDS ORDERED: HOME MED LIST COMPLETE! XX SCH (20:35)
[2022-05-12] MEDS ORDERED: ALBUTEROL SULFATE 2.5 MG/0.5 ML INH NEB SOLN NEB PRN (20:55)
[2022-05-12] MEDS ORDERED: methylPREDNISolone 125MG 2ML VIAL IV SCH (22:00)
[2022-05-12] MEDS ORDERED: VANCOMYCIN HCL 1,000 MG, VIAL MATE ADAPTER 1 EACH in D5W 250 ML IV ONE (22:00)
[2022-05-13] VITALS (11 sets, daily range): BP systolic 109–155; BP diastolic 56–79
[2022-05-13] MEDS: PIPERACILLIN/TAZOBACTAM SOD 2.25 GM in D5W MINI-BAG PLUS 50 ML IV SCH ×3 (00:45→17:24)
[2022-05-13] MEDS ORDERED: ALBUTEROL SULFATE 2.5 MG/0.5 ML INH NEB SOLN NEB SCH (02:00)
[2022-05-13 02:18] LABS: HEMATOCRIT 23.6 % (36.0-47.0); HEMOGLOBIN 7.5 g/dl (12.0-15.5)
[2022-05-13 07:04] LABS: HEMATOCRIT 23.2 % (36.0-47.0); HEMOGLOBIN 7.4 g/dl (12.0-15.5); MEAN CORPUSCULAR HEMOGLOBIN 28.8 pg (27.0-33.0); MEAN CORPUSCULAR HGB CONC 31.9 g/dl (32.0-36.5); MEAN CORPUSCULAR VOLUME 90.3 fl (80.0-96.0); PLATELET COUNT, AUTOMATED 247 10^3/uL (150-450); RED BLOOD COUNT 2.57 10^6/uL (4.00-5.40); WHITE BLOOD COUNT 9.5 10^3/uL (4.0-10.0)
[2022-05-13 07:05] LABS: CALCIUM LEVEL 7.2 MG/DL (8.3-10.6); CREATININE FOR GFR 4.67 MG/DL (0.55-1.30); GLOMERULAR FILTRATION RATE 9.8 (>39); POTASSIUM SERUM 3.4 MMOL/L (3.5-5.1)
[2022-05-13] MEDS: IPRATROPIUM 0.5MG/ALBUTEROL 2.5MG INH SOL UD 3ML (DUONEB) NEB SCH (07:08)
[2022-05-13] MEDS ORDERED: SODIUM CHLORIDE 0.9% 1000ML IV PRN (07:50)
[2022-05-13] MEDS ORDERED: HEPARIN 1,000UNITS/ML 10ML VIAL (FOR RADIOLOGY & DIALYSIS ONLY) XX SCH (07:50)
[2022-05-13] MEDS ORDERED: HEPARIN 1,000UNITS/ML 10ML VIAL (FOR RADIOLOGY & DIALYSIS ONLY) IV PRN (07:50)
[2022-05-13] MEDS: HEPARIN SOD (PORCINE) 5000UNITS/ML 1ML VIAL/SYRINGE SQ SCH ×2 (08:35→22:09)
[2022-05-13] MEDS ORDERED: PANTOPRAZOLE 40MG VIAL IV SCH (09:00)
[2022-05-13] MEDS ORDERED: ENOXAPARIN 30MG/0.3ML SYRINGE (J1650 PER 10MG) SC SCH (09:00)
[2022-05-13 11:17] LABS: VANCOMYCIN RANDOM 20.4 UG/ML
[2022-05-13 13:42] LABS: FERRITIN 1354.1 NG/ML (7.3-270.7); PERCENT SATURATION 10.4 % (13.2-45.0)
[2022-05-13] MEDS ORDERED: VANCOMYCIN HCL 1,000 MG, VIAL MATE ADAPTER 1 EACH in NS 250 ML IV SCH (16:00)
[2022-05-13 18:46] LABS: HEMATOCRIT 35.7 % (36.0-47.0); HEMOGLOBIN 11.9 g/dl (12.0-15.5); MEAN CORPUSCULAR HEMOGLOBIN 30.1 pg (27.0-33.0); MEAN CORPUSCULAR HGB CONC 33.3 g/dl (32.0-36.5); MEAN CORPUSCULAR VOLUME 90.2 fl (80.0-96.0); PLATELET COUNT, AUTOMATED 288 10^3/uL (150-450); RED BLOOD COUNT 3.96 10^6/uL (4.00-5.40); WHITE BLOOD COUNT 17.1 10^3/uL (4.0-10.0)
[2022-05-13] MEDS: VANCOMYCIN HCL 750 MG, VIAL MATE ADAPTER 1 EACH in NS 250 ML IV SCH (19:29)
[2022-05-13 19:54] LABS: CALCIUM LEVEL 8.4 MG/DL (8.3-10.6); CREATININE FOR GFR 1.51 MG/DL (0.55-1.30); GLOMERULAR FILTRATION RATE 36.2 (>39)
[2022-05-13] MEDS: ADVAIR HFA 230/21MCG INHALER INH SCH (20:00)
[2022-05-13] MEDS: ASPIRIN 81MG ENTERIC TABLET PO SCH (22:09)
[2022-05-13] MEDS: ROSUVASTATIN 10 MG TAB (CRESTOR) PO SCH (22:09)
[2022-05-14] MEDS: PIPERACILLIN/TAZOBACTAM SOD 2.25 GM in D5W MINI-BAG PLUS 50 ML IV SCH ×4 (00:49→23:53)
[2022-05-14 06:00] VITALS: BP 143/69
[2022-05-14] MEDS ORDERED: SODIUM CHLORIDE 0.9% 1000ML IV PRN (06:00)
[2022-05-14] MEDS ORDERED: HEPARIN 1,000UNITS/ML 10ML VIAL (FOR RADIOLOGY & DIALYSIS ONLY) XX SCH (06:00)
[2022-05-14] MEDS ORDERED: HEPARIN 1,000UNITS/ML 10ML VIAL (FOR RADIOLOGY & DIALYSIS ONLY) IV PRN (06:00)
[2022-05-14 06:10] LABS: HEMATOCRIT 35.4 % (36.0-47.0); MEAN CORPUSCULAR HEMOGLOBIN 29.9 pg (27.0-33.0); MEAN CORPUSCULAR HGB CONC 33.9 g/dl (32.0-36.5); MEAN CORPUSCULAR VOLUME 88.3 fl (80.0-96.0); PLATELET COUNT, AUTOMATED 329 10^3/uL (150-450); RED BLOOD COUNT 4.01 10^6/uL (4.00-5.40); WHITE BLOOD COUNT 15.5 10^3/uL (4.0-10.0)
[2022-05-14] MEDS: HEPARIN SOD (PORCINE) 5000UNITS/ML 1ML VIAL/SYRINGE SQ SCH ×2 (06:27→21:20)
[2022-05-14 07:32] LABS: CALCIUM LEVEL 8.5 MG/DL (8.3-10.6); CREATININE FOR GFR 2.2 MG/DL (0.55-1.30); GLOMERULAR FILTRATION RATE 23.4 (>39); POTASSIUM SERUM 3.1 MMOL/L (3.5-5.1); VANCOMYCIN RANDOM 23.7 UG/ML
[2022-05-14] MEDS: FENOFIBRATE 145MG TABLET (TRICOR) PO SCH (07:44)
[2022-05-14] MEDS: FUROSEMIDE 20 MG TAB PO SCH ×2 (07:44→16:30)
[2022-05-14 07:45] VITALS: BP 143/79
[2022-05-14] MEDS: ADVAIR HFA 230/21MCG INHALER INH SCH ×2 (08:00→19:27)
[2022-05-14] MEDS: IPRATROPIUM 0.5MG/ALBUTEROL 2.5MG INH SOL UD 3ML (DUONEB) NEB SCH ×2 (08:00→19:28)
[2022-05-14 12:30] VITALS: BP 140/70
[2022-05-14 14:00] VITALS: BP 127/64
[2022-05-14] MEDS ORDERED: MIRALAX *UNIT DOSE* 17GM PACKET PO PRN (15:10)
[2022-05-14] MEDS ORDERED: POTASSIUM CHLORIDE 10MEQ SR TABLET PO ONE (16:00)
[2022-05-14] MEDS: VANCOMYCIN HCL 750 MG, VIAL MATE ADAPTER 1 EACH in NS 250 ML IV SCH (16:24)
[2022-05-14] MEDS: DOCUSATE SODIUM 100MG CAPSULE PO SCH (21:20)
[2022-05-14] MEDS: ASPIRIN 81MG ENTERIC TABLET PO SCH (21:20)
[2022-05-14] MEDS: ROSUVASTATIN 10 MG TAB (CRESTOR) PO SCH (21:21)
[2022-05-14] MEDS: SENNA 8.6 MG TAB (SENOKOT) PO SCH (21:21)
[2022-05-14 22:00] VITALS: BP 110/52
[2022-05-15 06:00] VITALS: BP 112/62
[2022-05-15 06:06] LABS: HEMATOCRIT 33.3 % (36.0-47.0); MEAN CORPUSCULAR HEMOGLOBIN 30.3 pg (27.0-33.0); MEAN CORPUSCULAR VOLUME 91.7 fl (80.0-96.0); PLATELET COUNT, AUTOMATED 298 10^3/uL (150-450); RED BLOOD COUNT 3.63 10^6/uL (4.00-5.40); WHITE BLOOD COUNT 11.1 10^3/uL (4.0-10.0)
[2022-05-15] MEDS: ADVAIR HFA 230/21MCG INHALER INH SCH ×2 (06:13→19:44)
[2022-05-15 07:42] LABS: CALCIUM LEVEL 7.9 MG/DL (8.3-10.6); CREATININE FOR GFR 2.09 MG/DL (0.55-1.30); GLOMERULAR FILTRATION RATE 24.9 (>39); POTASSIUM SERUM 3.2 MMOL/L (3.5-5.1); VANCOMYCIN RANDOM 23.6 UG/ML
[2022-05-15] MEDS: PIPERACILLIN/TAZOBACTAM SOD 2.25 GM in D5W MINI-BAG PLUS 50 ML IV SCH (08:27)
[2022-05-15] MEDS: FENOFIBRATE 145MG TABLET (TRICOR) PO SCH (08:30)
[2022-05-15] MEDS: DOCUSATE SODIUM 100MG CAPSULE PO SCH ×2 (08:30→18:36)
[2022-05-15] MEDS: HEPARIN SOD (PORCINE) 5000UNITS/ML 1ML VIAL/SYRINGE SQ SCH ×2 (08:31→18:36)
[2022-05-15 08:32] VITALS: BP 92/48
[2022-05-15] MEDS: FUROSEMIDE 20 MG TAB PO SCH ×2 (08:44→17:00)
[2022-05-15 10:17] LABS: CK-MB VALUE MASS < 1.0 NG/ML (<3.6); CPK CREATINE PHOSPHOKINASE 22 U/L (34-145); MB/CK RELATIVE INDEX 4.54 (< OR =4)
[2022-05-15] MEDS: POTASSIUM CHLORIDE 10MEQ SR TABLET PO SCH ×2 (10:22→12:43)
[2022-05-15] MEDS: cefTRIAXone SOD 1 GM in D5W MINI-BAG PLUS 50 ML IV SCH (12:42)
[2022-05-15 14:00] VITALS: BP 117/73
[2022-05-15] MEDS: ROSUVASTATIN 10 MG TAB (CRESTOR) PO SCH (18:35)
[2022-05-15] MEDS: ASPIRIN 81MG ENTERIC TABLET PO SCH (18:35)
[2022-05-15] MEDS: SENNA 8.6 MG TAB (SENOKOT) PO SCH (18:36)
[2022-05-15 19:20] VITALS: BP 115/76
[2022-05-15] MEDS: FERROUS SULFATE 325MG TAB PO SCH (19:57)
[2022-05-16 04:30] VITALS: BP 118/66
[2022-05-16 06:25] LABS: HEMATOCRIT 33.3 % (36.0-47.0); HEMOGLOBIN 10.7 g/dl (12.0-15.5); MEAN CORPUSCULAR HEMOGLOBIN 29.7 pg (27.0-33.0); MEAN CORPUSCULAR HGB CONC 32.1 g/dl (32.0-36.5); MEAN CORPUSCULAR VOLUME 92.5 fl (80.0-96.0); PLATELET COUNT, AUTOMATED 316 10^3/uL (150-450); WHITE BLOOD COUNT 13.3 10^3/uL (4.0-10.0)
[2022-05-16] MEDS: DOCUSATE SODIUM 100MG CAPSULE PO SCH (06:26)
[2022-05-16] MEDS: FUROSEMIDE 20 MG TAB PO SCH ×3 (06:27→16:02)
[2022-05-16] MEDS: HEPARIN SOD (PORCINE) 5000UNITS/ML 1ML VIAL/SYRINGE SQ SCH ×2 (06:31→20:31)
[2022-05-16] MEDS: FERROUS SULFATE 325MG TAB PO SCH ×2 (06:31→20:31)
[2022-05-16] MEDS: FENOFIBRATE 145MG TABLET (TRICOR) PO SCH (06:31)
[2022-05-16 07:01] LABS: CALCIUM LEVEL 8.8 MG/DL (8.3-10.6); CREATININE FOR GFR 3.19 MG/DL (0.55-1.30); GLOMERULAR FILTRATION RATE 15.3 (>39)
[2022-05-16] MEDS ORDERED: HEPARIN 1,000UNITS/ML 10ML VIAL (FOR RADIOLOGY & DIALYSIS ONLY) IV PRN (07:40)
[2022-05-16] MEDS ORDERED: SODIUM CHLORIDE 0.9% 1000ML IV PRN (07:40)
[2022-05-16] MEDS ORDERED: HEPARIN 1,000UNITS/ML 10ML VIAL (FOR RADIOLOGY & DIALYSIS ONLY) XX SCH (07:40)
[2022-05-16] MEDS: cefTRIAXone SOD 1 GM in D5W MINI-BAG PLUS 50 ML IV SCH (12:47)
[2022-05-16] MEDS: ADVAIR HFA 230/21MCG INHALER INH SCH ×2 (13:30→20:43)
[2022-05-16 14:00] VITALS: BP 125/70
[2022-05-16] MEDS: ESCITALOPRAM OXALATE 10 MG TAB (LEXAPRO) PO SCH (18:00)
[2022-05-16] MEDS: ASPIRIN 81MG ENTERIC TABLET PO SCH (20:30)
[2022-05-16] MEDS: ROSUVASTATIN 10 MG TAB (CRESTOR) PO SCH (20:31)
[2022-05-16 22:00] VITALS: BP 125/72
[2022-05-17 06:00] VITALS: BP 130/71
[2022-05-17 07:27] LABS: HEMOGLOBIN 11.7 g/dl (12.0-15.5); MEAN CORPUSCULAR HEMOGLOBIN 29.6 pg (27.0-33.0); MEAN CORPUSCULAR HGB CONC 31.6 g/dl (32.0-36.5); MEAN CORPUSCULAR VOLUME 93.7 fl (80.0-96.0); PLATELET COUNT, AUTOMATED 329 10^3/uL (150-450); RED BLOOD COUNT 3.95 10^6/uL (4.00-5.40); WHITE BLOOD COUNT 15.5 10^3/uL (4.0-10.0)
[2022-05-17] MEDS: ADVAIR HFA 230/21MCG INHALER INH SCH ×2 (07:42→18:06)
[2022-05-17 08:02] LABS: CALCIUM LEVEL 9.5 MG/DL (8.3-10.6); CREATININE FOR GFR 2.38 MG/DL (0.55-1.30); GLOMERULAR FILTRATION RATE 21.4 (>39); POTASSIUM SERUM 3.9 MMOL/L (3.5-5.1)
[2022-05-17] MEDS: FERROUS SULFATE 325MG TAB PO SCH ×2 (08:50→21:09)
[2022-05-17] MEDS: FUROSEMIDE 20 MG TAB PO SCH ×2 (08:50→17:51)
[2022-05-17] MEDS: ESCITALOPRAM OXALATE 10 MG TAB (LEXAPRO) PO SCH (08:50)
[2022-05-17] MEDS: FENOFIBRATE 145MG TABLET (TRICOR) PO SCH (08:50)
[2022-05-17] MEDS: HEPARIN SOD (PORCINE) 5000UNITS/ML 1ML VIAL/SYRINGE SQ SCH ×2 (08:51→21:10)
[2022-05-17] MEDS: LACTOBACILLUS ACIDOPHILUS CAP (BACID) PO SCH ×2 (09:36→17:51)
[2022-05-17] MEDS: DOXYCYCLINE HYCLATE 100MG TABLET PO SCH ×2 (09:36→21:09)
[2022-05-17] MEDS: cefTRIAXone SOD 1 GM in D5W MINI-BAG PLUS 50 ML IV SCH (12:30)
[2022-05-17 14:00] VITALS: BP 132/64
[2022-05-17] MEDS: ASPIRIN 81MG ENTERIC TABLET PO SCH (21:09)
[2022-05-17] MEDS: ROSUVASTATIN 10 MG TAB (CRESTOR) PO SCH (21:09)
[2022-05-17 22:00] VITALS: BP 122/54
[2022-05-18 06:00] VITALS: BP 116/48
[2022-05-18 06:27] LABS: HEMATOCRIT 35.8 % (36.0-47.0); HEMOGLOBIN 11.3 g/dl (12.0-15.5); MEAN CORPUSCULAR HEMOGLOBIN 29.7 pg (27.0-33.0); MEAN CORPUSCULAR HGB CONC 31.6 g/dl (32.0-36.5); MEAN CORPUSCULAR VOLUME 94.2 fl (80.0-96.0); PLATELET COUNT, AUTOMATED 321 10^3/uL (150-450); WHITE BLOOD COUNT 14.9 10^3/uL (4.0-10.0)
[2022-05-18] MEDS ORDERED: HEPARIN 1,000UNITS/ML 10ML VIAL (FOR RADIOLOGY & DIALYSIS ONLY) IV PRN (06:40)
[2022-05-18] MEDS ORDERED: HEPARIN 1,000UNITS/ML 10ML VIAL (FOR RADIOLOGY & DIALYSIS ONLY) XX SCH (06:40)
[2022-05-18] MEDS ORDERED: SODIUM CHLORIDE 0.9% 1000ML IV PRN (06:40)
[2022-05-18 07:02] LABS: CALCIUM LEVEL 8.4 MG/DL (8.3-10.6); CREATININE FOR GFR 3.08 MG/DL (0.55-1.30); GLOMERULAR FILTRATION RATE 15.9 (>39); POTASSIUM SERUM 3.8 MMOL/L (3.5-5.1)
[2022-05-18] MEDS: LACTOBACILLUS ACIDOPHILUS CAP (BACID) PO SCH ×2 (07:13→16:51)
[2022-05-18] MEDS: DOXYCYCLINE HYCLATE 100MG TABLET PO SCH (07:13)
[2022-05-18] MEDS: FERROUS SULFATE 325MG TAB PO SCH ×2 (07:13→20:03)
[2022-05-18] MEDS: FENOFIBRATE 145MG TABLET (TRICOR) PO SCH (07:13)
[2022-05-18] MEDS: ESCITALOPRAM OXALATE 10 MG TAB (LEXAPRO) PO SCH (07:13)
[2022-05-18] MEDS: FUROSEMIDE 20 MG TAB PO SCH ×2 (07:13→16:51)
[2022-05-18] MEDS: HEPARIN SOD (PORCINE) 5000UNITS/ML 1ML VIAL/SYRINGE SQ SCH ×2 (07:15→20:05)
[2022-05-18] MEDS: ADVAIR HFA 230/21MCG INHALER INH SCH ×2 (07:25→20:20)
[2022-05-18] MEDS: ONDANSETRON 4MG 2ML VIAL IV PRN (07:33)
[2022-05-18] MEDS: cefTRIAXone SOD 1 GM in D5W MINI-BAG PLUS 50 ML IV SCH (16:50)
[2022-05-18 17:01] VITALS: BP 146/68
[2022-05-18 18:29] LABS: CLOSTRIDIUM DIFFICILE PCR NEGATIVE (NEGATIVE)
[2022-05-18] MEDS: ceFAZolin SOD 1 GM in D5W MINI-BAG PLUS 50 ML IV SCH (20:03)
[2022-05-18] MEDS: ASPIRIN 81MG ENTERIC TABLET PO SCH (20:03)
[2022-05-18] MEDS: ROSUVASTATIN 10 MG TAB (CRESTOR) PO SCH (20:04)
[2022-05-18 21:00] VITALS: BP 152/68
[2022-05-19 05:15] VITALS: BP 142/70
[2022-05-19 06:32] LABS: HEMATOCRIT 36.3 % (36.0-47.0); HEMOGLOBIN 11.3 g/dl (12.0-15.5); MEAN CORPUSCULAR HEMOGLOBIN 29.3 pg (27.0-33.0); MEAN CORPUSCULAR HGB CONC 31.1 g/dl (32.0-36.5); PLATELET COUNT, AUTOMATED 295 10^3/uL (150-450); RED BLOOD COUNT 3.86 10^6/uL (4.00-5.40); WHITE BLOOD COUNT 16.7 10^3/uL (4.0-10.0)
[2022-05-19 07:01] LABS: CALCIUM LEVEL 8.2 MG/DL (8.3-10.6); CREATININE FOR GFR 2.18 MG/DL (0.55-1.30); GLOMERULAR FILTRATION RATE 23.7 (>39); MAGNESIUM LEVEL 1.5 MG/DL (1.8-2.4); POTASSIUM SERUM 3.7 MMOL/L (3.5-5.1)
[2022-05-19] MEDS: ADVAIR HFA 230/21MCG INHALER INH SCH ×2 (07:32→19:56)
[2022-05-19] MEDS ORDERED: MAGNESIUM OXIDE 400MG TAB (MAG-OX) PO ONE (08:15)
[2022-05-19] MEDS: LACTOBACILLUS ACIDOPHILUS CAP (BACID) PO SCH ×2 (08:55→17:12)
[2022-05-19] MEDS: ESCITALOPRAM OXALATE 10 MG TAB (LEXAPRO) PO SCH (08:55)
[2022-05-19] MEDS: FERROUS SULFATE 325MG TAB PO SCH ×2 (08:55→20:18)
[2022-05-19] MEDS: FUROSEMIDE 20 MG TAB PO SCH ×2 (08:56→17:12)
[2022-05-19] MEDS: HEPARIN SOD (PORCINE) 5000UNITS/ML 1ML VIAL/SYRINGE SQ SCH ×2 (08:56→20:19)
[2022-05-19] MEDS: FENOFIBRATE 145MG TABLET (TRICOR) PO SCH (08:56)
[2022-05-19 14:00] VITALS: BP 136/60
[2022-05-19] MEDS: ceFAZolin SOD 1 GM in D5W MINI-BAG PLUS 50 ML IV SCH (19:23)
[2022-05-19] MEDS: ASPIRIN 81MG ENTERIC TABLET PO SCH (20:19)
[2022-05-19] MEDS: ROSUVASTATIN 10 MG TAB (CRESTOR) PO SCH (20:19)
[2022-05-19 22:00] VITALS: BP 110/56
[2022-05-20 04:50] VITALS: BP 118/72
[2022-05-20] MEDS: FENOFIBRATE 145MG TABLET (TRICOR) PO SCH (05:18)
[2022-05-20] MEDS: LACTOBACILLUS ACIDOPHILUS CAP (BACID) PO SCH ×2 (05:18→17:08)
[2022-05-20] MEDS: ESCITALOPRAM OXALATE 10 MG TAB (LEXAPRO) PO SCH (05:18)
[2022-05-20] MEDS: FERROUS SULFATE 325MG TAB PO SCH (05:18)
[2022-05-20] MEDS: HEPARIN SOD (PORCINE) 5000UNITS/ML 1ML VIAL/SYRINGE SQ SCH ×3 (05:19→20:43)
[2022-05-20] MEDS: FUROSEMIDE 20 MG TAB PO SCH (05:19)
[2022-05-20] MEDS: ONDANSETRON 4MG 2ML VIAL IV PRN (05:24)
[2022-05-20] MEDS: ADVAIR HFA 230/21MCG INHALER INH SCH ×2 (07:29→19:54)
[2022-05-20] MEDS ORDERED: HEPARIN 1,000UNITS/ML 10ML VIAL (FOR RADIOLOGY & DIALYSIS ONLY) XX SCH (07:50)
[2022-05-20] MEDS ORDERED: SODIUM CHLORIDE 0.9% 1000ML IV PRN (07:50)
[2022-05-20] MEDS ORDERED: HEPARIN 1,000UNITS/ML 10ML VIAL (FOR RADIOLOGY & DIALYSIS ONLY) IV PRN (07:50)
[2022-05-20] MEDS: METAMUCIL (PSYLLIUM) PACKET PO SCH (09:00)
[2022-05-20 09:08] LABS: BASO # 0.1 10^3/uL (0.0-0.2); BASO % 0.8 % (0.0-1.0); EOS # 0.4 10^3/uL (0.0-0.5); EOS % 2.4 % (0.0-3.0); HEMATOCRIT 36.9 % (36.0-47.0); HEMOGLOBIN 11.7 g/dl (12.0-15.5); LYMPH # 1.6 10^3/uL (1.5-5.0); LYMPH % 8.6 % (24.0-44.0); MEAN CORPUSCULAR HEMOGLOBIN 29.5 pg (27.0-33.0); MEAN CORPUSCULAR HGB CONC 31.7 g/dl (32.0-36.5); MEAN CORPUSCULAR VOLUME 92.9 fl (80.0-96.0); MONO % 8.4 % (2.0-8.0); NEUTROPHILS # 13.8 10^3/uL (1.5-8.5); NEUTROPHILS % 74.3 % (36.0-66.0); PLATELET COUNT, AUTOMATED 280 10^3/uL (150-450); RED BLOOD COUNT 3.97 10^6/uL (4.00-5.40); WHITE BLOOD COUNT 18.6 10^3/uL (4.0-10.0)
[2022-05-20 09:10] LABS: MONO # 1.6 10^3/uL (0.0-0.8)
[2022-05-20] MEDS ORDERED: PANTOPRAZOLE 40MG TAB (PROTONIX) PO ONE (09:25)
[2022-05-20 09:56] LABS: ALBUMIN 2.2 G/DL (3.2-5.2); BILIRUBIN,TOTAL 0.4 MG/DL (0.3-1.2); CALCIUM LEVEL 8.7 MG/DL (8.3-10.6); GLOMERULAR FILTRATION RATE 16.4 (>39); MAGNESIUM LEVEL 1.6 MG/DL (1.8-2.4); POTASSIUM SERUM 3.6 MMOL/L (3.5-5.1); TOTAL PROTEIN 4.7 G/DL (5.7-8.2)
[2022-05-20] MEDS: METOCLOPRAMIDE 5 MG TAB PO SCH ×4 (10:20→20:43)
[2022-05-20 17:10] VITALS: BP 124/72
[2022-05-20] MEDS: ASPIRIN 81MG ENTERIC TABLET PO SCH (20:43)
[2022-05-20] MEDS: ceFAZolin SOD 1 GM in D5W MINI-BAG PLUS 50 ML IV SCH (20:43)
[2022-05-20 20:50] VITALS: BP 108/62
[2022-05-21 04:30] VITALS: BP 142/72
[2022-05-21 06:01] LABS: HEMATOCRIT 37.4 % (36.0-47.0); HEMOGLOBIN 11.6 g/dl (12.0-15.5); MEAN CORPUSCULAR HEMOGLOBIN 29.2 pg (27.0-33.0); MEAN CORPUSCULAR VOLUME 94.2 fl (80.0-96.0); PLATELET COUNT, AUTOMATED 263 10^3/uL (150-450); RED BLOOD COUNT 3.97 10^6/uL (4.00-5.40); WHITE BLOOD COUNT 17.5 10^3/uL (4.0-10.0)
[2022-05-21 06:38] LABS: ALBUMIN 2.3 G/DL (3.2-5.2); ALKALINE PHOSPHATASE 44 U/L (46-116); ALT/SGPT < 9 U/L (7.0-40); AST/SGOT 25 U/L (<34); BILIRUBIN,TOTAL 0.4 MG/DL (0.3-1.2); BLOOD UREA NITROGEN 13 MG/DL (9-23); CARBON DIOXIDE LEVEL 25 MMOL/L (20-31); CHLORIDE LEVEL 103 MMOL/L (98-107); CREATININE FOR GFR 2.28 MG/DL (0.55-1.30); GLOMERULAR FILTRATION RATE 22.5 (>39); GLUCOSE, FASTING 71 MG/DL (74-106); MAGNESIUM LEVEL 1.7 MG/DL (1.8-2.4); POTASSIUM SERUM 3.8 MMOL/L (3.5-5.1); SODIUM LEVEL 137 MMOL/L (136-145); TOTAL PROTEIN 4.6 G/DL (5.7-8.2)
[2022-05-21 07:13] LABS: ATYPICAL LYMPH 1 % (0-5); EOSINOPHILS 1 % (0-3); LYMPHOCYTES 13 % (16-44); METAMYELOCYTES 3 % (0-0); MONOCYTES 5 % (0-5); MYELOCYTES 3 % (0-0); NEUTROPHILS 70 % (28-66); PLATELET ESTIMATE NORMAL (NORMAL)
[2022-05-21 07:14] LABS: ANISOCYTOSIS 1+
[2022-05-21] MEDS: ADVAIR HFA 230/21MCG INHALER INH SCH ×2 (07:40→13:56)
[2022-05-21] MEDS: METAMUCIL (PSYLLIUM) PACKET PO SCH (07:52)
[2022-05-21] MEDS: ESCITALOPRAM OXALATE 10 MG TAB (LEXAPRO) PO SCH (07:53)
[2022-05-21] MEDS: METOCLOPRAMIDE 5 MG TAB PO SCH ×4 (07:53→20:15)
[2022-05-21] MEDS: LACTOBACILLUS ACIDOPHILUS CAP (BACID) PO SCH ×2 (07:53→17:48)
[2022-05-21] MEDS: HEPARIN SOD (PORCINE) 5000UNITS/ML 1ML VIAL/SYRINGE SQ SCH ×2 (07:54→20:15)
[2022-05-21] MEDS: PANTOPRAZOLE 40MG TAB (PROTONIX) PO SCH (07:54)
[2022-05-21 07:58] VITALS: BP_SYST 118; BP_SYST 90; BP_SYST 91; BP_DIAS 56; BP_DIAS 57; BP_DIAS 68
[2022-05-21 14:00] VITALS: BP 140/60
[2022-05-21 17:35] VITALS: BP_SYST 122; BP_SYST 88; BP_SYST 94; BP_DIAS 50; BP_DIAS 54; BP_DIAS 70
[2022-05-21] MEDS: ceFAZolin SOD 1 GM in D5W MINI-BAG PLUS 50 ML IV SCH (20:14)
[2022-05-21 20:15] VITALS: BP 132/50
[2022-05-21] MEDS: ASPIRIN 81MG ENTERIC TABLET PO SCH (20:15)
[2022-05-22 05:30] VITALS: BP_SYST 134; BP_SYST 86; BP_DIAS 56; BP_DIAS 58
[2022-05-22 06:00] VITALS: BP 112/60
[2022-05-22 06:22] LABS: HEMATOCRIT 34.9 % (36.0-47.0); MEAN CORPUSCULAR HEMOGLOBIN 29.3 pg (27.0-33.0); MEAN CORPUSCULAR HGB CONC 31.5 g/dl (32.0-36.5); MEAN CORPUSCULAR VOLUME 92.8 fl (80.0-96.0); PLATELET COUNT, AUTOMATED 254 10^3/uL (150-450); RED BLOOD COUNT 3.76 10^6/uL (4.00-5.40); WHITE BLOOD COUNT 17.1 10^3/uL (4.0-10.0)
[2022-05-22 06:46] LABS: ALBUMIN 2.4 G/DL (3.2-5.2); ALKALINE PHOSPHATASE 48 U/L (46-116); ALT/SGPT < 9 U/L (7.0-40); AST/SGOT 20 U/L (<34); BILIRUBIN,TOTAL 0.4 MG/DL (0.3-1.2); BLOOD UREA NITROGEN 19 MG/DL (9-23); CALCIUM LEVEL 9.2 MG/DL (8.3-10.6); CARBON DIOXIDE LEVEL 26 MMOL/L (20-31); CHLORIDE LEVEL 100 MMOL/L (98-107); CREATININE FOR GFR 2.91 MG/DL (0.55-1.30); GLUCOSE, FASTING 99 MG/DL (74-106); MAGNESIUM LEVEL 1.6 MG/DL (1.8-2.4); POTASSIUM SERUM 3.4 MMOL/L (3.5-5.1); SODIUM LEVEL 135 MMOL/L (136-145); TOTAL PROTEIN 4.6 G/DL (5.7-8.2)
[2022-05-22 07:11] LABS: ANISOCYTOSIS 1+; ATYPICAL LYMPH 1 % (0-5); EOSINOPHILS 2 % (0-3); LYMPHOCYTES 8 % (16-44); METAMYELOCYTES 1 % (0-0); MONOCYTES 8 % (0-5); NEUTROPHILS 77 % (28-66); PLATELET ESTIMATE NORMAL (NORMAL)
[2022-05-22] MEDS ORDERED: MAGNESIUM OXIDE 400MG TAB (MAG-OX) PO ONE (08:00)
[2022-05-22] MEDS ORDERED: POTASSIUM CHLORIDE 10MEQ SR TABLET PO ONE (08:00)
[2022-05-22] MEDS: METOCLOPRAMIDE 5 MG TAB PO SCH ×3 (08:07→17:18)
[2022-05-22] MEDS: PANTOPRAZOLE 40MG TAB (PROTONIX) PO SCH (08:07)
[2022-05-22] MEDS: LACTOBACILLUS ACIDOPHILUS CAP (BACID) PO SCH ×2 (08:07→17:18)
[2022-05-22] MEDS: ESCITALOPRAM OXALATE 10 MG TAB (LEXAPRO) PO SCH (08:07)
[2022-05-22] MEDS: HEPARIN SOD (PORCINE) 5000UNITS/ML 1ML VIAL/SYRINGE SQ SCH ×2 (08:08→20:31)
[2022-05-22] MEDS: METAMUCIL (PSYLLIUM) PACKET PO SCH (08:09)
[2022-05-22] MEDS: ONDANSETRON 4MG 2ML VIAL IV PRN ×2 (08:22→14:39)
[2022-05-22] MEDS: SUCRALFATE 1 GM TAB PO SCH ×2 (09:01→20:31)
[2022-05-22] MEDS ORDERED: GI COCKTAIL 50ML BTL(HYOSCYAMINE/MAALOX/LIDOCAINE VISCOUS)(1:3:1) PO ONE (13:00)
[2022-05-22] MEDS: ADVAIR HFA 230/21MCG INHALER INH SCH ×2 (13:57→20:10)
[2022-05-22 14:00] VITALS: BP_SYST 122; BP_SYST 126; BP_SYST 92; BP_SYST 99; BP_DIAS 58; BP_DIAS 60; BP_DIAS 63
[2022-05-22 19:49] VITALS: BP 116/58
[2022-05-22] MEDS: ONDANSETRON 4MG TAB PO SCH (20:31)
[2022-05-22] MEDS: ASPIRIN 81MG ENTERIC TABLET PO SCH (20:31)
[2022-05-22] MEDS: ceFAZolin SOD 1 GM in D5W MINI-BAG PLUS 50 ML IV SCH (20:32)
[2022-05-22 20:36] VITALS: BP_SYST 104; BP_SYST 128; BP_SYST 78; BP_DIAS 42; BP_DIAS 58; BP_DIAS 64
[2022-05-23 05:46] VITALS: BP_SYST 128; BP_SYST 72; BP_SYST 98; BP_DIAS 40; BP_DIAS 60; BP_DIAS 76
[2022-05-23] MEDS: LACTOBACILLUS ACIDOPHILUS CAP (BACID) PO SCH ×2 (05:47→18:36)
[2022-05-23] MEDS: ONDANSETRON 4MG TAB PO SCH ×3 (05:47→20:48)
[2022-05-23] MEDS: SUCRALFATE 1 GM TAB PO SCH ×2 (05:47→20:48)
[2022-05-23] MEDS: PANTOPRAZOLE 40MG TAB (PROTONIX) PO SCH (05:47)
[2022-05-23] MEDS: ESCITALOPRAM OXALATE 10 MG TAB (LEXAPRO) PO SCH (05:47)
[2022-05-23 05:58] VITALS: BP 115/54
[2022-05-23 06:28] LABS: BASO # 0.2 10^3/uL (0.0-0.2); BASO % 0.8 % (0.0-1.0); EOS # 0.4 10^3/uL (0.0-0.5); HEMATOCRIT 36.6 % (36.0-47.0); HEMOGLOBIN 11.6 g/dl (12.0-15.5); LYMPH # 2.5 10^3/uL (1.5-5.0); LYMPH % 13.6 % (24.0-44.0); MEAN CORPUSCULAR HEMOGLOBIN 29.7 pg (27.0-33.0); MEAN CORPUSCULAR HGB CONC 31.7 g/dl (32.0-36.5); MEAN CORPUSCULAR VOLUME 93.6 fl (80.0-96.0); MONO # 1.5 10^3/uL (0.0-0.8); NEUTROPHILS # 13.4 10^3/uL (1.5-8.5); NEUTROPHILS % 71.6 % (36.0-66.0); PLATELET COUNT, AUTOMATED 277 10^3/uL (150-450); RED BLOOD COUNT 3.91 10^6/uL (4.00-5.40); WHITE BLOOD COUNT 18.7 10^3/uL (4.0-10.0)
[2022-05-23 07:25] LABS: ALBUMIN 2.5 G/DL (3.2-5.2); ALKALINE PHOSPHATASE 48 U/L (46-116); ALT/SGPT < 9 U/L (7.0-40); AST/SGOT 22 U/L (<34); BILIRUBIN,TOTAL 0.5 MG/DL (0.3-1.2); BLOOD UREA NITROGEN 21 MG/DL (9-23); CALCIUM LEVEL 9.6 MG/DL (8.3-10.6); CARBON DIOXIDE LEVEL 25 MMOL/L (20-31); CHLORIDE LEVEL 99 MMOL/L (98-107); CREATININE FOR GFR 3.21 MG/DL (0.55-1.30); GLOMERULAR FILTRATION RATE 15.1 (>39); GLUCOSE, FASTING 83 MG/DL (74-106); MAGNESIUM LEVEL 1.6 MG/DL (1.8-2.4); POTASSIUM SERUM 4.3 MMOL/L (3.5-5.1); SODIUM LEVEL 135 MMOL/L (136-145); TOTAL PROTEIN 4.8 G/DL (5.7-8.2)
[2022-05-23] MEDS: ADVAIR HFA 230/21MCG INHALER INH SCH ×2 (08:08→20:00)
[2022-05-23] MEDS ORDERED: HEPARIN 1,000UNITS/ML 10ML VIAL (FOR RADIOLOGY & DIALYSIS ONLY) IV PRN (08:20)
[2022-05-23] MEDS ORDERED: SODIUM CHLORIDE 0.9% 1000ML IV PRN (08:20)
[2022-05-23] MEDS ORDERED: HEPARIN 1,000UNITS/ML 10ML VIAL (FOR RADIOLOGY & DIALYSIS ONLY) XX SCH (08:20)
[2022-05-23] MEDS: METAMUCIL (PSYLLIUM) PACKET PO SCH (09:00)
[2022-05-23] MEDS ORDERED: ALTEPLASE 2MG/2ML VIAL XX ONE ×2 (11:00)
[2022-05-23] MEDS: HEPARIN SOD (PORCINE) 5000UNITS/ML 1ML VIAL/SYRINGE SQ SCH ×2 (12:57→20:48)
[2022-05-23 14:00] VITALS: BP 90/50
[2022-05-23] MEDS ORDERED: GOLYTELY SOLN 4000 ML BTL PO ONE (15:00)
[2022-05-23] MEDS: NS 1,000 ML IV SCH (15:07)
[2022-05-23 20:06] VITALS: BP 112/62
[2022-05-23] MEDS: ceFAZolin SOD 1 GM in D5W MINI-BAG PLUS 50 ML IV SCH (20:48)
[2022-05-23] MEDS: ASPIRIN 81MG ENTERIC TABLET PO SCH (20:48)
[2022-05-24 05:31] VITALS: BP 116/82
[2022-05-24] MEDS: ONDANSETRON 4MG TAB PO SCH ×3 (05:45→20:24)
[2022-05-24 06:18] LABS: BASO # 0.1 10^3/uL (0.0-0.2); BASO % 0.9 % (0.0-1.0); EOS # 0.3 10^3/uL (0.0-0.5); EOS % 2.1 % (0.0-3.0); HEMATOCRIT 31.3 % (36.0-47.0); HEMOGLOBIN 9.9 g/dl (12.0-15.5); LYMPH # 2.1 10^3/uL (1.5-5.0); MEAN CORPUSCULAR HEMOGLOBIN 29.6 pg (27.0-33.0); MEAN CORPUSCULAR HGB CONC 31.6 g/dl (32.0-36.5); MEAN CORPUSCULAR VOLUME 93.7 fl (80.0-96.0); MONO # 1.2 10^3/uL (0.0-0.8); MONO % 8.7 % (2.0-8.0); NEUTROPHILS # 9.6 10^3/uL (1.5-8.5); NEUTROPHILS % 69.9 % (36.0-66.0); PLATELET COUNT, AUTOMATED 210 10^3/uL (150-450); RED BLOOD COUNT 3.34 10^6/uL (4.00-5.40); WHITE BLOOD COUNT 13.8 10^3/uL (4.0-10.0)
[2022-05-24 06:45] LABS: ALBUMIN 2.2 G/DL (3.2-5.2); ALKALINE PHOSPHATASE 41 U/L (46-116); ALT/SGPT < 9 U/L (7.0-40); AST/SGOT 23 U/L (<34); BILIRUBIN,TOTAL 0.4 MG/DL (0.3-1.2); BLOOD UREA NITROGEN 11 MG/DL (9-23); CALCIUM LEVEL 8.6 MG/DL (8.3-10.6); CARBON DIOXIDE LEVEL 27 MMOL/L (20-31); CHLORIDE LEVEL 101 MMOL/L (98-107); CREATININE FOR GFR 2.45 MG/DL (0.55-1.30); GLOMERULAR FILTRATION RATE 20.7 (>39); GLUCOSE, FASTING 81 MG/DL (74-106); MAGNESIUM LEVEL 1.5 MG/DL (1.8-2.4); POTASSIUM SERUM 3.6 MMOL/L (3.5-5.1); SODIUM LEVEL 138 MMOL/L (136-145); TOTAL PROTEIN 4.2 G/DL (5.7-8.2)
[2022-05-24] MEDS: NS 1,000 ML IV SCH (07:49)
[2022-05-24] MEDS ORDERED: LIDOCAINE 2% INJ 100 MG/5 ML SYRINGE As Ordered ONE (07:53)
[2022-05-24] MEDS ORDERED: propofoL 500 MG/50 ML VIAL As Ordered ONE (07:56)
[2022-05-24] MEDS ORDERED: fentaNYL 100 MCG/2 ML INJECTION As Ordered ONE (07:56)
[2022-05-24] MEDS: ADVAIR HFA 230/21MCG INHALER INH SCH ×2 (08:00→19:53)
[2022-05-24] MEDS ORDERED: MAG SULF 1GM/100ML (MAG RUN) 1 GM in IV 1 EA IV ONE (09:00)
[2022-05-24] MEDS: METAMUCIL (PSYLLIUM) PACKET PO SCH (09:00)
[2022-05-24] MEDS ORDERED: LR 1,000 ML IV SCH (09:10)
[2022-05-24] MEDS ORDERED: ONDANSETRON 4MG 2ML VIAL IV PRN (09:10)
[2022-05-24 10:00] VITALS: BP 116/62
[2022-05-24] MEDS: SUCRALFATE 1 GM TAB PO SCH ×2 (10:05→20:24)
[2022-05-24] MEDS: PANTOPRAZOLE 40MG TAB (PROTONIX) PO SCH (10:05)
[2022-05-24] MEDS: LACTOBACILLUS ACIDOPHILUS CAP (BACID) PO SCH ×2 (10:05→17:38)
[2022-05-24] MEDS: HEPARIN SOD (PORCINE) 5000UNITS/ML 1ML VIAL/SYRINGE SQ SCH ×2 (10:06→20:23)
[2022-05-24] MEDS: ESCITALOPRAM OXALATE 10 MG TAB (LEXAPRO) PO SCH (10:06)
[2022-05-24 12:38] LABS: HEMATOCRIT 31.3 % (36.0-47.0); HEMOGLOBIN 9.8 g/dl (12.0-15.5)
[2022-05-24 14:00] VITALS: BP_SYST 102; BP_SYST 96; BP_DIAS 58; BP_DIAS 62
[2022-05-24] MEDS: ceFAZolin SOD 1 GM in D5W MINI-BAG PLUS 50 ML IV SCH (20:20)
[2022-05-24] MEDS: ASPIRIN 81MG ENTERIC TABLET PO SCH (20:24)
[2022-05-24 21:10] VITALS: BP 100/72
[2022-05-24 21:18] VITALS: BP_SYST 103; BP_SYST 89; BP_SYST 94; BP_DIAS 48; BP_DIAS 49; BP_DIAS 50
[2022-05-25] MEDS: ONDANSETRON 4MG TAB PO SCH ×3 (05:05→22:19)
[2022-05-25 05:07] VITALS: BP_SYST 62; BP_SYST 78; BP_SYST 96; BP_DIAS 38; BP_DIAS 42; BP_DIAS 48; BP_DIAS 78
[2022-05-25] MEDS ORDERED: NS 1,000 ML IV ONE (05:40)
[2022-05-25 06:19] VITALS: BP 106/58
[2022-05-25 06:22] LABS: BASO # 0.1 10^3/uL (0.0-0.2); BASO % 0.8 % (0.0-1.0); EOS # 0.2 10^3/uL (0.0-0.5); EOS % 1.8 % (0.0-3.0); HEMATOCRIT 30.5 % (36.0-47.0); HEMOGLOBIN 9.6 g/dl (12.0-15.5); LYMPH # 1.5 10^3/uL (1.5-5.0); MEAN CORPUSCULAR HEMOGLOBIN 29.7 pg (27.0-33.0); MEAN CORPUSCULAR HGB CONC 31.5 g/dl (32.0-36.5); MEAN CORPUSCULAR VOLUME 94.4 fl (80.0-96.0); MONO # 0.9 10^3/uL (0.0-0.8); MONO % 8.4 % (2.0-8.0); NEUTROPHILS # 7.9 10^3/uL (1.5-8.5); NEUTROPHILS % 72.9 % (36.0-66.0); PLATELET COUNT, AUTOMATED 191 10^3/uL (150-450); RED BLOOD COUNT 3.23 10^6/uL (4.00-5.40); WHITE BLOOD COUNT 10.9 10^3/uL (4.0-10.0)
[2022-05-25 06:54] LABS: ALBUMIN 1.9 G/DL (3.2-5.2); ALKALINE PHOSPHATASE 36 U/L (46-116); ALT/SGPT < 9 U/L (7.0-40); AST/SGOT 22 U/L (<34); BILIRUBIN,TOTAL 0.4 MG/DL (0.3-1.2); BLOOD UREA NITROGEN 13 MG/DL (9-23); CALCIUM LEVEL 8.9 MG/DL (8.3-10.6); CARBON DIOXIDE LEVEL 24 MMOL/L (20-31); CHLORIDE LEVEL 104 MMOL/L (98-107); CREATININE FOR GFR 2.81 MG/DL (0.55-1.30); GLOMERULAR FILTRATION RATE 17.7 (>39); GLUCOSE, FASTING 83 MG/DL (74-106); MAGNESIUM LEVEL 1.5 MG/DL (1.8-2.4); POTASSIUM SERUM 3.7 MMOL/L (3.5-5.1); SODIUM LEVEL 139 MMOL/L (136-145); TOTAL PROTEIN 3.9 G/DL (5.7-8.2)
[2022-05-25] MEDS: ADVAIR HFA 230/21MCG INHALER INH SCH ×2 (07:47→20:45)
[2022-05-25] MEDS ORDERED: MAG SULF 1GM/100ML (MAG RUN) 1 GM in IV 1 EA IV ONE (08:00)
[2022-05-25] MEDS: HEPARIN SOD (PORCINE) 5000UNITS/ML 1ML VIAL/SYRINGE SQ SCH ×2 (08:32→19:48)
[2022-05-25] MEDS: ESCITALOPRAM OXALATE 10 MG TAB (LEXAPRO) PO SCH (08:32)
[2022-05-25] MEDS: SUCRALFATE 1 GM TAB PO SCH ×2 (08:32→19:47)
[2022-05-25] MEDS: LACTOBACILLUS ACIDOPHILUS CAP (BACID) PO SCH ×2 (08:32→18:27)
[2022-05-25] MEDS: PANTOPRAZOLE 40MG TAB (PROTONIX) PO SCH (08:32)
[2022-05-25] MEDS: METAMUCIL (PSYLLIUM) PACKET PO SCH (08:33)
[2022-05-25 14:00] VITALS: BP_SYST 106; BP_SYST 108; BP_SYST 86; BP_DIAS 42; BP_DIAS 50; BP_DIAS 52
[2022-05-25] MEDS: ASPIRIN 81MG ENTERIC TABLET PO SCH (19:46)
[2022-05-25] MEDS: ceFAZolin SOD 1 GM in D5W MINI-BAG PLUS 50 ML IV SCH (19:55)
[2022-05-25 22:00] VITALS: BP 118/72
[2022-05-25 22:20] VITALS: BP_SYST 100; BP_SYST 108; BP_SYST 78; BP_DIAS 46; BP_DIAS 48; BP_DIAS 50
[2022-05-26] MEDS: ESCITALOPRAM OXALATE 10 MG TAB (LEXAPRO) PO SCH (05:39)
[2022-05-26] MEDS: SUCRALFATE 1 GM TAB PO SCH ×2 (05:39→20:10)
[2022-05-26] MEDS: LACTOBACILLUS ACIDOPHILUS CAP (BACID) PO SCH ×2 (05:39→17:50)
[2022-05-26] MEDS: PANTOPRAZOLE 40MG TAB (PROTONIX) PO SCH (05:39)
[2022-05-26] MEDS: ASPIRIN 81MG ENTERIC TABLET PO SCH (05:39)
[2022-05-26] MEDS: ONDANSETRON 4MG TAB PO SCH ×3 (05:39→21:05)
[2022-05-26] MEDS: HEPARIN SOD (PORCINE) 5000UNITS/ML 1ML VIAL/SYRINGE SQ SCH ×2 (05:40→20:11)
[2022-05-26 05:44] VITALS: BP_SYST 110; BP_SYST 130; BP_SYST 78; BP_DIAS 56; BP_DIAS 58
[2022-05-26] MEDS ORDERED: HEPARIN 1,000UNITS/ML 10ML VIAL (FOR RADIOLOGY & DIALYSIS ONLY) XX SCH (06:00)
[2022-05-26] MEDS ORDERED: HEPARIN 1,000UNITS/ML 10ML VIAL (FOR RADIOLOGY & DIALYSIS ONLY) IV PRN (06:00)
[2022-05-26] MEDS ORDERED: SODIUM CHLORIDE 0.9% 1000ML IV PRN (06:00)
[2022-05-26 06:50] LABS: BASO # 0.1 10^3/uL (0.0-0.2); EOS # 0.2 10^3/uL (0.0-0.5); EOS % 1.4 % (0.0-3.0); HEMOGLOBIN 9.6 g/dl (12.0-15.5); LYMPH # 1.5 10^3/uL (1.5-5.0); LYMPH % 13.9 % (24.0-44.0); MEAN CORPUSCULAR HEMOGLOBIN 29.3 pg (27.0-33.0); MEAN CORPUSCULAR VOLUME 94.5 fl (80.0-96.0); MONO # 0.8 10^3/uL (0.0-0.8); MONO % 7.3 % (2.0-8.0); NEUTROPHILS % 75.5 % (36.0-66.0); PLATELET COUNT, AUTOMATED 195 10^3/uL (150-450); RED BLOOD COUNT 3.28 10^6/uL (4.00-5.40); WHITE BLOOD COUNT 10.6 10^3/uL (4.0-10.0)
[2022-05-26 07:13] LABS: CHLORIDE LEVEL 105 MMOL/L (98-107); POTASSIUM SERUM 4.1 MMOL/L (3.5-5.1); SODIUM LEVEL 139 MMOL/L (136-145)
[2022-05-26 07:14] LABS: CARBON DIOXIDE LEVEL 25 MMOL/L (20-31)
[2022-05-26 07:18] LABS: BLOOD UREA NITROGEN 16 MG/DL (9-23)
[2022-05-26 07:19] LABS: ALKALINE PHOSPHATASE 37 U/L (46-116); CALCIUM LEVEL 9.1 MG/DL (8.3-10.6); GLUCOSE, FASTING 82 MG/DL (74-106); MAGNESIUM LEVEL 1.9 MG/DL (1.8-2.4)
[2022-05-26 07:20] LABS: BILIRUBIN,TOTAL 0.3 MG/DL (0.3-1.2)
[2022-05-26 07:21] LABS: AST/SGOT 21 U/L (<34)
[2022-05-26 07:25] LABS: ALT/SGPT < 9 U/L (7.0-40)
[2022-05-26] MEDS: ADVAIR HFA 230/21MCG INHALER INH SCH ×2 (07:40→19:48)
[2022-05-26] MEDS: METAMUCIL (PSYLLIUM) PACKET PO SCH (09:00)
[2022-05-26 14:00] VITALS: BP 104/52
[2022-05-26 15:22] VITALS: BP 70/38
[2022-05-26 18:12] VITALS: BP 112/60
[2022-05-26] MEDS: ceFAZolin SOD 1 GM in D5W MINI-BAG PLUS 50 ML IV SCH (20:10)
[2022-05-26 20:34] VITALS: BP_SYST 102; BP_SYST 98; BP_DIAS 52; BP_DIAS 56
[2022-05-27] MEDS: ONDANSETRON 4MG TAB PO SCH ×3 (05:06→21:23)
[2022-05-27 05:51] VITALS: BP 106/64
[2022-05-27 06:18] LABS: BASO # 0.1 10^3/uL (0.0-0.2); BASO % 0.9 % (0.0-1.0); EOS # 0.1 10^3/uL (0.0-0.5); EOS % 0.8 % (0.0-3.0); HEMOGLOBIN 9.2 g/dl (12.0-15.5); LYMPH # 1.4 10^3/uL (1.5-5.0); LYMPH % 10.9 % (24.0-44.0); MEAN CORPUSCULAR HEMOGLOBIN 29.8 pg (27.0-33.0); MEAN CORPUSCULAR HGB CONC 31.7 g/dl (32.0-36.5); MEAN CORPUSCULAR VOLUME 93.9 fl (80.0-96.0); MONO % 8.2 % (2.0-8.0); NEUTROPHILS # 9.7 10^3/uL (1.5-8.5); NEUTROPHILS % 78.4 % (36.0-66.0); PLATELET COUNT, AUTOMATED 196 10^3/uL (150-450); RED BLOOD COUNT 3.09 10^6/uL (4.00-5.40); WHITE BLOOD COUNT 12.4 10^3/uL (4.0-10.0)
[2022-05-27 06:33] LABS: CHLORIDE LEVEL 102 MMOL/L (98-107); POTASSIUM SERUM 3.6 MMOL/L (3.5-5.1); SODIUM LEVEL 138 MMOL/L (136-145)
[2022-05-27 06:34] LABS: ALBUMIN 1.9 G/DL (3.2-5.2); CARBON DIOXIDE LEVEL 30 MMOL/L (20-31)
[2022-05-27 06:38] LABS: CALCIUM LEVEL 8.5 MG/DL (8.3-10.6); GLUCOSE, FASTING 84 MG/DL (74-106)
[2022-05-27 06:39] LABS: BLOOD UREA NITROGEN 8 MG/DL (9-23); MAGNESIUM LEVEL 1.6 MG/DL (1.8-2.4)
[2022-05-27 06:40] LABS: ALKALINE PHOSPHATASE 39 U/L (46-116); TOTAL PROTEIN 3.9 G/DL (5.7-8.2)
[2022-05-27 06:41] LABS: AST/SGOT 24 U/L (<34); BILIRUBIN,TOTAL 0.4 MG/DL (0.3-1.2); CREATININE FOR GFR 1.79 MG/DL (0.55-1.30); GLOMERULAR FILTRATION RATE 29.7 (>39)
[2022-05-27 06:48] LABS: ALT/SGPT < 9 U/L (7.0-40)
[2022-05-27] MEDS: ADVAIR HFA 230/21MCG INHALER INH SCH ×2 (07:49→19:08)
[2022-05-27] MEDS: LACTOBACILLUS ACIDOPHILUS CAP (BACID) PO SCH ×3 (08:00→18:36)
[2022-05-27] MEDS: MAGNESIUM OXIDE 400MG TAB (MAG-OX) PO SCH ×3 (08:53→21:22)
[2022-05-27] MEDS: SUCRALFATE 1 GM TAB PO SCH ×3 (08:54→21:22)
[2022-05-27] MEDS: PANTOPRAZOLE 40MG TAB (PROTONIX) PO SCH ×2 (08:54→09:00)
[2022-05-27] MEDS: HEPARIN SOD (PORCINE) 5000UNITS/ML 1ML VIAL/SYRINGE SQ SCH ×2 (08:54→21:23)
[2022-05-27] MEDS: ESCITALOPRAM OXALATE 10 MG TAB (LEXAPRO) PO SCH ×2 (08:54→09:00)
[2022-05-27] MEDS: METAMUCIL (PSYLLIUM) PACKET PO SCH (08:54)
[2022-05-27 08:59] VITALS: BP 111/52
[2022-05-27] MEDS: ONDANSETRON 4MG 2ML VIAL IV PRN (09:11)
[2022-05-27] MEDS: MIDODRINE 2.5 MG TAB PO SCH ×3 (12:00→15:45)
[2022-05-27 12:57] LABS: HEPATITIS B SURFACE ANTIBODY NEGATIVE (POSITIVE)
[2022-05-27 13:10] LABS: HEPATITIS B SURFACE ANTIGEN NEGATIVE (NEGATIVE)
[2022-05-27 13:32] LABS: HEPATITIS B CORE ANTIBODY IGM NEGATIVE (NEGATIVE)
[2022-05-27 14:00] VITALS: BP 118/54
[2022-05-27 15:28] VITALS: BP 126/54
[2022-05-27] MEDS: ACETAMINOPHEN TAB 650MG DOSE (2X325MG) PO PRN (18:38)
[2022-05-27 21:20] VITALS: BP_SYST 110; BP_SYST 118; BP_SYST 120; BP_DIAS 64; BP_DIAS 68; BP_DIAS 70
[2022-05-27] MEDS: ASPIRIN 81MG ENTERIC TABLET PO SCH (21:22)
[2022-05-27] MEDS: ceFAZolin SOD 1 GM in D5W MINI-BAG PLUS 50 ML IV SCH (21:22)
[2022-05-28] VITALS (8 sets, daily range): BP systolic 64–130; BP diastolic 42–59
[2022-05-28] MEDS: ONDANSETRON 4MG TAB PO SCH ×3 (05:42→20:49)
[2022-05-28] MEDS: ACETAMINOPHEN TAB 650MG DOSE (2X325MG) PO PRN (05:43)
[2022-05-28] MEDS ORDERED: HEPARIN 1,000UNITS/ML 10ML VIAL (FOR RADIOLOGY & DIALYSIS ONLY) IV PRN (06:00)
[2022-05-28] MEDS ORDERED: HEPARIN 1,000UNITS/ML 10ML VIAL (FOR RADIOLOGY & DIALYSIS ONLY) XX SCH (06:00)
[2022-05-28] MEDS ORDERED: SODIUM CHLORIDE 0.9% 1000ML IV PRN (06:00)
[2022-05-28] MEDS: ADVAIR HFA 230/21MCG INHALER INH SCH ×2 (07:39→19:09)
[2022-05-28] MEDS: HEPARIN SOD (PORCINE) 5000UNITS/ML 1ML VIAL/SYRINGE SQ SCH ×2 (07:48→20:48)
[2022-05-28] MEDS: PANTOPRAZOLE 40MG TAB (PROTONIX) PO SCH (07:48)
[2022-05-28] MEDS: METAMUCIL (PSYLLIUM) PACKET PO SCH ×2 (07:48→07:50)
[2022-05-28] MEDS: SUCRALFATE 1 GM TAB PO SCH ×2 (07:48→20:49)
[2022-05-28] MEDS: MIDODRINE 2.5 MG TAB PO SCH ×2 (07:48→12:42)
[2022-05-28] MEDS: ESCITALOPRAM OXALATE 10 MG TAB (LEXAPRO) PO SCH (07:49)
[2022-05-28] MEDS: LACTOBACILLUS ACIDOPHILUS CAP (BACID) PO SCH ×2 (07:49→17:48)
[2022-05-28] MEDS: MAGNESIUM OXIDE 400MG TAB (MAG-OX) PO SCH ×3 (07:49→20:49)
[2022-05-28] MEDS ORDERED: MIDODRINE 5 MG TAB PO SCH (16:00)
[2022-05-28] MEDS: ONDANSETRON 4MG 2ML VIAL IV PRN (17:56)
[2022-05-28] MEDS: ceFAZolin SOD 1 GM in D5W MINI-BAG PLUS 50 ML IV SCH (20:48)
[2022-05-28] MEDS: ASPIRIN 81MG ENTERIC TABLET PO SCH (20:49)
[2022-05-29] VITALS (9 sets, daily range): BP systolic 78–178; BP diastolic 36–74
[2022-05-29] MEDS: ONDANSETRON 4MG TAB PO SCH ×3 (05:02→21:27)
[2022-05-29 06:30] LABS: ALBUMIN 1.8 G/DL (3.2-5.2); CALCIUM LEVEL 8.8 MG/DL (8.3-10.6); CREATININE FOR GFR 1.61 MG/DL (0.55-1.30); GLOMERULAR FILTRATION RATE 33.6 (>39); PHOSPHORUS LEVEL 2.8 MG/DL (2.4-5.1); POTASSIUM SERUM 3.4 MMOL/L (3.5-5.1)
[2022-05-29 06:40] LABS: BASO # 0.1 10^3/uL (0.0-0.2); BASO % 1.1 % (0.0-1.0); EOS # 0.1 10^3/uL (0.0-0.5); EOS % 1.3 % (0.0-3.0); HEMATOCRIT 29.3 % (36.0-47.0); HEMOGLOBIN 9.3 g/dl (12.0-15.5); LYMPH # 1.6 10^3/uL (1.5-5.0); LYMPH % 14.1 % (24.0-44.0); MEAN CORPUSCULAR HEMOGLOBIN 30.1 pg (27.0-33.0); MEAN CORPUSCULAR HGB CONC 31.7 g/dl (32.0-36.5); MEAN CORPUSCULAR VOLUME 94.8 fl (80.0-96.0); MONO # 1.2 10^3/uL (0.0-0.8); MONO % 10.5 % (2.0-8.0); NEUTROPHILS # 8.1 10^3/uL (1.5-8.5); NEUTROPHILS % 72.6 % (36.0-66.0); PLATELET COUNT, AUTOMATED 220 10^3/uL (150-450); RED BLOOD COUNT 3.09 10^6/uL (4.00-5.40); WHITE BLOOD COUNT 11.2 10^3/uL (4.0-10.0)
[2022-05-29] MEDS ORDERED: POTASSIUM CHLORIDE 10MEQ SR TABLET PO ONE (07:30)
[2022-05-29] MEDS: ADVAIR HFA 230/21MCG INHALER INH SCH ×2 (07:38→19:36)
[2022-05-29] MEDS: LACTOBACILLUS ACIDOPHILUS CAP (BACID) PO SCH ×2 (08:00→17:29)
[2022-05-29] MEDS: METAMUCIL (PSYLLIUM) PACKET PO SCH (09:00)
[2022-05-29] MEDS: ONDANSETRON 4MG 2ML VIAL IV PRN (09:20)
[2022-05-29] MEDS: SUCRALFATE 1 GM TAB PO SCH ×2 (09:53→21:27)
[2022-05-29] MEDS: ESCITALOPRAM OXALATE 10 MG TAB (LEXAPRO) PO SCH (09:54)
[2022-05-29] MEDS: MIDODRINE 5 MG TAB PO SCH ×3 (09:54→15:56)
[2022-05-29] MEDS: PANTOPRAZOLE 40MG TAB (PROTONIX) PO SCH (09:54)
[2022-05-29] MEDS: HEPARIN SOD (PORCINE) 5000UNITS/ML 1ML VIAL/SYRINGE SQ SCH ×2 (09:55→21:27)
[2022-05-29] MEDS: ASPIRIN 81MG ENTERIC TABLET PO SCH (21:27)
[2022-05-30 06:00] VITALS: BP 144/58
[2022-05-30] MEDS: ONDANSETRON 4MG TAB PO SCH ×3 (06:00→20:45)
[2022-05-30 06:13] LABS: BASO # 0.1 10^3/uL (0.0-0.2); BASO % 1.1 % (0.0-1.0); EOS # 0.1 10^3/uL (0.0-0.5); EOS % 1.5 % (0.0-3.0); HEMOGLOBIN 8.5 g/dl (12.0-15.5); LYMPH # 1.4 10^3/uL (1.5-5.0); MEAN CORPUSCULAR HEMOGLOBIN 29.5 pg (27.0-33.0); MEAN CORPUSCULAR HGB CONC 30.4 g/dl (32.0-36.5); MEAN CORPUSCULAR VOLUME 97.2 fl (80.0-96.0); MONO # 0.8 10^3/uL (0.0-0.8); MONO % 9.6 % (2.0-8.0); NEUTROPHILS % 71.3 % (36.0-66.0); PLATELET COUNT, AUTOMATED 237 10^3/uL (150-450); RED BLOOD COUNT 2.88 10^6/uL (4.00-5.40); WHITE BLOOD COUNT 8.5 10^3/uL (4.0-10.0)
[2022-05-30 06:39] VITALS: BP_SYST 104; BP_SYST 124; BP_SYST 72; BP_DIAS 50; BP_DIAS 52; BP_DIAS 58
[2022-05-30 07:06] LABS: ALBUMIN 2.5 G/DL (3.2-5.2); CREATININE FOR GFR 2.16 MG/DL (0.55-1.30); GLOMERULAR FILTRATION RATE 23.9 (>39); PHOSPHORUS LEVEL 3.2 MG/DL (2.4-5.1); POTASSIUM SERUM 4.1 MMOL/L (3.5-5.1)
[2022-05-30] MEDS: LACTOBACILLUS ACIDOPHILUS CAP (BACID) PO SCH ×2 (07:37→17:37)
[2022-05-30] MEDS: PANTOPRAZOLE 40MG TAB (PROTONIX) PO SCH (07:39)
[2022-05-30] MEDS: ESCITALOPRAM OXALATE 10 MG TAB (LEXAPRO) PO SCH (07:40)
[2022-05-30] MEDS: MIDODRINE 5 MG TAB PO SCH ×3 (07:41→15:45)
[2022-05-30] MEDS: METAMUCIL (PSYLLIUM) PACKET PO SCH (07:43)
[2022-05-30] MEDS: ADVAIR HFA 230/21MCG INHALER INH SCH ×2 (07:59→18:14)
[2022-05-30] MEDS: SUCRALFATE 1 GM TAB PO SCH ×2 (08:02→20:45)
[2022-05-30] MEDS: HEPARIN SOD (PORCINE) 5000UNITS/ML 1ML VIAL/SYRINGE SQ SCH ×2 (08:02→20:46)
[2022-05-30 08:48] VITALS: BP 110/50
[2022-05-30] MEDS ORDERED: SODIUM CHLORIDE 0.9% 1000ML IV PRN (10:15)
[2022-05-30] MEDS ORDERED: HEPARIN 1,000UNITS/ML 10ML VIAL (FOR RADIOLOGY & DIALYSIS ONLY) IV PRN (10:15)
[2022-05-30] MEDS ORDERED: HEPARIN 1,000UNITS/ML 10ML VIAL (FOR RADIOLOGY & DIALYSIS ONLY) XX SCH (10:15)
[2022-05-30 15:45] VITALS: BP 120/62
[2022-05-30] MEDS: ASPIRIN 81MG ENTERIC TABLET PO SCH (20:45)
[2022-05-30 20:55] VITALS: BP 132/64
[2022-05-31] VITALS (7 sets, daily range): BP systolic 74–192; BP diastolic 48–80
[2022-05-31] MEDS: ONDANSETRON 4MG TAB PO SCH ×3 (05:36→21:31)
[2022-05-31 06:07] LABS: BASO # 0.1 10^3/uL (0.0-0.2); BASO % 0.9 % (0.0-1.0); EOS # 0.1 10^3/uL (0.0-0.5); EOS % 1.8 % (0.0-3.0); HEMOGLOBIN 8.5 g/dl (12.0-15.5); LYMPH # 1.6 10^3/uL (1.5-5.0); LYMPH % 20.9 % (24.0-44.0); MEAN CORPUSCULAR HEMOGLOBIN 29.5 pg (27.0-33.0); MEAN CORPUSCULAR HGB CONC 30.4 g/dl (32.0-36.5); MEAN CORPUSCULAR VOLUME 97.2 fl (80.0-96.0); MONO # 0.8 10^3/uL (0.0-0.8); MONO % 10.8 % (2.0-8.0); NEUTROPHILS # 5.1 10^3/uL (1.5-8.5); NEUTROPHILS % 65.2 % (36.0-66.0); PLATELET COUNT, AUTOMATED 261 10^3/uL (150-450); RED BLOOD COUNT 2.88 10^6/uL (4.00-5.40); WHITE BLOOD COUNT 7.8 10^3/uL (4.0-10.0)
[2022-05-31 06:40] LABS: ALBUMIN 2.4 G/DL (3.2-5.2); CALCIUM LEVEL 10.1 MG/DL (8.3-10.6); CREATININE FOR GFR 1.74 MG/DL (0.55-1.30); GLOMERULAR FILTRATION RATE 30.7 (>39); POTASSIUM SERUM 4.5 MMOL/L (3.5-5.1)
[2022-05-31] MEDS: ADVAIR HFA 230/21MCG INHALER INH SCH ×2 (07:29→19:35)
[2022-05-31] MEDS: LACTOBACILLUS ACIDOPHILUS CAP (BACID) PO SCH ×2 (08:50→17:31)
[2022-05-31] MEDS: MIDODRINE 5 MG TAB PO SCH ×3 (08:50→15:25)
[2022-05-31] MEDS: HEPARIN SOD (PORCINE) 5000UNITS/ML 1ML VIAL/SYRINGE SQ SCH ×2 (08:50→21:30)
[2022-05-31] MEDS: ESCITALOPRAM OXALATE 10 MG TAB (LEXAPRO) PO SCH (08:50)
[2022-05-31] MEDS: PANTOPRAZOLE 40MG TAB (PROTONIX) PO SCH (08:50)
[2022-05-31] MEDS: SUCRALFATE 1 GM TAB PO SCH ×2 (08:50→21:31)
[2022-05-31] MEDS: METAMUCIL (PSYLLIUM) PACKET PO SCH (08:51)
[2022-05-31 11:25] LABS: CORTISOL AM 11.3 UG/DL (4.3-22.4)
[2022-05-31] MEDS: ASPIRIN 81MG ENTERIC TABLET PO SCH (21:31)
[2022-06-01] MEDS: ONDANSETRON 4MG TAB PO SCH ×3 (05:52→21:23)
[2022-06-01 06:00] VITALS: BP 130/62
[2022-06-01 06:05] LABS: BASO # 0.1 10^3/uL (0.0-0.2); BASO % 1.1 % (0.0-1.0); EOS # 0.1 10^3/uL (0.0-0.5); EOS % 1.5 % (0.0-3.0); HEMATOCRIT 27.8 % (36.0-47.0); HEMOGLOBIN 8.5 g/dl (12.0-15.5); LYMPH # 1.5 10^3/uL (1.5-5.0); LYMPH % 21.2 % (24.0-44.0); MEAN CORPUSCULAR HEMOGLOBIN 29.9 pg (27.0-33.0); MEAN CORPUSCULAR HGB CONC 30.6 g/dl (32.0-36.5); MEAN CORPUSCULAR VOLUME 97.9 fl (80.0-96.0); MONO # 0.8 10^3/uL (0.0-0.8); MONO % 11.1 % (2.0-8.0); NEUTROPHILS # 4.7 10^3/uL (1.5-8.5); NEUTROPHILS % 64.7 % (36.0-66.0); PLATELET COUNT, AUTOMATED 247 10^3/uL (150-450); RED BLOOD COUNT 2.84 10^6/uL (4.00-5.40); WHITE BLOOD COUNT 7.3 10^3/uL (4.0-10.0)
[2022-06-01 06:31] LABS: ALBUMIN 2.3 G/DL (3.2-5.2); CALCIUM LEVEL 10.4 MG/DL (8.3-10.6); CREATININE FOR GFR 2.16 MG/DL (0.55-1.30); GLOMERULAR FILTRATION RATE 23.9 (>39); PHOSPHORUS LEVEL 3.8 MG/DL (2.4-5.1); POTASSIUM SERUM 4.2 MMOL/L (3.5-5.1)
[2022-06-01] MEDS: ADVAIR HFA 230/21MCG INHALER INH SCH ×2 (07:52→20:00)
[2022-06-01] MEDS: METAMUCIL (PSYLLIUM) PACKET PO SCH ×2 (09:00→09:11)
[2022-06-01] MEDS: MIDODRINE 5 MG TAB PO SCH ×3 (09:11→15:39)
[2022-06-01] MEDS: HEPARIN SOD (PORCINE) 5000UNITS/ML 1ML VIAL/SYRINGE SQ SCH ×2 (09:11→21:23)
[2022-06-01] MEDS: LACTOBACILLUS ACIDOPHILUS CAP (BACID) PO SCH ×2 (09:12→17:49)
[2022-06-01] MEDS: ESCITALOPRAM OXALATE 10 MG TAB (LEXAPRO) PO SCH (09:12)
[2022-06-01] MEDS: PANTOPRAZOLE 40MG TAB (PROTONIX) PO SCH (09:12)
[2022-06-01] MEDS: SUCRALFATE 1 GM TAB PO SCH ×2 (09:12→21:23)
[2022-06-01 13:45] VITALS: BP_SYST 145; BP_SYST 190; BP_SYST 98; BP_DIAS 62; BP_DIAS 72; BP_DIAS 78
[2022-06-01 14:00] VITALS: BP 172/92
[2022-06-01 21:00] VITALS: BP 166/70
[2022-06-01] MEDS: ASPIRIN 81MG ENTERIC TABLET PO SCH (21:23)
[2022-06-02 05:40] VITALS: BP 138/60
[2022-06-02] MEDS: ONDANSETRON 4MG TAB PO SCH ×3 (05:53→21:35)
[2022-06-02] MEDS: ESCITALOPRAM OXALATE 10 MG TAB (LEXAPRO) PO SCH (05:54)
[2022-06-02] MEDS: LACTOBACILLUS ACIDOPHILUS CAP (BACID) PO SCH ×2 (05:54→18:00)
[2022-06-02] MEDS: SUCRALFATE 1 GM TAB PO SCH ×2 (05:54→21:35)
[2022-06-02] MEDS: PANTOPRAZOLE 40MG TAB (PROTONIX) PO SCH (05:54)
[2022-06-02] MEDS: HEPARIN SOD (PORCINE) 5000UNITS/ML 1ML VIAL/SYRINGE SQ SCH ×2 (05:54→21:35)
[2022-06-02] MEDS: METAMUCIL (PSYLLIUM) PACKET PO SCH (05:55)
[2022-06-02 06:02] VITALS: BP 144/72
[2022-06-02] MEDS: MIDODRINE 5 MG TAB PO SCH ×4 (06:02→16:00)
[2022-06-02] MEDS ORDERED: HEPARIN 1,000UNITS/ML 10ML VIAL (FOR RADIOLOGY & DIALYSIS ONLY) IV PRN (06:40)
[2022-06-02] MEDS ORDERED: HEPARIN 1,000UNITS/ML 10ML VIAL (FOR RADIOLOGY & DIALYSIS ONLY) XX SCH (06:40)
[2022-06-02] MEDS ORDERED: SODIUM CHLORIDE 0.9% 1000ML IV PRN (06:40)
[2022-06-02] MEDS: ADVAIR HFA 230/21MCG INHALER INH SCH ×2 (06:43→20:00)
[2022-06-02] MEDS ORDERED: IRON SUCROSE 100MG 5ML VIAL IV SCH (06:45)
[2022-06-02] MEDS ORDERED: DARBEPOETIN 100MCG/0.5ML *DIALYSIS* SYRINGE IV SCH (06:45)
[2022-06-02 10:27] LABS: HEMATOCRIT 29.8 % (36.0-47.0); HEMOGLOBIN 9.1 g/dl (12.0-15.5); MEAN CORPUSCULAR HEMOGLOBIN 29.6 pg (27.0-33.0); MEAN CORPUSCULAR HGB CONC 30.5 g/dl (32.0-36.5); MEAN CORPUSCULAR VOLUME 97.1 fl (80.0-96.0); PLATELET COUNT, AUTOMATED 243 10^3/uL (150-450); RED BLOOD COUNT 3.07 10^6/uL (4.00-5.40); WHITE BLOOD COUNT 6.6 10^3/uL (4.0-10.0)
[2022-06-02 10:50] VITALS: BP 122/66
[2022-06-02 10:55] LABS: ALBUMIN 2.5 G/DL (3.2-5.2); ALKALINE PHOSPHATASE 47 U/L (46-116); ALT/SGPT < 9 U/L (7.0-40); AST/SGOT 25 U/L (<34); BILIRUBIN,TOTAL 0.5 MG/DL (0.3-1.2); BLOOD UREA NITROGEN 14 MG/DL (9-23); CALCIUM LEVEL 10.8 MG/DL (8.3-10.6); CARBON DIOXIDE LEVEL 28 MMOL/L (20-31); CHLORIDE LEVEL 104 MMOL/L (98-107); CREATININE FOR GFR 2.28 MG/DL (0.55-1.30); GLOMERULAR FILTRATION RATE 22.5 (>39); GLUCOSE, FASTING 77 MG/DL (74-106); POTASSIUM SERUM 4.6 MMOL/L (3.5-5.1); SODIUM LEVEL 137 MMOL/L (136-145); TOTAL PROTEIN 4.7 G/DL (5.7-8.2)
[2022-06-02 16:00] VITALS: BP 138/58
[2022-06-02 17:24] VITALS: BP_SYST 112; BP_SYST 132; BP_SYST 144; BP_DIAS 64; BP_DIAS 68; BP_DIAS 76
[2022-06-02] MEDS: ASPIRIN 81MG ENTERIC TABLET PO SCH (21:35)
[2022-06-02 21:45] VITALS: BP 135/85
[2022-06-03] MEDS: ONDANSETRON 4MG TAB PO SCH (05:47)
[2022-06-03 05:52] VITALS: BP 138/70
[2022-06-03 06:19] LABS: HEMATOCRIT 29.6 % (36.0-47.0); HEMOGLOBIN 8.9 g/dl (12.0-15.5); MEAN CORPUSCULAR HEMOGLOBIN 29.4 pg (27.0-33.0); MEAN CORPUSCULAR HGB CONC 30.1 g/dl (32.0-36.5); MEAN CORPUSCULAR VOLUME 97.7 fl (80.0-96.0); PLATELET COUNT, AUTOMATED 226 10^3/uL (150-450); RED BLOOD COUNT 3.03 10^6/uL (4.00-5.40); WHITE BLOOD COUNT 6.2 10^3/uL (4.0-10.0)
[2022-06-03] MEDS: ADVAIR HFA 230/21MCG INHALER INH SCH (08:00)
[2022-06-03] MEDS: MIDODRINE 5 MG TAB PO SCH ×2 (08:00→12:00)
[2022-06-03 08:01] LABS: ALBUMIN 2.4 G/DL (3.2-5.2); BILIRUBIN,TOTAL 0.4 MG/DL (0.3-1.2); CALCIUM LEVEL 10.8 MG/DL (8.3-10.6); CREATININE FOR GFR 1.73 MG/DL (0.55-1.30); GLOMERULAR FILTRATION RATE 30.9 (>39); POTASSIUM SERUM 4.4 MMOL/L (3.5-5.1); TOTAL PROTEIN 4.4 G/DL (5.7-8.2)
[2022-06-03] MEDS: ESCITALOPRAM OXALATE 10 MG TAB (LEXAPRO) PO SCH (08:43)
[2022-06-03] MEDS: SUCRALFATE 1 GM TAB PO SCH (08:43)
[2022-06-03] MEDS: LACTOBACILLUS ACIDOPHILUS CAP (BACID) PO SCH (08:44)
[2022-06-03] MEDS: PANTOPRAZOLE 40MG TAB (PROTONIX) PO SCH (08:44)
[2022-06-03] MEDS: HEPARIN SOD (PORCINE) 5000UNITS/ML 1ML VIAL/SYRINGE SQ SCH (08:44)
[2022-06-03] MEDS: METAMUCIL (PSYLLIUM) PACKET PO SCH (08:44)
[2022-06-03] MEDS ORDERED: ONDA-83 PO (10:08)
[2022-06-03] MEDS ORDERED: META1POW PO (10:08)
[2022-06-03] MEDS ORDERED: SUCR1TA PO (10:08)
[2022-06-03] MEDS ORDERED: PANT40TA29 PO (10:08)
[2022-06-03] MEDS ORDERED: MIDO5TA PO (10:08)
[2022-06-03] MEDS ORDERED: LEXA1TAB PO (10:08)
== END 2022-06-03 12:31 | disposition home health service (06) | DRG 314 ==
LOC: M ED 12:58 → EDBD 12:58 → M ED INP 05-13 01:24 → ENRESERV 05-13 17:01 → M MSPAV 05-13 17:02
PROVIDERS: ADMIT Internal Medicine; ATTEND Student in an Organized Health Care Education/Training Program
PROC: 30233N1 Transfusion of Nonautologous Red Blood Cells into Peripheral Vein, Percutaneous Approach (ICD-10-PCS; principal; 2022-05-13)
PROC: 0DB78ZX Excision of Stomach, Pylorus, Via Natural or Artificial Opening Endoscopic, Diagnostic (ICD-10-PCS; 2022-05-24)
PROC: 0DB48ZX Excision of Esophagogastric Junction, Via Natural or Artificial Opening Endoscopic, Diagnostic (ICD-10-PCS; 2022-05-24)
PROC: 0DBN8ZX Excision of Sigmoid Colon, Via Natural or Artificial Opening Endoscopic, Diagnostic (ICD-10-PCS; 2022-05-24)
PROC: 0DBP8ZX Excision of Rectum, Via Natural or Artificial Opening Endoscopic, Diagnostic (ICD-10-PCS; 2022-05-24)
PROC: 30233J1 Transfusion of Nonautologous Serum Albumin into Peripheral Vein, Percutaneous Approach (ICD-10-PCS; 2022-05-29)
DX: T80.219A Unspecified infection due to central venous catheter, initial encounter (principal); N18.6 End stage renal disease; J96.21 Acute and chronic respiratory failure with hypoxia; J18.9 Pneumonia, unspecified organism; I50.32 Chronic diastolic (congestive) heart failure; I13.2 Hypertensive heart and chronic kidney disease with heart failure and with stage 5 chronic kidney disease, or end stage renal disease; E87.20 Acidosis, unspecified; A09 Infectious gastroenteritis and colitis, unspecified; R78.81 Bacteremia; E46 Unspecified protein-calorie malnutrition; B96.20 Unspecified Escherichia coli [E. coli] as the cause of diseases classified elsewhere; J44.9 Chronic obstructive pulmonary disease, unspecified; K29.70 Gastritis, unspecified, without bleeding; Z99.2 Dependence on renal dialysis; M81.0 Age-related osteoporosis without current pathological fracture; Z90.79 Acquired absence of other genital organ(s); Z90.49 Acquired absence of other specified parts of digestive tract; D63.1 Anemia in chronic kidney disease; E87.6 Hypokalemia; Z99.81 Dependence on supplemental oxygen; E78.5 Hyperlipidemia, unspecified; Z79.82 Long term (current) use of aspirin; Z79.899 Other long term (current) drug therapy; Z20.822 Contact with and (suspected) exposure to COVID-19; E86.0 Dehydration; D50.9 Iron deficiency anemia, unspecified; I95.9 Hypotension, unspecified; F32.A Depression, unspecified; D37.6 Neoplasm of uncertain behavior of liver, gallbladder and bile ducts

== ENCOUNTER 2022-06-23 07:46 | Inpatient (IN) | payer MEDICARE, OTHER ==
[~2022-06-23] VITALS: Ht 157.5 cm; Wt 56.5 kg
[~2022-06-23 07:46] MED LIST changes: +HYDR-3363 PO; +LEXA1TAB PO; +META1POW PO; +MIDO5TA PO; +ONDA-83 PO; +PANT40TA29 PO; +SUCR1TA PO
[2022-06-23] MEDS ORDERED: NS 1,000 ML IV SCH (08:00)
[2022-06-23 08:41] LABS: BASO # 0.1 10^3/uL (0.0-0.2); BASO % 0.4 % (0.0-1.0); EOS # 0.3 10^3/uL (0.0-0.5); HEMATOCRIT 35.5 % (36.0-47.0); HEMOGLOBIN 10.9 g/dl (12.0-15.5); LYMPH # 2.2 10^3/uL (1.5-5.0); LYMPH % 15.2 % (24.0-44.0); MEAN CORPUSCULAR HEMOGLOBIN 28.5 pg (27.0-33.0); MEAN CORPUSCULAR HGB CONC 30.7 g/dl (32.0-36.5); MEAN CORPUSCULAR VOLUME 92.9 fl (80.0-96.0); MONO # 1.2 10^3/uL (0.0-0.8); MONO % 8.6 % (2.0-8.0); NEUTROPHILS # 10.5 10^3/uL (1.5-8.5); NEUTROPHILS % 73.1 % (36.0-66.0); PLATELET COUNT, AUTOMATED 191 10^3/uL (150-450); RED BLOOD COUNT 3.82 10^6/uL (4.00-5.40); WHITE BLOOD COUNT 14.3 10^3/uL (4.0-10.0)
[2022-06-23] MEDS: METAMUCIL (PSYLLIUM) PACKET PO SCH (09:00)
[2022-06-23] MEDS ORDERED: ISOVUE-370 76% 100ML VIAL As Ordered ONE (09:02)
[2022-06-23 09:07] LABS: BILIRUBIN,DIRECT 0.7 MG/DL (<0.4)
[2022-06-23 09:11] LABS: ALBUMIN 2.3 G/DL (3.2-5.2); BILIRUBIN,TOTAL 1.1 MG/DL (0.3-1.2); CALCIUM LEVEL 8.8 MG/DL (8.3-10.6); CREATININE FOR GFR 1.69 MG/DL (0.55-1.30); GLOMERULAR FILTRATION RATE 31.8 (>39); POTASSIUM SERUM 2.8 MMOL/L (3.5-5.1); TOTAL PROTEIN 4.5 G/DL (5.7-8.2)
[2022-06-23 09:16] LABS: INR 1.18; PROTHROMBIN TIME 15.2 SECONDS (12.5-14.5)
[2022-06-23] MEDS ORDERED: VENTAER INH (09:16)
[2022-06-23] MEDS ORDERED: SUCR1TAB56 PO (09:16)
[2022-06-23] MEDS ORDERED: META28.32 PO (09:16)
[2022-06-23] MEDS ORDERED: ONDA-83 PO (09:16)
[2022-06-23] MEDS ORDERED: MIDO5TA PO (09:16)
[2022-06-23] MEDS ORDERED: PANT-23 PO (09:16)
[2022-06-23] MEDS ORDERED: LEXA1TAB PO (09:16)
[2022-06-23] MEDS ORDERED: HOME MED LIST COMPLETE! XX SCH (09:20)
[2022-06-23 09:38] LABS: RSV AMPLIFICATION NEGATIVE (NEGATIVE)
[2022-06-23] MEDS ORDERED: OSELTAMIVIR PHOSPHATE 30MG CAPSULE PO ONE (09:50)
[2022-06-23] MEDS ORDERED: ACETAMINOPHEN TAB 650MG DOSE (2X325MG) PO PRN (11:30)
[2022-06-23] MEDS ORDERED: guaiFENesin 200 MG TAB PO PRN (11:30)
[2022-06-23] MEDS ORDERED: methylPREDNISolone 40MG 1ML VIAL IV ONE (11:30)
[2022-06-23] MEDS ORDERED: ALBUTEROL SULFATE 2.5MG/0.5ML INH NEB SOLN INH PRN (11:30)
[2022-06-23] MEDS ORDERED: SODIUM CHLORIDE 0.9% 1000ML IV PRN (11:35)
[2022-06-23] MEDS ORDERED: HEPARIN 1,000UNITS/ML 10ML VIAL (FOR RADIOLOGY & DIALYSIS ONLY) IV PRN (11:35)
[2022-06-23] MEDS ORDERED: HEPARIN 1,000UNITS/ML 10ML VIAL (FOR RADIOLOGY & DIALYSIS ONLY) XX SCH (11:35)
[2022-06-23] MEDS: AZITHROMYCIN 250MG TABLET PO SCH (13:01)
[2022-06-23] MEDS: ADVAIR HFA 230/21MCG INHALER INH SCH ×2 (13:08→19:54)
[2022-06-23] MEDS: cefTRIAXone SOD 1 GM in D5W MINI-BAG PLUS 50 ML IV SCH (13:18)
[2022-06-23] MEDS: METOCLOPRAMIDE 5 MG TAB PO SCH ×2 (13:46→20:40)
[2022-06-23] MEDS: MIDODRINE 5 MG TAB PO SCH ×2 (14:15→19:31)
[2022-06-23] MEDS: ONDANSETRON 4MG 2ML VIAL IV PRN (14:15)
[2022-06-23] MEDS: ESCITALOPRAM OXALATE 10 MG TAB (LEXAPRO) PO SCH (15:50)
[2022-06-23] MEDS: SUCRALFATE 1 GM TAB PO SCH ×2 (15:50→21:09)
[2022-06-23] MEDS: PANTOPRAZOLE 40MG TAB (PROTONIX) PO SCH (15:51)
[2022-06-23] MEDS: HEPARIN SOD (PORCINE) 5000UNITS/ML 1ML VIAL/SYRINGE SC SCH ×2 (15:59→21:09)
[2022-06-23] MEDS: KCL 10MEQ/100ML SWI (KRUN) 10 MEQ in IV 1 EA IV SCH ×2 (16:04→18:13)
[2022-06-23 21:02] VITALS: BP 145/67
[2022-06-23] MEDS: ASPIRIN 81MG ENTERIC TABLET PO SCH (21:09)
[2022-06-23] MEDS: ROSUVASTATIN 10 MG TAB (CRESTOR) PO SCH (21:09)
[2022-06-24 05:54] LABS: HEMATOCRIT 29.3 % (36.0-47.0); HEMOGLOBIN 9.1 g/dl (12.0-15.5); MEAN CORPUSCULAR HEMOGLOBIN 28.8 pg (27.0-33.0); MEAN CORPUSCULAR HGB CONC 31.1 g/dl (32.0-36.5); MEAN CORPUSCULAR VOLUME 92.7 fl (80.0-96.0); PLATELET COUNT, AUTOMATED 185 10^3/uL (150-450); RED BLOOD COUNT 3.16 10^6/uL (4.00-5.40); WHITE BLOOD COUNT 10.9 10^3/uL (4.0-10.0)
[2022-06-24 06:00] VITALS: BP 117/53
[2022-06-24] MEDS: HEPARIN SOD (PORCINE) 5000UNITS/ML 1ML VIAL/SYRINGE SC SCH ×3 (06:02→20:56)
[2022-06-24 06:17] LABS: MAGNESIUM LEVEL 1.6 MG/DL (1.8-2.4)
[2022-06-24 06:22] LABS: ALBUMIN 1.9 G/DL (3.2-5.2); BILIRUBIN,TOTAL 0.5 MG/DL (0.3-1.2); CALCIUM LEVEL 7.8 MG/DL (8.3-10.6); CREATININE FOR GFR 1.71 MG/DL (0.55-1.30); GLOMERULAR FILTRATION RATE 31.3 (>39); POTASSIUM SERUM 3.4 MMOL/L (3.5-5.1); TOTAL PROTEIN 3.9 G/DL (5.7-8.2)
[2022-06-24] MEDS ORDERED: MAG SULF 1GM/100ML (MAG RUN) 1 GM in IV 1 EA IV ONE (08:00)
[2022-06-24] MEDS: ADVAIR HFA 230/21MCG INHALER INH SCH ×2 (08:02→19:22)
[2022-06-24] MEDS: METAMUCIL (PSYLLIUM) PACKET PO SCH (09:00)
[2022-06-24] MEDS: SUCRALFATE 1 GM TAB PO SCH (09:58)
[2022-06-24] MEDS: AZITHROMYCIN 250MG TABLET PO SCH (09:58)
[2022-06-24] MEDS: FENOFIBRATE 145MG TABLET (TRICOR) PO SCH (09:58)
[2022-06-24] MEDS: ESCITALOPRAM OXALATE 10 MG TAB (LEXAPRO) PO SCH (09:58)
[2022-06-24] MEDS: PANTOPRAZOLE 40MG TAB (PROTONIX) PO SCH (09:58)
[2022-06-24] MEDS: METOCLOPRAMIDE 5 MG TAB PO SCH ×3 (09:59→17:25)
[2022-06-24] MEDS: MIDODRINE 5 MG TAB PO SCH ×3 (09:59→16:38)
[2022-06-24] MEDS: MAGNESIUM OXIDE 400MG TAB (MAG-OX) PO SCH ×2 (09:59→20:55)
[2022-06-24] MEDS: ONDANSETRON 4MG 2ML VIAL IV PRN (10:53)
[2022-06-24] MEDS: cefTRIAXone SOD 1 GM in D5W MINI-BAG PLUS 50 ML IV SCH (13:05)
[2022-06-24 14:00] VITALS: BP 119/58
[2022-06-24] MEDS: ALBUTEROL 90 MCG/ACT 8GM HFA INHALER INH PRN (15:47)
[2022-06-24 20:40] VITALS: BP 133/66
[2022-06-24] MEDS: ASPIRIN 81MG ENTERIC TABLET PO SCH (20:55)
[2022-06-24] MEDS: ROSUVASTATIN 10 MG TAB (CRESTOR) PO SCH (20:55)
[2022-06-25] MEDS ORDERED: SODIUM CHLORIDE 0.9% 1000ML IV PRN (06:00)
[2022-06-25] MEDS ORDERED: HEPARIN 1,000UNITS/ML 10ML VIAL (FOR RADIOLOGY & DIALYSIS ONLY) XX SCH (06:00)
[2022-06-25] MEDS ORDERED: HEPARIN 1,000UNITS/ML 10ML VIAL (FOR RADIOLOGY & DIALYSIS ONLY) IV PRN (06:00)
[2022-06-25] MEDS: METOCLOPRAMIDE 5 MG TAB PO SCH ×3 (06:21→17:00)
[2022-06-25] MEDS: MAGNESIUM OXIDE 400MG TAB (MAG-OX) PO SCH ×2 (06:21→21:09)
[2022-06-25] MEDS: PANTOPRAZOLE 40MG TAB (PROTONIX) PO SCH (06:22)
[2022-06-25] MEDS: METAMUCIL (PSYLLIUM) PACKET PO SCH (06:22)
[2022-06-25] MEDS: FENOFIBRATE 145MG TABLET (TRICOR) PO SCH (06:22)
[2022-06-25] MEDS: MIDODRINE 5 MG TAB PO SCH ×3 (06:22→16:00)
[2022-06-25] MEDS: AZITHROMYCIN 250MG TABLET PO SCH (06:22)
[2022-06-25] MEDS: ESCITALOPRAM OXALATE 10 MG TAB (LEXAPRO) PO SCH (06:22)
[2022-06-25] MEDS: HEPARIN SOD (PORCINE) 5000UNITS/ML 1ML VIAL/SYRINGE SC SCH ×3 (06:23→21:09)
[2022-06-25 06:42] VITALS: BP 134/66
[2022-06-25] MEDS: ADVAIR HFA 230/21MCG INHALER INH SCH ×2 (07:40→19:43)
[2022-06-25 08:22] LABS: BASO % 0.4 % (0.0-1.0); EOS # 0.2 10^3/uL (0.0-0.5); EOS % 1.8 % (0.0-3.0); HEMATOCRIT 28.8 % (36.0-47.0); HEMOGLOBIN 8.9 g/dl (12.0-15.5); LYMPH # 1.3 10^3/uL (1.5-5.0); MEAN CORPUSCULAR HEMOGLOBIN 28.4 pg (27.0-33.0); MEAN CORPUSCULAR HGB CONC 30.9 g/dl (32.0-36.5); MONO # 1.1 10^3/uL (0.0-0.8); MONO % 11.8 % (2.0-8.0); NEUTROPHILS # 6.8 10^3/uL (1.5-8.5); NEUTROPHILS % 71.5 % (36.0-66.0); PLATELET COUNT, AUTOMATED 208 10^3/uL (150-450); RED BLOOD COUNT 3.13 10^6/uL (4.00-5.40); WHITE BLOOD COUNT 9.5 10^3/uL (4.0-10.0)
[2022-06-25 09:03] LABS: CALCIUM LEVEL 8.3 MG/DL (8.3-10.6); CREATININE FOR GFR 1.74 MG/DL (0.55-1.30); GLOMERULAR FILTRATION RATE 30.7 (>39); POTASSIUM SERUM 2.7 MMOL/L (3.5-5.1)
[2022-06-25] MEDS: cefTRIAXone SOD 1 GM in D5W MINI-BAG PLUS 50 ML IV SCH (16:53)
[2022-06-25] MEDS: ALBUTEROL 90 MCG/ACT 8GM HFA INHALER INH PRN (16:57)
[2022-06-25 17:06] VITALS: BP 160/84
[2022-06-25] MEDS ORDERED: OSELTAMIVIR PHOSPHATE 30MG CAPSULE PO SCH (18:00)
[2022-06-25 20:35] VITALS: BP 141/63
[2022-06-25] MEDS: ASPIRIN 81MG ENTERIC TABLET PO SCH (21:08)
[2022-06-25] MEDS: ROSUVASTATIN 10 MG TAB (CRESTOR) PO SCH (21:09)
[2022-06-26] MEDS: HEPARIN SOD (PORCINE) 5000UNITS/ML 1ML VIAL/SYRINGE SC SCH (05:24)
[2022-06-26 05:35] VITALS: BP 131/64
[2022-06-26 06:32] LABS: BASO % 0.7 % (0.0-1.0); EOS # 0.2 10^3/uL (0.0-0.5); EOS % 3.9 % (0.0-3.0); HEMATOCRIT 27.9 % (36.0-47.0); HEMOGLOBIN 8.6 g/dl (12.0-15.5); LYMPH # 1.2 10^3/uL (1.5-5.0); LYMPH % 19.2 % (24.0-44.0); MEAN CORPUSCULAR HEMOGLOBIN 28.5 pg (27.0-33.0); MEAN CORPUSCULAR HGB CONC 30.8 g/dl (32.0-36.5); MEAN CORPUSCULAR VOLUME 92.4 fl (80.0-96.0); MONO # 0.9 10^3/uL (0.0-0.8); MONO % 14.1 % (2.0-8.0); NEUTROPHILS # 3.7 10^3/uL (1.5-8.5); NEUTROPHILS % 61.3 % (36.0-66.0); PLATELET COUNT, AUTOMATED 173 10^3/uL (150-450); RED BLOOD COUNT 3.02 10^6/uL (4.00-5.40); WHITE BLOOD COUNT 6.1 10^3/uL (4.0-10.0)
[2022-06-26 07:07] LABS: CALCIUM LEVEL 7.5 MG/DL (8.3-10.6); CREATININE FOR GFR 1.3 MG/DL (0.55-1.30); POTASSIUM SERUM 3.5 MMOL/L (3.5-5.1)
[2022-06-26] MEDS: ADVAIR HFA 230/21MCG INHALER INH SCH (07:27)
[2022-06-26] MEDS: METOCLOPRAMIDE 5 MG TAB PO SCH (08:36)
[2022-06-26] MEDS: FENOFIBRATE 145MG TABLET (TRICOR) PO SCH (08:36)
[2022-06-26] MEDS: PANTOPRAZOLE 40MG TAB (PROTONIX) PO SCH (08:36)
[2022-06-26] MEDS: METAMUCIL (PSYLLIUM) PACKET PO SCH (08:36)
[2022-06-26] MEDS: ESCITALOPRAM OXALATE 10 MG TAB (LEXAPRO) PO SCH (08:36)
[2022-06-26] MEDS: MIDODRINE 5 MG TAB PO SCH (08:36)
[2022-06-26] MEDS: MAGNESIUM OXIDE 400MG TAB (MAG-OX) PO SCH (08:36)
[2022-06-26] MEDS ORDERED: CEFD300C41 PO (09:05)
[2022-06-26] MEDS ORDERED: OSEL30CA PO (09:05)
[2022-06-26] MEDS ORDERED: GUAI20TA PO (09:05)
== END 2022-06-26 11:43 | disposition home or self-care (01) | DRG 193 ==
LOC: M ED 07:46 → M ED INP 11:27 → M MSPAV 20:54
PROVIDERS: ADMIT Family Medicine; ATTEND Internal Medicine Nephrology
DX: J10.1 Influenza due to other identified influenza virus with other respiratory manifestations (principal); N18.6 End stage renal disease; J96.11 Chronic respiratory failure with hypoxia; I50.32 Chronic diastolic (congestive) heart failure; J98.11 Atelectasis; I13.2 Hypertensive heart and chronic kidney disease with heart failure and with stage 5 chronic kidney disease, or end stage renal disease; J90 Pleural effusion, not elsewhere classified; N17.9 Acute kidney failure, unspecified; E46 Unspecified protein-calorie malnutrition; J44.9 Chronic obstructive pulmonary disease, unspecified; M81.0 Age-related osteoporosis without current pathological fracture; E87.6 Hypokalemia; E83.42 Hypomagnesemia; I73.9 Peripheral vascular disease, unspecified; E78.5 Hyperlipidemia, unspecified; I95.1 Orthostatic hypotension; F32.A Depression, unspecified; K21.9 Gastro-esophageal reflux disease without esophagitis; K44.9 Diaphragmatic hernia without obstruction or gangrene; K76.0 Fatty (change of) liver, not elsewhere classified; N18.30 Chronic kidney disease, stage 3 unspecified; Z79.82 Long term (current) use of aspirin; Z79.899 Other long term (current) drug therapy; D64.9 Anemia, unspecified